=== PATIENT | female | born 1940 | race Caucasian/White ===

== ENCOUNTER 2016-02-26 15:35 | Observation (INO) ==
--- NOTE | 2016-02-26 17:09 | Emergency Department Note ---
Disposition Clinical Impression: Brain lesion, Confusion, Hypertension, Diabetes mellitus, Obesity Disposition: Admitted As Inpatient Referrals: Fabio Mckenzie MD [Primary Care Provider] - Forms: ED Satisfaction Letter General Adult HPI - General Chief complaint: ED Neuro Symptoms/Deficit Stated complaint: Numbness to mouth and bilat hands Source: patient Limitations: no limitations - History of Present Illness HPI Narrative: 76-year-old female comes in from home with family members, there is concern for a headache and some numbness and tingling around the mouth and bilateral hands which started about 9 AM. The patient was doing fine yesterday. She developed some symptomatology today, there is no history of trauma neck stiffness rash or fever no convulsion or eufemia confusion but the patient does like she cannot think as clearly as usual. There is no history of chest pain shortness of breath or abdominal pain no vomiting or diarrhea no back pain and no trouble moving the arms or legs independently. No coldness of blueness numbness or weakness of the arms or legs. No rashes or fevers. The patient denies any significant anxiety. She reports the numbness has resolved. There is no history of bleeding of any sort. She does have a history of atrial fibrillation but his never had a stroke. There is no history of leg swelling or pain or coughing up blood or syncope. Her has been no unilateral arm or leg weakness, no eufemia dysarthria or her finding difficulty. Onset (ago): hour(s) Pain Scale: 6 - Related Data Home Medications Medication Instructions Recorded Confirmed Aspirin Enteric Coated [Aspirin EC] 81 mg PO DAILY 01/15/15 01/15/15 Ergocalciferol (VITAMIN D2) 50,000 unit PO QWEEK 01/15/15 01/15/15 [Vitamin D2 (50,000 UNIT)] Insulin NPH/REG 70/30 [HumuLIN 30 unit SQ TIDAC 01/15/15 01/15/15 70/30 VIAL] Previous Rx's Medication Instructions Recorded Atorvastatin [Lipitor] 80 mg PO HS #30 tablet 01/19/15 Diltiazem CD (24hr) [Cardizem CD] 180 mg PO DAILY #30 cap.er.24h 01/19/15 Metoprolol [Lopressor] 25 mg PO BID #60 tablet 01/19/15 Warfarin [Coumadin] 5 mg PO DAILY@1800 #7 tablet 01/19/15 Allergies Allergy/AdvReac Type Severity Reaction Status Date / Time Sulfa (Sulfonamide Allergy Swelling Verified 01/15/15 16:22 Antibiotics) of Lip/Tongue/Throat All systems ED: reviewed and negative except as stated. Past Medical History - Past Medical History Medical history: Reports: atrial fibrillation, diabetes, fibromyalgia, hypertension, kidney stones, renal disease Surgical history: Reports: orthopedic, other, other Psychiatric history: Reports: no psych history - Social History Smoking Status: Never smoker Smokeless Tobacco Status: No Alcohol use: Reports: none Drug use: Reports: none Physical Exam - General Limitations: no limitations General appearance: alert, in no apparent distress - Head Head exam: atraumatic, normocephalic, normal inspection - Eye Eye exam: Present: normal appearance, PERRL, EOMI. Absent: miosis, mydriasis - ENT ENT exam: normal exam, normal oropharynx, mucous membranes moist - Neck Neck exam: Present: normal inspection, full ROM, trachea midline. Absent: meningismus - Chest Chest inspection: Present: symmetric chest wall rise. Absent: tenderness - Respiratory Respiratory exam: Present: normal lung sounds bilaterally. Absent: respiratory distress - Cardiovascular Cardiovascular exam: Present: regular rate, normal rhythm, normal heart sounds - Abdominal Exam Abdominal exam: Present: soft, Non-Tender. Absent: tenderness, distention, guarding, rebound, rigidity, pulsatile mass - Extremities Exam Extremities exam: Present: normal inspection, full ROM, normal capillary refill. Absent: tenderness, pedal edema, joint swelling, calf tenderness - Expanded Lower Extremity Exam Lower leg exam: Absent: Homans' sign Neurovascular/Tendon exam: Absent: motor deficit, sensory deficit, tendon deficit - Back Exam Back exam: Present: normal inspection, full ROM. Absent: tenderness, CVA tenderness (R), CVA tenderness (L), vertebral tenderness - Neurological Exam Neurological exam: Present: alert, oriented X3, CN II-XII intact. Absent: motor sensory deficit - Psychiatric Psychiatric exam: Present: normal affect, normal mood - Skin Skin exam: Present: warm, dry, intact, normal color Course Vital Signs Temperature 97.9 F 02/26/16 16:22 Pulse Rate 79 02/26/16 16:22 Respiratory Rate 18 02/26/16 16:22 Blood Pressure 197/96 02/26/16 16:22 O2 Sat by Pulse Oximetry 95 02/26/16 16:22 Temperature 97.9 F 02/26/16 16:22 Pulse Rate 76 02/26/16 17:56 Respiratory Rate 16 02/26/16 17:56 Blood Pressure 189/92 02/26/16 17:56 O2 Sat by Pulse Oximetry 93 L 02/26/16 17:56 Oxygen Delivery Oxygen Delivery Room Air Medical Decision Making - MDM Narrative Medical decision making narrative: The patient's brain imaging shows an apparent cyst. I discussed the case with Dr. Tavreas neurologist can consult on the patient does not necessarily think the patient needs transfer based on the anatomic abnormality. In the ED. The patient's testing was essentially unremarkable however her blood pressure did remain persistently elevated. She did perseverate some in the ED and we did order some labetalol. The patient's neck is supple she has not febrile her white count is normal her CRP is negative and she displays no focal defects. The patient described lip tingling and or numbness of both extremities. I do not think the patient has meningitis. She is not describing chest pain her chest x-ray is normal. I do not think she has an aortic dissection or carotid dissection based on clinical history and negative chest x-ray findings. She does have palpable pulses. The patient does have significant hypertension which may be contributory to her apparent perseveration and/or confusion, hypertensive urgency or hypertensive emergency or certainly in the differential. The patient displays no focal neurologic defects. An MRI of the brain, and or a CTA chest may be considered. I consulted the hospitalist on- call. - Lab Data Lab results reviewed: Yes I reviewed the patient's lab results. Result diagrams: 02/26/16 18:10 02/26/16 18:10 Lab Results 02/26/16 02/26/16 02/26/16 Range/Units 16:27 18:08 18:10 WBC 9.4 (4.3-11.1) K/mcL RBC 4.80 (3.82-4.97) M/mcL Hgb 13.8 (11.5-15.4) g/dL Hct 42.2 (35.3-44.9) % MCV 87.9 (83.0-100.0) fL MCH 28.8 (28.0-33.3) pg MCHC 32.7 (31.6-35.5) g/dL RDW 12.9 (11.5-14.5) % Plt Count 225 (140-400) K/mcL MPV 12.3 (9.4-12.4) fL Immature Gran % 0.3 (0-4) % Seg Neutrophils % 71.3 % Lymphocytes % 16.9 % Monocytes % 7.9 % Eosinophils % 3.0 % Basophils % 0.6 % Neutrophils # 6.7 (1.6-8.9) K/mcL Lymphocytes # 1.6 (0.6-4.6) K/mcL Monocytes # 0.7 (0.0-1.3) K/mcL Eosinophils # 0.3 (0.0-0.6) K/mcL Basophils # 0.1 (0.0-0.2) K/mcL PT (9.4-12.1) Seconds INR APTT (26.0-36.0) Seconds Sodium (136-145) mEq/L Potassium (3.5-4.5) mEq/L Chloride (98-109) mEq/L Carbon Dioxide (19-29) mEq/L BUN (7-20) mg/dL Creatinine (0.57-1.11) mg/dL Est GFR ( Amer) (> 60) Est GFR (Non-Af Amer) (> 60) BUN/Creatinine Ratio (6-26) Glucose (70-99) mg/dL POC Glucose 258 H (58-89) Calculated Osmolality (280-300) Lactic Acid (0.5-2.2) mmol/L Calcium (8.6-10.8) mg/dL Total Bilirubin (0.2-1.2) mg/dL Direct Bilirubin (0.0-0.5) mg/dL Indirect Bilirubin (0.0-1.2) mg/dL AST (5-34) Units/L ALT (0-55) Units/L Alkaline Phosphatase (38-126) Units/L Ammonia (18-72) mcmol/L Troponin I (0-0.03) ng/mL C-Reactive Protein (Less than 5) mg/L Serum Total Protein (6.0-8.3) g/dL Albumin (3.5-5.0) g/dL Globulin (2.4-3.5) g/dL Albumin/Globulin Ratio (1.1-2.2) Urine Color (Yellow) Urine Clarity (Clear) Urine pH (5.0-8.0) pH Units Ur Specific Guthrie (1.010-1.025) Urine Protein (Neg-Trace) mg/dL Urine Glucose (UA) (Normal) mg/dL Urine Ketones (Negative) mg/dL Urine Blood (Negative) Urine Nitrite (Negative) Urine Bilirubin (Negative) Urine Urobilinogen (Normal) mg/dL Ur Leukocyte Esterase (Negative) Urine Microscopic RBC (0-3) per hpf Urine Microscopic WBC (0-3) per hpf Ur Squamous Epith Cells (None-Few) per lpf Urine Bacteria (None-Few) per hpf Hyaline Casts (None-Few) per lpf Ur Culture Indicated? (NO) Salicylates (15-30) mg/dL Urine Opiates Screen (Kwaczo=252) ng/mL Acetaminophen (10-30) mcg/mL Ur Barbiturates Screen (Gecxqf=917) ng/mL Ur Phencyclidine Scrn (Cutoff=25) ng/mL Ur Amphetamines Screen (Qrtmif=3951) ng/mL U Benzodiazepines Scrn (Egklse=976) ng/mL Urine Cocaine Screen (Cutoff= 300) ng/mL U Marijuana (THC) Screen (Cutoff = 50) ng/mL Specimen Rejected Clotted 02/26/16 02/26/16 02/26/16 Range/Units 18:10 18:10 18:10 WBC (4.3-11.1) K/mcL RBC (3.82-4.97) M/mcL Hgb (11.5-15.4) g/dL Hct (35.3-44.9) % MCV (83.0-100.0) fL MCH (28.0-33.3) pg MCHC (31.6-35.5) g/dL RDW (11.5-14.5) % Plt Count (140-400) K/mcL MPV (9.4-12.4) fL Immature Gran % (0-4) % Seg Neutrophils % % Lymphocytes % % Monocytes % % Eosinophils % % Basophils % % Neutrophils # (1.6-8.9) K/mcL Lymphocytes # (0.6-4.6) K/mcL Monocytes # (0.0-1.3) K/mcL Eosinophils # (0.0-0.6) K/mcL Basophils # (0.0-0.2) K/mcL PT (9.4-12.1) Seconds INR APTT (26.0-36.0) Seconds Sodium 139 (136-145) mEq/L Potassium 4.3 (3.5-4.5) mEq/L Chloride 103 (98-109) mEq/L Carbon Dioxide 28 (19-29) mEq/L BUN 20 (7-20) mg/dL Creatinine 0.99 (0.57-1.11) mg/dL Est GFR ( Amer) > 60 (> 60) Est GFR (Non-Af Amer) 55 L (> 60) BUN/Creatinine Ratio 20 (6-26) Glucose 265 H (70-99) mg/dL POC Glucose (58-89) Calculated Osmolality 300 (280-300) Lactic Acid (0.5-2.2) mmol/L Calcium 9.5 (8.6-10.8) mg/dL Total Bilirubin 0.7 (0.2-1.2) mg/dL Direct Bilirubin 0.3 (0.0-0.5) mg/dL Indirect Bilirubin 0.4 (0.0-1.2) mg/dL AST 33 (5-34) Units/L ALT 40 (0-55) Units/L Alkaline Phosphatase 167 H (38-126) Units/L Ammonia (18-72) mcmol/L Troponin I 0.01 (0-0.03) ng/mL C-Reactive Protein 2 (Less than 5) mg/L Serum Total Protein 6.7 (6.0-8.3) g/dL Albumin 3.1 L (3.5-5.0) g/dL Globulin 3.6 H (2.4-3.5) g/dL Albumin/Globulin Ratio 0.9 L (1.1-2.2) Urine Color (Yellow) Urine Clarity (Clear) Urine pH (5.0-8.0) pH Units Ur Specific Guthrie (1.010-1.025) Urine Protein (Neg-Trace) mg/dL Urine Glucose (UA) (Normal) mg/dL Urine Ketones (Negative) mg/dL Urine Blood (Negative) Urine Nitrite (Negative) Urine Bilirubin (Negative) Urine Urobilinogen (Normal) mg/dL Ur Leukocyte Esterase (Negative) Urine Microscopic RBC (0-3) per hpf Urine Microscopic WBC (0-3) per hpf Ur Squamous Epith Cells (None-Few) per lpf Urine Bacteria (None-Few) per hpf Hyaline Casts (None-Few) per lpf Ur Culture Indicated? (NO) Salicylates (15-30) mg/dL Urine Opiates Screen (Cuosqb=564) ng/mL Acetaminophen (10-30) mcg/mL Ur Barbiturates Screen (Bkslnd=047) ng/mL Ur Phencyclidine Scrn (Cutoff=25) ng/mL Ur Amphetamines Screen (Dhsbga=9597) ng/mL U Benzodiazepines Scrn (Oigluk=062) ng/mL Urine Cocaine Screen (Cutoff= 300) ng/mL U Marijuana (THC) Screen (Cutoff = 50) ng/mL Specimen Rejected 02/26/16 02/26/16 02/26/16 Range/Units 18:10 18:10 18:10 WBC (4.3-11.1) K/mcL RBC (3.82-4.97) M/mcL Hgb (11.5-15.4) g/dL Hct (35.3-44.9) % MCV (83.0-100.0) fL MCH (28.0-33.3) pg MCHC (31.6-35.5) g/dL RDW (11.5-14.5) % Plt Count (140-400) K/mcL MPV (9.4-12.4) fL Immature Gran % (0-4) % Seg Neutrophils % % Lymphocytes % % Monocytes % % Eosinophils % % Basophils % % Neutrophils # (1.6-8.9) K/mcL Lymphocytes # (0.6-4.6) K/mcL Monocytes # (0.0-1.3) K/mcL Eosinophils # (0.0-0.6) K/mcL Basophils # (0.0-0.2) K/mcL PT 10.9 (9.4-12.1) Seconds INR 1.0 APTT 29.3 (26.0-36.0) Seconds Sodium (136-145) mEq/L Potassium (3.5-4.5) mEq/L Chloride (98-109) mEq/L Carbon Dioxide (19-29) mEq/L BUN (7-20) mg/dL Creatinine (0.57-1.11) mg/dL Est GFR ( Amer) (> 60) Est GFR (Non-Af Amer) (> 60) BUN/Creatinine Ratio (6-26) Glucose (70-99) mg/dL POC Glucose (58-89) Calculated Osmolality (280-300) Lactic Acid (0.5-2.2) mmol/L Calcium (8.6-10.8) mg/dL Total Bilirubin (0.2-1.2) mg/dL Direct Bilirubin (0.0-0.5) mg/dL Indirect Bilirubin (0.0-1.2) mg/dL AST (5-34) Units/L ALT (0-55) Units/L Alkaline Phosphatase (38-126) Units/L Ammonia 34 (18-72) mcmol/L Troponin I (0-0.03) ng/mL C-Reactive Protein (Less than 5) mg/L Serum Total Protein (6.0-8.3) g/dL Albumin (3.5-5.0) g/dL Globulin (2.4-3.5) g/dL Albumin/Globulin Ratio (1.1-2.2) Urine Color (Yellow) Urine Clarity (Clear) Urine pH (5.0-8.0) pH Units Ur Specific Guthrie (1.010-1.025) Urine Protein (Neg-Trace) mg/dL Urine Glucose (UA) (Normal) mg/dL Urine Ketones (Negative) mg/dL Urine Blood (Negative) Urine Nitrite (Negative) Urine Bilirubin (Negative) Urine Urobilinogen (Normal) mg/dL Ur Leukocyte Esterase (Negative) Urine Microscopic RBC (0-3) per hpf Urine Microscopic WBC (0-3) per hpf Ur Squamous Epith Cells (None-Few) per lpf Urine Bacteria (None-Few) per hpf Hyaline Casts (None-Few) per lpf Ur Culture Indicated? (NO) Salicylates < 5.0 L (15-30) mg/dL Urine Opiates Screen (Mgzhlf=389) ng/mL Acetaminophen < 1.0 L (10-30) mcg/mL Ur Barbiturates Screen (Xqjvir=446) ng/mL Ur Phencyclidine Scrn (Cutoff=25) ng/mL Ur Amphetamines Screen (Tfzwed=7984) ng/mL U Benzodiazepines Scrn (Mysdzj=849) ng/mL Urine Cocaine Screen (Cutoff= 300) ng/mL U Marijuana (THC) Screen (Cutoff = 50) ng/mL Specimen Rejected 02/26/16 02/26/16 02/26/16 Range/Units 18:47 19:30 19:30 WBC (4.3-11.1) K/mcL RBC (3.82-4.97) M/mcL Hgb (11.5-15.4) g/dL Hct (35.3-44.9) % MCV (83.0-100.0) fL MCH (28.0-33.3) pg MCHC (31.6-35.5) g/dL RDW (11.5-14.5) % Plt Count (140-400) K/mcL MPV (9.4-12.4) fL Immature Gran % (0-4) % Seg Neutrophils % % Lymphocytes % % Monocytes % % Eosinophils % % Basophils % % Neutrophils # (1.6-8.9) K/mcL Lymphocytes # (0.6-4.6) K/mcL Monocytes # (0.0-1.3) K/mcL Eosinophils # (0.0-0.6) K/mcL Basophils # (0.0-0.2) K/mcL PT (9.4-12.1) Seconds INR APTT (26.0-36.0) Seconds Sodium (136-145) mEq/L Potassium (3.5-4.5) mEq/L Chloride (98-109) mEq/L Carbon Dioxide (19-29) mEq/L BUN (7-20) mg/dL Creatinine (0.57-1.11) mg/dL Est GFR ( Amer) (> 60) Est GFR (Non-Af Amer) (> 60) BUN/Creatinine Ratio (6-26) Glucose (70-99) mg/dL POC Glucose (58-89) Calculated Osmolality (280-300) Lactic Acid 0.9 (0.5-2.2) mmol/L Calcium (8.6-10.8) mg/dL Total Bilirubin (0.2-1.2) mg/dL Direct Bilirubin (0.0-0.5) mg/dL Indirect Bilirubin (0.0-1.2) mg/dL AST (5-34) Units/L ALT (0-55) Units/L Alkaline Phosphatase (38-126) Units/L Ammonia (18-72) mcmol/L Troponin I (0-0.03) ng/mL C-Reactive Protein (Less than 5) mg/L Serum Total Protein (6.0-8.3) g/dL Albumin (3.5-5.0) g/dL Globulin (2.4-3.5) g/dL Albumin/Globulin Ratio (1.1-2.2) Urine Color Yellow (Yellow) Urine Clarity Clear (Clear) Urine pH 7.5 (5.0-8.0) pH Units Ur Specific Guthrie 1.016 (1.010-1.025) Urine Protein >=300 H (Neg-Trace) mg/dL Urine Glucose (UA) 500 H (Normal) mg/dL Urine Ketones Negative (Negative) mg/dL Urine Blood Moderate H (Negative) Urine Nitrite Negative (Negative) Urine Bilirubin Negative (Negative) Urine Urobilinogen Normal (Normal) mg/dL Ur Leukocyte Esterase Negative (Negative) Urine Microscopic RBC 5-15 H (0-3) per hpf Urine Microscopic WBC 0-3 (0-3) per hpf Ur Squamous Epith Cells Many H (None-Few) per lpf Urine Bacteria None Seen (None-Few) per hpf Hyaline Casts None Seen (None-Few) per lpf Ur Culture Indicated? NO (NO) Salicylates (15-30) mg/dL Urine Opiates Screen Negative (Ddxeqz=221) ng/mL Acetaminophen (10-30) mcg/mL Ur Barbiturates Screen Negative (Nspxgx=264) ng/mL Ur Phencyclidine Scrn Negative (Cutoff=25) ng/mL Ur Amphetamines Screen Negative (Hxaojh=2309) ng/mL U Benzodiazepines Scrn Negative (Pfpnwr=384) ng/mL Urine Cocaine Screen Negative (Cutoff= 300) ng/mL U Marijuana (THC) Screen Negative (Cutoff = 50) ng/mL Specimen Rejected - Radiology Data Radiology results reviewed: Yes I reviewed the patient's radiology results.
[2016-02-26 18:29] LABS: Basophils # 0.1 K/mcL (0.0-0.2); Basophils % 0.6 %; Eosinophils # 0.3 K/mcL (0.0-0.6); Hematocrit 42.2 % (35.3-44.9); Hemoglobin 13.8 g/dL (11.5-15.4); Immature Granulocytes % 0.3 % (0-4); Lymphocytes # 1.6 K/mcL (0.6-4.6); Lymphocytes % 16.9 %; Mean Corpuscular HGB Conc 32.7 g/dL (31.6-35.5); Mean Corpuscular Hemoglobin 28.8 pg (28.0-33.3); Mean Corpuscular Volume 87.9 fL (83.0-100.0); Mean Platelet Volume 12.3 fL (9.4-12.4); Monocytes # 0.7 K/mcL (0.0-1.3); Monocytes % 7.9 %; Neutrophils # 6.7 K/mcL (1.6-8.9); Platelet Count 225 K/mcL (140-400); Red Cell Distribution Width 12.9 % (11.5-14.5); Segmented Neutrophils % 71.3 %
[2016-02-26 18:36] LABS: Prothrombin Time 10.9 Seconds (9.4-12.1)
[2016-02-26 18:39] LABS: Activated Partial Thrombo Time 29.3 Seconds (26.0-36.0); BUN/Creatinine Ratio 20 (6-26); Blood Urea Nitrogen 20 mg/dL (7-20); Calcium 9.5 mg/dL (8.6-10.8); Carbon Dioxide 28 mEq/L (19-29); Chloride 103 mEq/L (98-109); Glucose 265 mg/dL (70-99); Osmolality,Calculated 300 (280-300); Potassium 4.3 mEq/L (3.5-4.5); Sodium 139 mEq/L (136-145); eGFR For African Americans > 60 (> 60); eGFR For Non-African Americans 55 (> 60)
[2016-02-26 18:41] LABS: Acetaminophen < 1.0 mcg/mL (10-30); Albumin 3.1 g/dL (3.5-5.0); Albumin/Globulin Ratio 0.9 (1.1-2.2); Bilirubin,Direct 0.3 mg/dL (0.0-0.5); Bilirubin,Indirect 0.4 mg/dL (0.0-1.2); Bilirubin,Total 0.7 mg/dL (0.2-1.2); Globulin 3.6 g/dL (2.4-3.5); Salicylate < 5.0 mg/dL (15-30); Total Protein 6.7 g/dL (6.0-8.3)
[2016-02-26 20:04] LABS: Bilirubin,Urine Negative (Negative); Blood,Urine Moderate (Negative); Clarity,Urine Clear (Clear); Color,Urine Yellow (Yellow); Glucose,Urine (UA) 500 mg/dL (Normal); Ketones,Urine Negative (Negative); Leukocyte Esterase,Urine Negative (Negative); Nitrite,Urine Negative (Negative); PH,Urine 7.5 pH Units (5.0-8.0); Protein,Urine >=300 mg/dL (Neg-Trace); Specific Gravity,Urine 1.016 (1.010-1.025); Urobilinogen,Urine Normal (Normal)
[2016-02-26 20:07] LABS: Bacteria,Urine None Seen per hpf (None-Few); Hyaline Casts,Urine None Seen per lpf (None-Few); Squamous Epithelial Cell,Urine Many per lpf (None-Few); WBC,Urine 0-3 per hpf (0-3)
[2016-02-26 20:10] LABS: Amphetamine Screen,Urine Negative ng/mL (Cutoff=1000); Barbiturate Screen,Urine Negative ng/mL (Cutoff=200); Benzodiazepines Screen,Urine Negative ng/mL (Cutoff=200); Cannabinoid Screen,Urine Negative ng/mL (Cutoff = 50); Cocaine Screen,Urine Negative ng/mL (Cutoff= 300); Opiate Screen,Urine Negative ng/mL (Cutoff=300); Phencyclidine Screen,Urine Negative ng/mL (Cutoff=25)
[2016-02-26] MEDS ORDERED: *HR* Labetalol 20 MG/4 ML SYRINGE IVP ONE ×2 (20:34→22:57)
[2016-02-26] MEDS ORDERED: Ondansetron 4 MG/2 ML VIAL IVP PRN (21:22)
[2016-02-26] MEDS ORDERED: Acetaminophen 325 MG TABLET PO PRN (21:22)
[2016-02-26] MEDS ORDERED: *HR* HYDROcodone/Acet 5/325 mg TABLET PO PRN (21:22)
[2016-02-26] MEDS ORDERED: *HR* Morphine 2 MG/ML SYRINGE IVP PRN (21:22)
[2016-02-26] MEDS ORDERED: Naloxone 0.4 MG/ML INJ IVP PRN (21:22)
[2016-02-26] MEDS ORDERED: D5% in Water 1,000 ML IV PRN (21:26)
[2016-02-26] MEDS ORDERED: *HR* Dextrose 50 % in Water (Syg) 50 ML SYRINGE IVP PRN (21:26)
[2016-02-26] MEDS ORDERED: Dextrose Gel 15 GM PO PRN ×2 (21:26)
--- NOTE | 2016-02-26 23:26 | Internal Med History&Physical ---
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 Laterality: unspecified laterality Qualified Code(s): E11.319 - Type 2 diabetes mellitus with unspecified diabetic retinopathy without macular edema; Z79.4 - care home ( current) use of insulin (4) Chronic kidney disease (CKD) Current visit: Yes Status: Chronic Qualifiers: Chronic kidney disease stage: stage 2 (mild) Qualified Code(s): N18.2 - Chronic kidney disease, stage 2 (mild) (5) Hypertension Current visit: Yes Status: Chronic Qualifiers: Hypertension type: essential hypertension Qualified Code(s): I10 - Essential (primary) hypertension (6) Brain lesion Current visit: Yes Status: Acute (7) Obesity Current visit: Yes Status: Chronic Qualifiers: Obesity type: unspecified obesity type Obesity severity: morbid Qualified Code(s): E66.01 - Morbid (severe) obesity due to excess calories Internal Medicine - H&P: HPI Chief complaint: Altered mental status Admitted From: Home Plans for Post Hospital Care: Home History of present illness: 74 Y/O F with PMH of DM, HTN, CKD, Afib, CAD, Fibromyalgia Patient is currently confused, history obtained from her Last time of wellness was 1300 02/26/16. Per her he had gone home for lunch at noon, and she was in her usual state of health. However, his granddaughter called him at 3.00p.m and stated that patient had become suddenly confused and could not remember anything from the day. She is unable to remember her daily events, her address; she remembers and recognizes her family but does not remember anything else. There is no speech deficits, no focal motor weakness, and no ataxia. No recent falls, her blood glucose has been controlled. There is a history of Afib per chart but is unable to verify this, home meds does not show that patient is on Coumadin. Work up in ER significant for persistently elevated blood pressures, confusion. Labs essentially unremarkable except UA which showed proteinuria, hematuria. CXR showed mild pulmonary congestion. 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 No previous head CT to compare with At my time of review, I had concerns for acute ischemic CVA, Hypertensive Urgency vs Emergency and asked for a STAT Brain MRI, Neuroradiologist recommended it be done with and without contrast. I did not give any blood pressure medications as Brain CT already ruled out a hemorrhage. Physical Examination was significant for blood pressure 190/89, heart rate WNL, no obvious respiratory or painful distress. Neuro exam is remarkable for altered mental status with patient oriented to person only. She however has no speech deficits, moves all limbs equally and has no facial droop. She is maintaining her airway. Chest is clear; abdomen is obese, not tender. heart sounds S1, S2 only, and no m/g/r. Extremities no edema. Assessment/Plan: 1. Altered mental status, possibly secondary to hypertensive encephalopathy. Possible PRES. Brain MRI ruled out acute infarct, Neurochecks q4h. Fall precautions. Will restart home blood pressure medications. BP at time of review improved to 178/76 after a dose of labetalol. Will consult neurology for further evaluation possible EEG to rule out non-convulsive seizures. 2. HTN Urgency vs Emergency: Improving, resume home meds 3. Brain Cyst: Neuro eval a.m 4. DM: Diabetic diet, check A1C a.m., basal, prandial and supplemental insulin, check FS ACHS 5. Afib: Rate controlled, , not on anticoagulation, reason unknown. Continue Aspirin for now. Continue Coreg 6. CKD: Cr at baseline. 7. CAD: Stable, chronic, no chest pain, resume home meds Past Med Surg Social Fam HX - Past Medical History Medical history: atrial fibrillation, diabetes, fibromyalgia, hypertension, kidney stones, renal disease Psychiatric history: no psych history - Past Surgical History Surgical History: orthopedic, other, other - Social History Smoking Status: Never smoker Smokeless Tobacco Status: No Alcohol use: none Drug use: none - Family History Mother Living Status: Hx Family Cancer: Yes (Reproductive CA) Father Living Status: Hx Family Cardiac Disorders: Yes Hx Family Endocrine Disorder: Yes (Diabetes) Internal Medicine - H&P: Meds Aspirin Enteric Coated [Aspirin EC] 81 mg PO DAILY 01/15/15 [History] Ergocalciferol (VITAMIN D2) [Vitamin D2 (50,000 UNIT)] 50,000 unit PO QWEEK 08/23 [History] Atorvastatin [Lipitor] 80 mg PO HS #30 tablet 01/19/15 [Rx] Carvedilol [Coreg] 6.25 mg PO BIDWM 02/26/16 [History] Insulin Degludec [Tresiba Flextouch U-100] 20 unit SQ DAILY 02/26/16 [History] Losartan [Cozaar] 25 mg PO DAILY 02/26/16 [History] Allergies Sulfa (Sulfonamide Antibiotics) Allergy (Verified 01/15/15 16:22) Swelling of Lip/Tongue/Throat ROS unobtainable: due to mental status All Systems PM: A 10-system review of systems was performed and is negative for pertinent findings except as documented above in the HPI. - Constitutional Vitals: Temp Pulse Resp BP Pulse Ox 97.9 F 87 16 178/76 95 02/26/16 16:22 02/26/16 22:00 02/26/16 23:22 02/26/16 23:22 02/26/16 22:00 General appearance: Present: A&O X 1, pleasant, no acute distress, obese - Head Head exam: Present: atraumatic - Eye Eye exam: Present: PERRL, conjuntiva pink, sclera anicteric - Neck Neck exam general surgery: Present: normal inspection - Respiratory Respiratory exam: Present: CTAB - Cardiovascular Cardiovascular exam: Present: irregular rhythm, +S1, +S2 - GI/Abdominal GI/Abdominal exam: Present: normal bowel sounds, soft, no peritoneal signs. Absent: tenderness - Extremities Exam Extremities exam: Absent: pedal edema - Neurological Exam Neurological exam: Present: alert, CN II-XII intact, strengths equal and symetr throughout. Absent: pronater drift, facial droop, speech deficit - Skin Skin exam: Present: dry Internal Med - H&P Results - Labs CBC & Chem 7: 02/26/16 18:10 02/26/16 18:10
[2016-02-27 04:59] LABS: Basophils # 0.1 K/mcL (0.0-0.2); Basophils % 0.4 %; Eosinophils % 0.2 %; Hematocrit 39.5 % (35.3-44.9); Hemoglobin 13.1 g/dL (11.5-15.4); Immature Granulocytes % 0.4 % (0-4); Lymphocytes # 1.5 K/mcL (0.6-4.6); Lymphocytes % 10.8 %; Mean Corpuscular HGB Conc 33.2 g/dL (31.6-35.5); Mean Corpuscular Hemoglobin 29.3 pg (28.0-33.3); Mean Corpuscular Volume 88.4 fL (83.0-100.0); Mean Platelet Volume 12.3 fL (9.4-12.4); Monocytes % 7.4 %; Neutrophils # 11.2 K/mcL (1.6-8.9); Platelet Count 214 K/mcL (140-400); Red Blood Count 4.47 M/mcL (3.82-4.97); Red Cell Distribution Width 12.9 % (11.5-14.5); Segmented Neutrophils % 80.8 %
[2016-02-27 05:03] LABS: INR 1.1; Prothrombin Time 12.4 Seconds (9.4-12.1)
[2016-02-27 05:06] LABS: Activated Partial Thrombo Time 27.1 Seconds (26.0-36.0)
[2016-02-27 05:10] LABS: Hemoglobin A1C 11.6 %
[2016-02-27 05:16] LABS: BUN/Creatinine Ratio 20 (6-26); Blood Urea Nitrogen 20 mg/dL (7-20); Carbon Dioxide 27 mEq/L (19-29); Chloride 102 mEq/L (98-109); Glucose 265 mg/dL (70-99); Osmolality,Calculated 296 (280-300); Potassium 4.7 mEq/L (3.5-4.5); Sodium 137 mEq/L (136-145); eGFR For African Americans > 60 (> 60); eGFR For Non-African Americans 53 (> 60)
[2016-02-27] MEDS: Insulin LISPRO 300 UNITS/3 ML VIAL SQ SCH ×6 (08:18→17:18)
[2016-02-27] MEDS: Aspirin Enteric Coated 81 MG Tablet PO SCH (08:18)
[2016-02-27] MEDS ORDERED: Diltiazem CD (24hr) 180 MG CAPSULE PO SCH (09:00)
--- NOTE | 2016-02-27 11:52 | Neurology - Consult Note ---
Date of Encounter: 02/27/16 Time of Encounter: 11:52 Assessment and Plan (1) Acute encephalopathy Current Visit: Yes Status: Acute NO evidence of stroke. Symptoms are mainly characterized by memory difficulty confusion without focal neurological deficits, likely complicated by medical conditions. 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 Please continue medical and supportive care. Will sign off and please call if any questions History of Present Illness Chief complaint: Memory difficulty HPI: Ms. Baugh is a 76 year old female with PMH significant for atrial fibrillation , HTN, DM, Obesity CKD who developed acute onset of memory difficulty starting yesterday. Interviewed in the presence of her . Tells me that yesterday the patient suddenly developed speech difficulty, actually she could still talk but was confused and unable to remember things and did not know where she was. Symptoms lasted few hours and slowly improved. She still does not feel that she is back to normal and still struggles to remember things but no focal weakness. CT of head showed third ventricle choloid cyst therefore neurology was consulted. MRI of brain showed anterior third ventricle choloid cyst, 1.8 mm in size no mass effects and no evidence of hydrocephalus Past Med Surg Social Fam HX - Past Medical History Medical history: atrial fibrillation, diabetes, fibromyalgia, hypertension, kidney stones, renal disease Psychiatric history: no psych history - Past Surgical History Surgical History: orthopedic, other, other - Social History Smoking Status: Never smoker Smokeless Tobacco Status: No Alcohol use: none Drug use: none - Family History Mother Living Status: Hx Family Cancer: Yes (Reproductive CA) Father Living Status: Hx Family Cardiac Disorders: Yes Hx Family Endocrine Disorder: Yes (Diabetes) Medications and Allergies Aspirin Enteric Coated [Aspirin EC] 81 mg PO DAILY 01/15/15 [History] Ergocalciferol (VITAMIN D2) [Vitamin D2 (50,000 UNIT)] 50,000 unit PO QWEEK 08/23 [History] Atorvastatin [Lipitor] 80 mg PO HS #30 tablet 01/19/15 [Rx] Carvedilol [Coreg] 6.25 mg PO BIDWM 02/26/16 [History] Insulin Degludec [Tresiba Flextouch U-100] 20 unit SQ DAILY 02/26/16 [History] Losartan [Cozaar] 25 mg PO DAILY 02/26/16 [History] Allergies Sulfa (Sulfonamide Antibiotics) Allergy (Verified 01/15/15 16:22) Swelling of Lip/Tongue/Throat All Systems: A 10-system review of systems was performed and is negative for pertinent findings except as documented above in the HPI. Physical Examination - Vital Signs Vital Signs: Initial Vital Signs Temp Pulse Resp BP Pulse Ox 97.9 F 79 18 197/96 95 02/26/16 16:22 02/26/16 16:22 02/26/16 16:22 02/26/16 16:22 02/26/16 16:22 - Constitutional General appearance: chronically ill - Neurologic Sensorimotor examination: intact Detailed motor examination: grossly full strength in all extremities Detailed sensory examination: intact Posture: other (None) Reflexes: Biceps: 0, Triceps: 0, Brachioradialis: 0, Patella: 0, Achilles: 0 Mental Status Examination: awake, alert, oriented to person, oriented to place, oriented to time, follows commands appropriately, answers questions appropriately, no agnosia, no aphasia, no aproxia Cranial nerve examination: PERRL, EOMI, visual solorio intact, corneal reflexes brisk symmetrically, sensory to face intact, mastication intact, no facial asymmetry is present, no dysarthria, hearing is intact symmetrically, soft palate elevates bilaterally upon phonation, gag reflex intact, flexes SCM and trapezius muscles symmetrically with full power, tongue protrudes midline, no atrophy or facial fasiculations present Results - Laboratory Findings CBC and BMP: 02/27/16 04:27 02/27/16 04:27 Abnormal lab findings: Abnormal lab results WBC 13.9 K/mcL (4.3-11.1) H 02/27/16 04:27 Neutrophils # 11.2 K/mcL (1.6-8.9) H 02/27/16 04:27 PT 12.4 Seconds (9.4-12.1) H 02/27/16 04:27 Potassium 4.7 mEq/L (3.5-4.5) H 02/27/16 04:27 Est GFR (Non-Af Amer) 53 (> 60) L 02/27/16 04:27 Glucose 265 mg/dL (70-99) H 02/27/16 04:27 POC Glucose 222 (58-89) H 02/27/16 07:32 Hemoglobin A1c 11.6 % (-5.6) H 02/27/16 04:27 Alkaline Phosphatase 167 Units/L (38-126) H 02/26/16 18:10 Albumin 3.1 g/dL (3.5-5.0) L 02/26/16 18:10 Globulin 3.6 g/dL (2.4-3.5) H 02/26/16 18:10 Albumin/Globulin Ratio 0.9 (1.1-2.2) L 02/26/16 18:10 Urine Protein >=300 mg/dL (Neg-Trace) H 02/26/16 19:30 Urine Glucose (UA) 500 mg/dL (Normal) H 02/26/16 19:30 Urine Blood Moderate (Negative) H 02/26/16 19:30 Urine Microscopic RBC 5-15 per hpf (0-3) H 02/26/16 19:30 Ur Squamous Epith Cells Many per lpf (None-Few) H 02/26/16 19:30 Salicylates < 5.0 mg/dL (15-30) L 02/26/16 18:10 Acetaminophen < 1.0 mcg/mL (10-30) L 02/26/16 18:10 Consult Discharge Plan - Plan Referrals: Fabio Mckenzie MD [Primary Care Provider] -
--- NOTE | 2016-02-27 12:06 | Internal Med Progress Note ---
Date of Encounter: 02/27/16 Time of Encounter: 11:45 - Assessment and plan (1) Acute encephalopathy Current Visit: Yes Status: Acute Assessment and plan: Neurology consult appreciated. No signs of stroke. No further evaluation recommended the neurologist this time. Most likely Due to hypertensive urgency. 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 Evaluated by neurology. Recommend no further investigation at this time. Most likely benign. (3) Diabetes mellitus Current Visit: Yes Status: Chronic Assessment and plan: Uncontrolled. On sliding scale insulin. Diabetic diet. Will adjust insulin regimen to control blood sugars better. 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 Continue carvedilol, losartan Qualifiers: Hypertension type: essential hypertension Qualified Code(s): I10 - Essential (primary) hypertension (5) Hypertensive urgency Current Visit: Yes Status: Resolved Assessment and plan: This has improved. (6) Chronic kidney disease (CKD) Current Visit: Yes Status: Chronic Assessment and plan: Renal function remained stable Qualifiers: Chronic kidney disease stage: stage 2 (mild) Qualified Code(s): N18.2 - Chronic kidney disease, stage 2 (mild) (7) Obesity Current Visit: Yes Status: Chronic Qualifiers: Obesity type: unspecified obesity type Obesity severity: morbid Qualified Code(s): E66.01 - Morbid (severe) obesity due to excess calories - Subjective Interval history: Patient is currently somnolent. easily awakes. No new complaints reported at this time. No headache. - Constitutional Vitals: Temp Pulse Resp BP Pulse Ox 98.0 F 76 18 149/78 91 L 02/27/16 07:33 02/27/16 07:33 02/27/16 07:33 02/27/16 07:33 02/27/16 08:10 General appearance: Present: A&O X 1, pleasant, no acute distress, obese - Respiratory Respiratory exam: Present: CTAB. Absent: accessory muscle use, rales, rhonchi, wheezes - Cardiovascular Cardiovascular exam: Present: RRR, +S1, +S2. Absent: diastolic murmur, gallop, rubs, systolic murmur - Extremities Exam Extremities exam: Present: warm, radial pulses palpable and symetrical. Absent : calf tenderness, cyanotic, pedal edema - Psychiatric Psychiatric exam: Present: normal affect - Skin Skin exam: Present: dry, intact Internal Medicine: Result - Labs CBC & Chem 7: 02/27/16 04:27 02/27/16 04:27 Labs: Short CBC 02/27/16 Range/Units 04:27 WBC 13.9 H (4.3-11.1) K/mcL Hgb 13.1 (11.5-15.4) g/dL Hct 39.5 (35.3-44.9) % Plt Count 214 (140-400) K/mcL Neutrophils # 11.2 H (1.6-8.9) K/mcL BMP 02/27/16 04:27 Sodium 137 Potassium 4.7 H Chloride 102 Carbon Dioxide 27 BUN 20 Creatinine 1.01 Glucose 265 H Calcium 9.0 - ABG Interpretation ABG results: PT/INR, D-dimer PT 12.4 Seconds (9.4-12.1) H 02/27/16 04:27 Consult Discharge Plan - Plan Referrals: Fabio Mckenzie MD [Primary Care Provider] - - Attending Attestation This document has been at least partially created by [employer] recognition technology by Dr. Harrington. Errors in grammar, wording or other phrases may exist. If errors are found after the documentation is signed, they will be addressed individually in the addendum section of this document when appropriate. Medical Decision Making - MDM Narrative Medical decision making narrative: Low risk for complications - Lab Data Lab results reviewed: Yes I reviewed the patient's lab results. Result diagrams: 02/27/16 04:27 02/27/16 04:27 Lab Results 02/27/16 02/27/16 02/27/16 Range/Units 04:27 04:27 04:27 WBC 13.9 H (4.3-11.1) K/mcL RBC 4.47 (3.82-4.97) M/mcL Hgb 13.1 (11.5-15.4) g/dL Hct 39.5 (35.3-44.9) % MCV 88.4 (83.0-100.0) fL MCH 29.3 (28.0-33.3) pg MCHC 33.2 (31.6-35.5) g/dL RDW 12.9 (11.5-14.5) % Plt Count 214 (140-400) K/mcL MPV 12.3 (9.4-12.4) fL Immature Gran % 0.4 (0-4) % Seg Neutrophils % 80.8 % Lymphocytes % 10.8 % Monocytes % 7.4 % Eosinophils % 0.2 % Basophils % 0.4 % Neutrophils # 11.2 H (1.6-8.9) K/mcL Lymphocytes # 1.5 (0.6-4.6) K/mcL Monocytes # 1.0 (0.0-1.3) K/mcL Eosinophils # 0.0 (0.0-0.6) K/mcL Basophils # 0.1 (0.0-0.2) K/mcL PT 12.4 H (9.4-12.1) Seconds INR 1.1 APTT 27.1 (26.0-36.0) Seconds Sodium 137 (136-145) mEq/L Potassium 4.7 H (3.5-4.5) mEq/L Chloride 102 (98-109) mEq/L Carbon Dioxide 27 (19-29) mEq/L BUN 20 (7-20) mg/dL Creatinine 1.01 (0.57-1.11) mg/dL Est GFR ( Amer) > 60 (> 60) Est GFR (Non-Af Amer) 53 L (> 60) BUN/Creatinine Ratio 20 (6-26) Glucose 265 H (70-99) mg/dL POC Glucose (58-89) Est Mean Plasma Glucose mg/dl Hemoglobin A1c ( - 5.6) % Calculated Osmolality 296 (280-300) Calcium 9.0 (8.6-10.8) mg/dL 02/27/16 02/27/16 02/27/16 Range/Units 04:27 07:32 12:01 WBC (4.3-11.1) K/mcL RBC (3.82-4.97) M/mcL Hgb (11.5-15.4) g/dL Hct (35.3-44.9) % MCV (83.0-100.0) fL MCH (28.0-33.3) pg MCHC (31.6-35.5) g/dL RDW (11.5-14.5) % Plt Count (140-400) K/mcL MPV (9.4-12.4) fL Immature Gran % (0-4) % Seg Neutrophils % % Lymphocytes % % Monocytes % % Eosinophils % % Basophils % % Neutrophils # (1.6-8.9) K/mcL Lymphocytes # (0.6-4.6) K/mcL Monocytes # (0.0-1.3) K/mcL Eosinophils # (0.0-0.6) K/mcL Basophils # (0.0-0.2) K/mcL PT (9.4-12.1) Seconds INR APTT (26.0-36.0) Seconds Sodium (136-145) mEq/L Potassium (3.5-4.5) mEq/L Chloride (98-109) mEq/L Carbon Dioxide (19-29) mEq/L BUN (7-20) mg/dL Creatinine (0.57-1.11) mg/dL Est GFR ( Amer) (> 60) Est GFR (Non-Af Amer) (> 60) BUN/Creatinine Ratio (6-26) Glucose (70-99) mg/dL POC Glucose 222 H 331 H (58-89) Est Mean Plasma Glucose 286 mg/dl Hemoglobin A1c 11.6 H ( - 5.6) % Calculated Osmolality (280-300) Calcium (8.6-10.8) mg/dL
--- NOTE | 2016-02-27 13:23 | Electrocardiograph Report ---
[facility] Test Date: 2016-02-26 Pat Name: Courtney Baugh Department: 105 Room: 3B11 Gender: F Manager [employer]: KHUSHI : 1940 Requested By: Trevon Sanders Order Number: [id number] Reading MD: Quinton Story MD Measurements Intervals Amo Rate: 76 P: 12 [place]: 161 QRS: -5 QRSD: 96 T: 122 QT: 374 QTc: 405 Interpretive Statements SINUS RHYTHM LEFT VENTRICULAR HYPERTROPHY AND ST-T CHANGE Electronically Signed On 02-27-16 13:22:05 EST by Quinton Story MD
[2016-02-27] MEDS ORDERED: *HR* Warfarin 5 MG TABLET PO SCH (18:00)
[2016-02-27] MEDS ORDERED: Insulin DETEMIR 100 UNIT/ML X5UNITS SQ SCH (21:00)
[2016-02-27] MEDS ORDERED: Insulin LISPRO 300 UNITS/3 ML VIAL SQ SCH (21:00)
[2016-02-28] MEDS: Insulin LISPRO 300 UNITS/3 ML VIAL SQ SCH ×4 (07:31→11:34)
[2016-02-28] MEDS: Aspirin Enteric Coated 81 MG Tablet PO SCH (08:26)
--- NOTE | 2016-02-28 10:23 | Discharge Summary ---
Date of Encounter: 02/28/16 Time of Encounter: 10:30 - Discharge Diagnosis (1) Acute encephalopathy Priority: Primary Status: Acute (2) Brain lesion Priority: Secondary Status: Acute (3) Diabetes mellitus Priority: Secondary Status: Chronic Qualifiers: Diabetes mellitus type: type 2 Diabetes mellitus complication status: with kidney complications Diabetes mellitus complication detail: with chronic kidney disease Diabetes mellitus emt intermediate insulin use: with emt intermediate use Chronic kidney disease stage: stage 2 (mild) Qualified Code(s): E11.22 - Type 2 diabetes mellitus with diabetic chronic kidney disease; N18.2 - Chronic kidney disease, stage 2 (mild); Z79.4 - terminal worker (current) use of insulin (4) Hypertension Priority: Secondary Status: Chronic Qualifiers: Hypertension type: essential hypertension Qualified Code(s): I10 - Essential (primary) hypertension (5) Hypertensive urgency Priority: Secondary Status: Resolved (6) Chronic kidney disease (CKD) Priority: Secondary Status: Chronic Qualifiers: Chronic kidney disease stage: stage 2 (mild) Qualified Code(s): N18.2 - Chronic kidney disease, stage 2 (mild) (7) Obesity Priority: Secondary Status: Chronic Qualifiers: Obesity type: unspecified obesity type Obesity severity: morbid Qualified Code(s): E66.01 - Morbid (severe) obesity due to excess calories - Discharge Medications Prescriptions: HydrALAZINE 25 mg PO Q8HR #90 tablet Home Medications: Aspirin Enteric Coated [Aspirin EC] 81 mg PO DAILY 01/15/15 [History] Ergocalciferol (VITAMIN D2) [Vitamin D2 (50,000 UNIT)] 50,000 unit PO QWEEK 08/23 [History] Atorvastatin [Lipitor] 80 mg PO HS #30 tablet 01/19/15 [Rx] Carvedilol [Coreg] 6.25 mg PO BIDWM 02/26/16 [History] Insulin Degludec [Tresiba Flextouch U-100] 20 unit SQ DAILY 02/26/16 [History] Losartan [Cozaar] 25 mg PO DAILY 02/26/16 [History] HydrALAZINE 25 mg PO Q8HR #90 tablet 02/28/16 [Rx] Allergies/Adverse Reactions: Allergies Sulfa (Sulfonamide Antibiotics) Allergy (Verified 01/15/15 16:22) Swelling of Lip/Tongue/Throat Date of admission: 02/26/16 21:22 Primary care physician: Fabio Mckenzie, Consults: 02/26/16 23:20 Consult to Neurology [CONS] Routine Consulting Provider: [facility] Reason for Consult: encephalopathy, confusion Call Completed: No 02/27/16 12:02 Consult to Occupational Therapy [CONS] Routine Comment: Evaluate, develop and implement POC Consult to Physical Therapy [CONS] Routine Comment: Evaluate, develop and implement POC Consult to Launch Leader [CONS] Routine Reason for SW Consult: Discharge planning 02/27/16 16:35 Consult to Speech Therapy [CONS] Routine Comment: Evaluate, develop and implement POC Reason for Consult: Speech difficulty/ encephalopathy on presentation Call Completed: No Discharging clinician: Yadiel Harrington Anticipated date of discharge: 02/28/16 - Patient Status Disposition: Home Health Service Condition: Good Functional capacity at discharge: independent ambulation Overall status at discharge: patient is back to baseline - Discharge Instructions Instructions: Diabetes Mellitus Type 2 in Adults (DC), Chronic Hypertension (DC ) Follow Up With: Fabio Mckenzie MD [Primary Care Provider] - (In 1-2 weeks) Additional Instructions: Follow up with nephrology in 1-2 weeks Follow-up appointments: If there is not an appointment listed below, please call your physician and schedule a follow-up appointment. If you have congestive heart failure and your symptoms return, make an appointment with your physician. Symptoms: If your condition changes or you experience any of the following symptoms, notify your physician immediately: Unusual or worsening pain, fever, persistent nausea and vomiting, bleeding, increase in swelling (especially in your legs), sudden weight gain, extreme dizziness, chest pain, increased drainage or redness from a wound or incision. Go to the emergency department if you experience a problem with breathing. Weights: If you have a history of swelling or shortness of breath, weigh yourself daily and notify your physician if you have a weight gain of two or more pounds in one day or 5 or more pounds in a week. If you experience any of the warning signs for stroke: Sudden numbness or weakness of the face, arm or leg; especially on one side of the body, sudden confusion, trouble speaking or understanding, sudden trouble seeing in one or both eyes, sudden trouble walking, dizziness, loss of balance or coordination, sudden sever headache with no cause; Call 911 or go to the emergency room. Stroke is a medical emergency. Some risk factors for stroke: Age, cigarette smoking, diabetes, excessive alcohol consumption, family history , high blood pressure, overweight, physical inactivity, prior stroke, heart attack, diagnosis of carotid artery stenosis or other artery disease. If you smoke, STOP: Smoking or tobacco use significantly increases your risk of heart and lung disease. Your chance of disease greatly increases if you continue to smoke. For more information, call the [place] tobacco quit line for smoking cessation QUIT-NOW ( ) - Diet and Activity Activity: increase activity as tolerated Diet: diabetic diet, low fat, low cholesterol, low salt diet Hospital course: Ms. Baugh is a 76 year old female with a history of chronic kidney disease, hypertension, diabetes mellitus was observed in the ER after presenting with complaints of altered mental status and difficulty with speech. On presentation she had severely elevated blood pressure. MRI of the brain was done which did not show any acute infarct. Patient was then observed in the hospital and her blood pressure was managed with oral and intravenous medications. Her blood pressure has since improved. She is no longer confused. Her speech has also improved. Neurology was consulted. He did not recommend any further management and did not believe the patient had any signs of stroke. At this time, patient is stable to be discharged home. She will be started on hydralazine for high blood pressure. She also takes carvedilol and losartan. Her heart rate has been in the 60s. Her potassium is 4.7. As such a third medication to control her blood pressure is warranted and should have increasing her current antihypertensives. Her encephalopathy appears to be related to her hypertensive urgency and it has since subsided. - Time Spent with Patient Total time spent providing and/or coordinating discharge services: Greater than 30 minutes (40 min) - Constitutional Vitals: Temp Pulse Resp BP Pulse Ox 97.5 F L 60 16 152/76 91 L 02/28/16 07:06 02/28/16 07:06 02/28/16 07:06 02/28/16 07:06 02/28/16 07:06 General appearance: Present: cooperative, A&O X 3, pleasant, no acute distress, obese, answers questions appropriately - Respiratory Respiratory exam: Present: CTAB. Absent: accessory muscle use, rales, rhonchi, wheezes - Cardiovascular Cardiovascular exam: Present: RRR, +S1, +S2. Absent: diastolic murmur, gallop, rubs, systolic murmur - GI/Abdominal GI/Abdominal exam: Present: normal bowel sounds, soft, no peritoneal signs. Absent: distended, tenderness - Extremities Exam Extremities exam: Present: pedal edema (Trace), warm, radial pulses palpable and symetrical. Absent: calf tenderness, cyanotic - Neurological Exam Neurological exam: Present: CN II-XII intact, oriented X3, no focal deficits. Absent: facial droop, speech deficit - Attending Attestation This document has been at least partially created by [employer] recognition technology by Dr. Harrington. Errors in grammar, wording or other phrases may exist. If errors are found after the documentation is signed, they will be addressed individually in the addendum section of this document when appropriate.
[2016-02-28 11:15] VITALS: BP 175/78
[2016-02-28 11:39] LABS: Basophils # 0.1 K/mcL (0.0-0.2); Basophils % 0.7 %; Eosinophils # 0.3 K/mcL (0.0-0.6); Eosinophils % 3.1 %; Hematocrit 41.8 % (35.3-44.9); Hemoglobin 13.4 g/dL (11.5-15.4); Immature Granulocytes % 0.4 % (0-4); Immature Platelets 10.1 % (1.1-6.1); Lymphocytes # 1.5 K/mcL (0.6-4.6); Lymphocytes % 16.6 %; Mean Corpuscular HGB Conc 32.1 g/dL (31.6-35.5); Mean Corpuscular Hemoglobin 28.8 pg (28.0-33.3); Mean Corpuscular Volume 89.7 fL (83.0-100.0); Mean Platelet Volume 12.6 fL (9.4-12.4); Monocytes # 0.8 K/mcL (0.0-1.3); Neutrophils # 6.5 K/mcL (1.6-8.9); Platelet Count 206 K/mcL (140-400); Red Blood Count 4.66 M/mcL (3.82-4.97); Red Cell Distribution Width 13.2 % (11.5-14.5); Segmented Neutrophils % 70.2 %
[2016-02-28 11:51] LABS: Calcium 9.4 mg/dL (8.6-10.8); Potassium 4.7 mEq/L (3.5-4.5)
[2016-02-28] MEDS ORDERED: hydrALAZINE 25 MG TABLET PO SCH (12:06)
--- NOTE | 2016-02-28 12:09 | Physician Discharge Referral ---
Home Health/Hosp Referral Info Transfer to: Home Health Provider in Charge Post Discharge: PCP - Diagnosis (1) Acute encephalopathy Priority: Primary Status: Acute (2) Brain lesion Priority: Secondary Status: Acute (3) Diabetes mellitus Priority: Secondary Status: Chronic (4) Hypertension Priority: Secondary Status: Chronic (5) Hypertensive urgency Priority: Secondary Status: Resolved (6) Chronic kidney disease (CKD) Priority: Secondary Status: Chronic (7) Obesity Priority: Secondary Status: Chronic - Respiratory Orders Smoking Cessation: Smoking cessation has been advised. For more information, call the [place] Tobacco Quit Line at 5-537-XMZR-NOW. - Diet/Nutrition Diet/Nutrition Orders: No Added Salt (LINNEA), Cardiac - Activity Activity Orders: Ambulate - Services Needed Following services are medically necessary services: Nursing, Physical Therapy, Occupational Therapy - Transfer Medications Prescriptions: HydrALAZINE 25 mg PO Q8HR #90 tablet Home Medications: Aspirin Enteric Coated [Aspirin EC] 81 mg PO DAILY 01/15/15 [History] Ergocalciferol (VITAMIN D2) [Vitamin D2 (50,000 UNIT)] 50,000 unit PO QWEEK 08/23 [History] Atorvastatin [Lipitor] 80 mg PO HS #30 tablet 01/19/15 [Rx] Carvedilol [Coreg] 6.25 mg PO BIDWM 02/26/16 [History] Insulin Degludec [Tresiba Flextouch U-100] 20 unit SQ DAILY 02/26/16 [History] Losartan [Cozaar] 25 mg PO DAILY 02/26/16 [History] HydrALAZINE 25 mg PO Q8HR #90 tablet 02/28/16 [Rx] Allergies/Adverse Reactions: Allergies Sulfa (Sulfonamide Antibiotics) Allergy (Verified 01/15/15 16:22) Swelling of Lip/Tongue/Throat Certification: Further, I certify that my clinical findings support that this patient is homebound (i.e. absences from home require considerable and taxing effort and are for medical reasons or taoism services or infrequently or short duration when for other reasons) because: Homebound Reason: Patient requires assistance of a person or device to safely leave home Attestation: My signature below is to certify that this patient is under my care and that I, or nurse practitioner, or a physician's assistant operations manager working with me, has a face-to -face encounter with this patient.
== END 2016-02-28 13:24 | disposition home health service (06) ==
LOC: 3BNU 15:35 → EMEROO 15:35 → SUATTDRO 21:22 → 3BNU 23:10
PROVIDERS: ADMIT Internal Medicine; ATTEND Internal Medicine

== ENCOUNTER 2017-11-01 02:38 | Inpatient (IN) ==
[2017-11-01] MEDS ORDERED: 0.9 % Sodium Chloride 500 ML IVC ONE (02:50)
--- NOTE | 2017-11-01 03:01 | Emergency Department Note ---
Disposition Clinical Impression: Altered mental status Qualifiers: Altered mental status type: disorientation Qualified Code(s): R41.0 - Disorientation, unspecified Disposition: Still a Patient General Adult HPI - General Chief complaint: ED Fall Time Seen by Provider: 11/01/17 02:49 Source: patient, EMS Limitations: no limitations - History of Present Illness HPI Narrative: ED ATTESTATION NOTE: I examined this patient and my medical decision-making was reviewed with the Resident Physician/HEEL VARNISHER/PA/Student. I have personally performed a face to face evaluation on this patient & I agree with the documented findings, disposition and treatment plan as described except to the extent set forth below. Patient was seen with emergency medicine resident Mark Lara please see copy of his note for details of this encounter Briefly: 77-year-old female via EMS from private home patient is on the toilet for many hours fell off for several hours family member at [facility] to check on his mother and called EMS. was at the house however the patient refused EMS to be called at that time. She is altered and slightly sluggish in her verbal responses when she is usually awake and alert and ambulatory. Patient will get an ED workup for sepsis/UTI. Patient get IV fluids urinalysis blood work lactic acid EKG. Admission anticipated, disposition pending Pain Scale: 0 - Related Data Home Medications Medication Instructions Recorded Confirmed Aspirin Enteric Coated [Aspirin EC] 81 mg PO DAILY 01/15/15 02/26/16 Ergocalciferol (VITAMIN D2) 50,000 unit PO QWEEK 01/15/15 02/26/16 [Vitamin D2 (50,000 UNIT)] Carvedilol [Coreg] 6.25 mg PO BIDWM 02/26/16 02/26/16 Insulin Degludec [Tresiba 20 unit SQ DAILY 02/26/16 02/26/16 Flextouch U-100] Losartan [Cozaar] 25 mg PO DAILY 02/26/16 02/26/16 Previous Rx's Medication Instructions Recorded Atorvastatin [Lipitor] 80 mg PO HS #30 tablet 01/19/15 hydrALAZINE [HydrALAZINE] 25 mg PO Q8HR #90 tablet 02/28/16 Allergies Allergy/AdvReac Type Severity Reaction Status Date / Time Sulfa (Sulfonamide Allergy Swelling Verified 01/15/15 16:22 Antibiotics) of Lip/Tongue/Throat Past Medical History - Past Medical History Medical history: Reports: atrial fibrillation, diabetes, fibromyalgia, hypertension, kidney stones, renal disease Surgical history: Reports: orthopedic, other, other Psychiatric history: Reports: no psych history - Social History Smoking Status: Never smoker Smokeless Tobacco Status: No Alcohol use: Reports: none Drug use: Reports: none Physical Exam - General Limitations: no limitations General appearance: alert Course Vital Signs Temperature 98.0 F 11/01/17 02:47 Pulse Rate 99 11/01/17 02:47 Respiratory Rate 20 11/01/17 02:47 Blood Pressure 155/86 11/01/17 02:47 O2 Sat by Pulse Oximetry 92 11/01/17 02:47 Temperature 98.0 F 11/01/17 02:47 Pulse Rate 99 11/01/17 02:47 Respiratory Rate 20 11/01/17 02:47 Blood Pressure 155/86 11/01/17 02:47 O2 Sat by Pulse Oximetry 92 11/01/17 02:47 Oxygen Delivery Oxygen Delivery Room Air
--- NOTE | 2017-11-01 03:32 | Emergency Department Note ---
Disposition Clinical Impression: Altered mental status Qualifiers: Altered mental status type: disorientation Qualified Code(s): R41.0 - Disorientation, unspecified Disposition: Admitted As Inpatient Time of Disposition: 06:38 Altered Mental Status HPI - General Chief Complaint: ED Altered Mental Status Stated Complaint: Altered mental status Time Seen by Provider: 11/01/17 02:49 Source: patient, EMS Mode of arrival: EMS Limitations: no limitations Nursing Notes Reviewed: Yes Vital Signs Reviewed: Yes - History of Present Illness HPI Narrative: 77-year-old female presents to the emergency department complaining of altered mental status. Family states that approximately noon today she went to the bathroom and said that she was sitting on the toilet but did not want EMS to be called she sat there until this evening where they said that she fell they had a difficult time getting her up and she became very confused. This was witnessed fall she did not hit her head did not lose consciousness. They said she has not been acting right. She says she does have history of urinary tract infections that seems like this is what could be. She does have chronic venous stasis and does have chronic ulcers in her legs but does not want wound care to coming to the house to treat them. Patient otherwise has no chest pain no shortness of breath no abdominal pain. She does not hurt anywhere. Patient has not had any fevers. They said this is been going on since earlier today otherwise she was normal yesterday. - Related Data Home Medications Medication Instructions Recorded Confirmed Aspirin Enteric Coated [Aspirin EC] 81 mg PO DAILY 01/15/15 02/26/16 Ergocalciferol (VITAMIN D2) 50,000 unit PO QWEEK 01/15/15 02/26/16 [Vitamin D2 (50,000 UNIT)] Carvedilol [Coreg] 6.25 mg PO BIDWM 02/26/16 02/26/16 Insulin Degludec [Tresiba 20 unit SQ DAILY 02/26/16 02/26/16 Flextouch U-100] Losartan [Cozaar] 25 mg PO DAILY 02/26/16 02/26/16 Previous Rx's Medication Instructions Recorded Atorvastatin [Lipitor] 80 mg PO HS #30 tablet 01/19/15 hydrALAZINE [HydrALAZINE] 25 mg PO Q8HR #90 tablet 02/28/16 Allergies Allergy/AdvReac Type Severity Reaction Status Date / Time Sulfa (Sulfonamide Allergy Swelling Verified 01/15/15 16:22 Antibiotics) of Lip/Tongue/Throat All systems ED: reviewed and negative except as stated. Review of Systems: As Per HPI Constitutional: Reports: weakness. Denies: fever, chills, weight change Eyes: Denies: eye pain, eye discharge, vision change ENT ED: Denies: ear pain, throat pain, dental pain, hearing loss, epistaxis, congestion, dysphagia Cardiovascular: Denies: chest pain, palpitations, dyspnea on exertion, edema, syncope Respiratory: Denies: cough, dyspnea, wheezes, hemoptysis, stridor Gastrointestinal: Denies: abdominal pain, nausea, vomiting, diarrhea, constipation, hematemesis, melena, hematochezia Genitourinary: Denies: dysuria, frequency, hematuria, discharge Musculoskeletal: Denies: back pain, neck pain, arthralgia, myalgia Integumentary: Denies: rash, abrasion, lesions Neurological: Denies: headache, weakness, numbness, paresthesias, confusion, abnormal gait, vertigo Psychiatric: Denies: anxiety, depression, suicidal thoughts, homicidal thoughts , auditory hallucinations, visual hallucinations Endocrine: Denies: fatigue Hematological/Lymphatic: Denies: easy bleeding, easy bruising Allergic/Immunologic: Denies: facial swelling, urticaria Past Medical History - Past Medical History Attestation: Yes The following information was validated with the patient. Source: patient Medical history: Reports: atrial fibrillation, diabetes, fibromyalgia, hypertension, kidney stones, renal disease Surgical history: Reports: orthopedic, other, other Psychiatric history: Reports: no psych history - Social History Smoking Status: Never smoker Smokeless Tobacco Status: No Alcohol use: Reports: none Drug use: Reports: none Physical Exam - General Limitations: no limitations General appearance: alert, in no apparent distress - Head Head exam: atraumatic, normocephalic, normal inspection - Eye Eye exam: Present: normal appearance, PERRL, EOMI - ENT ENT exam: normal exam, normal oropharynx, mucous membranes moist - Neck Neck exam: Present: normal inspection, full ROM, trachea midline - Chest Chest inspection: Present: normal inspection, symmetric chest wall rise - Respiratory Respiratory exam: Present: normal lung sounds bilaterally. Absent: respiratory distress, wheezes, accessory muscle use - Cardiovascular Cardiovascular exam: Present: regular rate, irregular rhythm, normal heart sounds - Abdominal Exam Abdominal exam: Present: soft, Non-Tender, normal bowel sounds. Absent: tenderness, distention, guarding, rebound, rigidity - Extremities Exam Extremities exam: Present: normal inspection, full ROM, pedal edema (2+ bilateral pitting edema also vascular venous stasis with 2-3 ulcers on the legs bilaterally that are chronic. Not actively bleeding at this time). Absent: tenderness - Expanded Lower Extremity Exam Neurovascular/Tendon exam: Absent: motor deficit, sensory deficit, tendon deficit - Back Exam Back exam: Present: normal inspection, full ROM. Absent: tenderness - Neurological Exam Neurological exam: Present: alert, oriented X3 - Skin Skin exam: Present: warm, dry, intact, normal color Course Course Narrative: We will do a broad workup including CBC, BMP, troponin EKG chest x-ray as well as urinalysis with straight catheter we will get blood cultures [address] head. We will give patient IV fluids. Patient most likely will need admitted. Vital Signs Temperature 98.0 F 11/01/17 02:47 Pulse Rate 99 11/01/17 02:47 Respiratory Rate 20 11/01/17 02:47 Blood Pressure 155/86 11/01/17 02:47 O2 Sat by Pulse Oximetry 92 11/01/17 02:47 Temperature 98.0 F 11/01/17 02:47 Pulse Rate 99 11/01/17 05:24 Respiratory Rate 20 11/01/17 05:24 Blood Pressure 170/101 11/01/17 05:24 O2 Sat by Pulse Oximetry 95 11/01/17 05:24 Oxygen Delivery Oxygen Delivery Room Air Altered Mental Status - [facility] Narrative Medical decision making narrative: 77-year-old female presented to the emergency department with altered mental status. Did do broad workup patient did have a mild leukocytosis with a left shift. Did give patient 500 mL of fluid due to history CHF we do not want to fluid overload her. She did not have a fever she was mildly tachycardic. EKG had no acute findings. Patient's urine was not a clean catch and most likely was dirty vase her symptoms we felt treatment with Rocephin was necessary. CT of the head did show a subacute basal ganglia infarct is unknown when last known well was. Due to patient's subacute infarct as well as notes still altered mental status and possible UTI we felt admission was necessary. I spoke with the hospitalist Dr. Cooper who agreed to admit the patient to their service. Patient is admitted in stable condition. Chest X-Ray 11/01/17 02:49 IMPRESSION: Small bilateral pleural effusions with mild pulmonary edema. D/ / Sravan Beach / Sravan Beach Interpreting Provider: Sravan Beach Head CT 11/01/17 02:50 IMPRESSION: Subacute infarct in the left basal ganglia. Critical results were called by Dr. Sravan Beach to Dr. Strange on 11/01/2017 at 04:47. D/ / Sravan Beach / Sravan Beach Interpreting Provider: Sravan Beach - Medical Records Medical records reviewed: Yes I reviewed the patient's medical records. - Lab Data Lab results reviewed: Yes I reviewed the patient's lab results. Result diagrams: 11/01/17 03:35 11/01/17 03:35 Lab Results 11/01/17 11/01/17 11/01/17 Range/Units 03:35 03:35 03:35 WBC 15.2 H (4.3-11.1) K/mcL RBC 4.75 (3.82-4.97) M/mcL Hgb 13.5 (11.5-15.4) g/dL Hct 41.7 (35.3-44.9) % MCV 87.8 (83.0-100.0) fL MCH 28.4 (28.0-33.3) pg MCHC 32.4 (31.6-35.5) g/dL RDW 14.6 H (11.5-14.5) % Plt Count 266 (140-400) K/mcL MPV 12.0 (9.4-12.4) fL Immature Gran % 0.4 (0-4) % Seg Neutrophils % 87.6 % Lymphocytes % 5.5 % Monocytes % 5.8 % Eosinophils % 0.3 % Basophils % 0.4 % Neutrophils # 13.3 H (1.6-8.9) K/mcL Lymphocytes # 0.8 (0.6-4.6) K/mcL Monocytes # 0.9 (0.0-1.3) K/mcL Eosinophils # 0.1 (0.0-0.6) K/mcL Basophils # 0.1 (0.0-0.2) K/mcL PT 13.9 H (9.4-12.1) Seconds INR 1.2 APTT 28.3 (26.0-36.0) Seconds Sodium 143 (136-145) mEq/L Potassium 3.2 L (3.5-5.1) mEq/L Chloride 100 (98-107) mEq/L Carbon Dioxide 28 (23-29) mEq/L BUN 29 H (8-23) mg/dL Creatinine 1.47 H (0.60-1.20) mg/dL Est GFR ( Amer) 42 L (> 60) Est GFR (Non-Af Amer) 35 L (> 60) BUN/Creatinine Ratio 20 (6-26) Glucose 179 H (70-105) mg/dL Calculated Osmolality 306 H (280-300) Calcium 9.8 (8.6-10.3) mg/dL Total Bilirubin 1.7 H (0.3-1.0) mg/dL Direct Bilirubin 0.4 H (0.0-0.2) mg/dL Indirect Bilirubin 1.3 H (0.0-1.2) mg/dL AST 24 (13-39) Units/L ALT 19 (7-52) Units/L Alkaline Phosphatase 141 H (34-104) Units/L Ammonia (16-53) mcmol/L Creatine Kinase 297 H (30-223) Units/L Troponin I 0.06 H* (< 0.04) ng/mL Serum Total Protein 7.1 (6.4-8.9) g/dL Albumin 3.7 (3.5-5.7) g/dL Globulin 3.4 (2.4-3.5) g/dL Albumin/Globulin Ratio 1.1 (1.1-2.2) Urine Color (Yellow) Urine Clarity (Clear) Urine pH (5.0-8.0) pH Units Ur Specific [place] (1.010-1.025) Urine Protein (Neg-Trace) mg/dL Urine Glucose (UA) (Normal) mg/dL Urine Ketones (Negative) mg/dL Urine Blood (Negative) Urine Nitrite (Negative) Urine Bilirubin (Negative) Urine Urobilinogen (Normal) mg/dL Ur Leukocyte Esterase (Negative) Urine Microscopic RBC (0-3) per hpf Urine Microscopic WBC (0-3) per hpf Ur Squamous Epith Cells (None-Few) per lpf Ur Transition Epith Cell (None-Few) per hpf Urine Bacteria (None-Few) per hpf Hyaline Casts (None-Few) per lpf Ur Culture Indicated? (NO) 11/01/17 11/01/17 Range/Units 03:35 05:26 WBC (4.3-11.1) K/mcL RBC (3.82-4.97) M/mcL Hgb (11.5-15.4) g/dL Hct (35.3-44.9) % MCV (83.0-100.0) fL MCH (28.0-33.3) pg MCHC (31.6-35.5) g/dL RDW (11.5-14.5) % Plt Count (140-400) K/mcL MPV (9.4-12.4) fL Immature Gran % (0-4) % Seg Neutrophils % % Lymphocytes % % Monocytes % % Eosinophils % % Basophils % % Neutrophils # (1.6-8.9) K/mcL Lymphocytes # (0.6-4.6) K/mcL Monocytes # (0.0-1.3) K/mcL Eosinophils # (0.0-0.6) K/mcL Basophils # (0.0-0.2) K/mcL PT (9.4-12.1) Seconds INR APTT (26.0-36.0) Seconds Sodium (136-145) mEq/L Potassium (3.5-5.1) mEq/L Chloride (98-107) mEq/L Carbon Dioxide (23-29) mEq/L BUN (8-23) mg/dL Creatinine (0.60-1.20) mg/dL Est GFR ( Amer) (> 60) Est GFR (Non-Af Amer) (> 60) BUN/Creatinine Ratio (6-26) Glucose (70-105) mg/dL Calculated Osmolality (280-300) Calcium (8.6-10.3) mg/dL Total Bilirubin (0.3-1.0) mg/dL Direct Bilirubin (0.0-0.2) mg/dL Indirect Bilirubin (0.0-1.2) mg/dL AST (13-39) Units/L ALT (7-52) Units/L Alkaline Phosphatase (34-104) Units/L Ammonia 34 (16-53) mcmol/L Creatine Kinase (30-223) Units/L Troponin I (< 0.04) ng/mL Serum Total Protein (6.4-8.9) g/dL Albumin (3.5-5.7) g/dL Globulin (2.4-3.5) g/dL Albumin/Globulin Ratio (1.1-2.2) Urine Color Yellow (Yellow) Urine Clarity Cloudy A (Clear) Urine pH 5.5 (5.0-8.0) pH Units Ur Specific [place] 1.016 (1.010-1.025) Urine Protein >=300 H (Neg-Trace) mg/dL Urine Glucose (UA) Normal (Normal) mg/dL Urine Ketones Trace H (Negative) mg/dL Urine Blood Moderate H (Negative) Urine Nitrite Negative (Negative) Urine Bilirubin Small H (Negative) Urine Urobilinogen Normal (Normal) mg/dL Ur Leukocyte Esterase Negative (Negative) Urine Microscopic RBC 0-3 (0-3) per hpf Urine Microscopic WBC 5-15 H (0-3) per hpf Ur Squamous Epith Cells Many H (None-Few) per lpf Ur Transition Epith Cell Few (None-Few) per hpf Urine Bacteria None Seen (None-Few) per hpf Hyaline Casts Few (None-Few) per lpf Ur Culture Indicated? NO (NO) - Radiology Data Radiology results reviewed: Yes I reviewed the patient's radiology results. - EKG Data EKG attestation: Yes I reviewed and interpreted this EKG. EKG results narrative: EKG done at 0249 review myself and attending shows atrial fibrillation a rate of 100, QRS 94, QTc 423 with a rightward axis. There is no acute ST changes no acute T-wave changes. No heart block, heart strain, hypertrophy. No WPW/ Brugada/HOCM. EKG is unchanged when compared with old done 02/26/16 TPA Checklist - LKW: 3-4.5 hrs Add. Warnings/Precautions Patient/family understanding: The patient/family members have been counseled and understood the risk, benefit , and alternatives of treatment.
[2017-11-01 03:57] LABS: Basophils # 0.1 K/mcL (0.0-0.2); Basophils % 0.4 %; Eosinophils # 0.1 K/mcL (0.0-0.6); Eosinophils % 0.3 %; Hematocrit 41.7 % (35.3-44.9); Hemoglobin 13.5 g/dL (11.5-15.4); Immature Granulocytes % 0.4 % (0-4); Lymphocytes # 0.8 K/mcL (0.6-4.6); Lymphocytes % 5.5 %; Mean Corpuscular HGB Conc 32.4 g/dL (31.6-35.5); Mean Corpuscular Hemoglobin 28.4 pg (28.0-33.3); Mean Corpuscular Volume 87.8 fL (83.0-100.0); Monocytes # 0.9 K/mcL (0.0-1.3); Monocytes % 5.8 %; Neutrophils # 13.3 K/mcL (1.6-8.9); Platelet Count 266 K/mcL (140-400); Red Blood Count 4.75 M/mcL (3.82-4.97); Red Cell Distribution Width 14.6 % (11.5-14.5); Segmented Neutrophils % 87.6 %
[2017-11-01 04:02] LABS: INR 1.2; Prothrombin Time 13.9 Seconds (9.4-12.1)
[2017-11-01 04:04] LABS: Activated Partial Thrombo Time 28.3 Seconds (26.0-36.0)
[2017-11-01 04:21] LABS: Albumin 3.7 g/dL (3.5-5.7); Albumin/Globulin Ratio 1.1 (1.1-2.2); Bilirubin,Direct 0.4 mg/dL (0.0-0.2); Bilirubin,Indirect 1.3 mg/dL (0.0-1.2); Bilirubin,Total 1.7 mg/dL (0.3-1.0); Calcium 9.8 mg/dL (8.6-10.3); Globulin 3.4 g/dL (2.4-3.5); Potassium 3.2 mEq/L (3.5-5.1); Total Protein 7.1 g/dL (6.4-8.9)
[2017-11-01 04:27] LABS: Troponin I 0.06 ng/mL (< 0.04)
[2017-11-01] MEDS ORDERED: cefTRIAXone 1,000 MG in Water for inj. (sterile) 20 ML 10 ML IVP ONE (05:17)
[2017-11-01 05:34] LABS: Bilirubin,Urine Small (Negative); Blood,Urine Moderate (Negative); Clarity,Urine Cloudy (Clear); Color,Urine Yellow (Yellow); Glucose,Urine (UA) Normal (Normal); Ketones,Urine Trace mg/dL (Negative); Leukocyte Esterase,Urine Negative (Negative); Nitrite,Urine Negative (Negative); PH,Urine 5.5 pH Units (5.0-8.0); Protein,Urine >=300 mg/dL (Neg-Trace); Specific Gravity,Urine 1.016 (1.010-1.025); Urobilinogen,Urine Normal (Normal)
[2017-11-01 05:36] LABS: Bacteria,Urine None Seen per hpf (None-Few); RBC,Urine 0-3 per hpf (0-3); Squamous Epithelial Cell,Urine Many per lpf (None-Few)
[2017-11-01 05:44] LABS: Hyaline Casts,Urine Few per lpf (None-Few); Transitional Epi Cells,Urine Few per hpf (None-Few)
[2017-11-01] MEDS ORDERED: Naloxone 0.4 MG/ML INJ IVP PRN (09:39)
[2017-11-01] MEDS ORDERED: *HR* Dextrose 50 % in Water (Syg) 50 ML SYRINGE IVP PRN (09:42)
[2017-11-01] MEDS ORDERED: Dextrose Gel 15 GM/37.5 ML TUBE PO PRN ×2 (09:42)
[2017-11-01] MEDS ORDERED: D5% in Water 1,000 ML IVC PRN (09:42)
[2017-11-01] MEDS ORDERED: Ringers Solution, Lactated 1,000 ML IVC SCH (09:45)
[2017-11-01] MEDS: Insulin LISPRO 300 UNITS/3 ML VIAL SQ SCH ×3 (13:22→22:34)
--- NOTE | 2017-11-01 14:04 | Internal Med History&Physical ---
Date of Encounter: 11/01/17 Time of Encounter: 08:50 Internal Medicine - H&P: HPI Chief complaint: Altered mental status. Admitted From: Emergency Dept Plans for Post Hospital Care: Home History of present illness: Ms. Baugh is a 77 year old female patient with history of diabetes, hypertension, atrial fibrillation, fibromyalgia and chronic kidney disease who presented to the ER with complaints of altered mental status. She is not able to provide much history now besides saying that she was feeling tired and so came to the ER. Reviewing the ED records, patient had been increasingly confused throughout yesterday and it got progressively worse. As such they brought her to the ER. Patient has had prior. Urinary tract infections and has chronic venous stasis and chronic ulcers in her legs. At this time, patient does not recollect where she is but she notes that she is in the hospital. In the ER, she was diagnosed with UTI and was started on ceftriaxone. Past Med Surg Social Fam HX - Past Medical History Source: old records reviewed Medical history: atrial fibrillation, diabetes, fibromyalgia, hypertension, kidney stones, renal disease Psychiatric history: no psych history - Past Surgical History Surgical History: orthopedic, other, other Additional surgical history: Carpal tunnel - bilat. hands, laser eye surgery, knee surgery (right) - Social History Smoking Status: Never smoker Smokeless Tobacco Status: No Alcohol use: none Drug use: none - Family History Mother Living Status: Hx Family Cancer: Yes (Reproductive CA) Father Living Status: Hx Family Cardiac Disorders: Yes Hx Family Endocrine Disorder: Yes (Diabetes) Internal Medicine - H&P: Meds Aspirin Enteric Coated [Aspirin EC] 81 mg PO DAILY 01/15/15 [History] Losartan [Cozaar] 50 mg PO DAILY 02/26/16 [History] Atorvastatin [Lipitor] 80 mg PO HS 11/01/17 [History] Carvedilol [Coreg] 6.25 mg PO BID 11/01/17 [History] Diltiazem HCl [Diltiazem 24Hr Cd] 120 mg PO DAILY 11/01/17 [History] Ergocalciferol (VITAMIN D2) [Vitamin D2] 50,000 unit PO QWEEK 11/01/17 [History] Furosemide [Lasix] 40 mg PO DAILY 11/01/17 [History] Insulin NPH Hum/Reg Insulin Hm [Novolin 70-30 100 Unit/ml Vial] 0 units SQ TIDWM 11/01/17 [History] 3 Allergy/AdvReac Type Severity Reaction Status Date / Time Sulfa (Sulfonamide Allergy Swelling Verified 01/15/15 16:22 Antibiotics) of Lip/Tongue/Throat All Systems PM: A 10-system review of systems was performed and is negative for pertinent findings except as documented above in the HPI. - Constitutional Constitutional: malaise, weakness, no chills, no fever(s), no night sweats - EENT Eyes: no change in vision, no discharge, no pain, no photophobia Ears: no ear discharge, no ear pain, no tinnitus Nose, mouth and throat: no dysphagia, no nasal discharge, no neck pain, no sore throat - Cardiovascular Cardiovascular ROS IM: no chest pain, no diaphoresis, no dyspnea, no lightheadedness, no palpitations, no syncope - Respiratory Respiratory: no cough, no dyspnea, no wheezing, no excessive phlegm production - Gastrointestinal Gastrointestinal: no abdominal pain, no diarrhea, no hematemesis, no hematochezia, no melena, no nausea, no vomiting - Genitourinary Genitourinary: no change in urinary stream, no dysuria, no flank pain, no hematuria - Musculoskeletal Musculoskeletal ROS IM: no numbness, no tingling - Integumentary Integumentary IM: no rash, no unusual bruising - Neurological Neurological ROS: confusion - Hematologic/Lymphatic Hematologic/Lymphatic: no easy bruising - Constitutional Vitals: Temp Pulse Resp BP Pulse Ox 98.9 F 85 19 124/74 91 11/01/17 11:43 11/01/17 11:43 11/01/17 11:43 11/01/17 11:43 11/01/17 11:43 General appearance: Present: cooperative, A&O X 1, answers questions appropriately Exam: General: Patient is alert, no acute distress, oriented x 1 Head: atraumatic, normocephalic, Eye: normal appearance, PERRL, no scleral icterus, no conjunctival injection Neck: normal inspection, trachea midline, full ROM, no carotid bruits Chest: normal inspection, symmetric chest rise Respiratory: Decreased breath sounds at both bases. Normal breath sounds. No wheezing or crackles. Cardiovascular: Regular rate and rhythm. s1 and s2 normal No clicks, rubs, gallops, or murmurs. Abdomen: Abdomen is soft, nontender. Bowel sounds are present Musculoskeletal: Bilateral lower extremity edema with signs of stasis dermatitis. Open wounds noted on both feet which appeared to be chronic. Skin: warm, dry, intact. Neuro: Alert oriented x 1 normal cranial nerves, no focal deficits Psych: Patient's affect is normal - Respiratory Respiratory exam: Present: CTAB. Absent: accessory muscle use, rales, rhonchi, wheezes - Cardiovascular Cardiovascular exam: Present: RRR, +S1, +S2. Absent: diastolic murmur, gallop, rubs, systolic murmur - GI/Abdominal GI/Abdominal exam: Present: normal bowel sounds, soft, no peritoneal signs. Absent: distended, tenderness - Extremities Exam Extremities exam: Present: warm, radial pulses palpable and symmetrical. Absent : calf tenderness, cyanotic, pedal edema - Neurological Exam Neurological exam: Present: CN II-XII intact, oriented X3, no focal deficits. Absent: facial droop, speech deficit Internal Med - H&P Results - Labs CBC & Chem 7: 11/01/17 03:35 11/01/17 03:35 - Impressions Impressions Chest X-Ray 11/01/17 02:49 IMPRESSION: Small bilateral pleural effusions with mild pulmonary edema. D/ / Sravan Beach / Sravan Beach Interpreting Provider: Sravan Beach Head CT 11/01/17 02:50 IMPRESSION: Subacute infarct in the left basal ganglia. Critical results were called by Dr. Sravan Beach to Dr. Strange on 11/01/2017 at 04:47. D/ / Sravan Beach / Sravan Beach Interpreting Provider: Sravan Beach - Assessment and plan (1) Stroke Current Visit: Yes Status: Suspected Assessment and plan: Patient with subacute stroke per CT involving the left basal ganglia. We will get MRI of the brain. Given her underlying history of atrial fibrillation, start IV heparin. Neuro checks per NIH scale. Consult neurology. MRI of the brain, carotid Dopplers. 2-D echocardiogram. TPA not given as timing of stroke not clearly known. Qualifiers: CVA mechanism: embolism Precerebral and cerebral artery: unspecified cerebral artery Qualified Code(s): I63.40 - Cerebral infarction due to embolism of unspecified cerebral artery (2) Atrial fibrillation Current Visit: Yes Status: Chronic Assessment and plan: Rate controlled. Not on anticoagulation at this time. Start IV heparin given that she has had a stroke. She has a CHADS2 Vasc score of 7 and HAS BLED score of 3. Will get 2-D echocardiogram. Qualifiers: Atrial fibrillation type: chronic Qualified Code(s): I48.2 - Chronic atrial fibrillation (3) Chronic kidney disease (CKD) Current Visit: Yes Status: Chronic Assessment and plan: Patient has acute kidney injury on chronic kidney disease stage II. Creatinine 1.47. We will treat with IV hydration. Monitor renal function closely. Qualifiers: Chronic kidney disease stage: stage 2 (mild) Qualified Code(s): N18.2 - Chronic kidney disease, stage 2 (mild) (4) Diabetes mellitus Current Visit: Yes Status: Chronic Assessment and plan: Will place patient on sliding scale insulin. Monitor blood sugars. Check A1c. Qualifiers: Diabetes mellitus type: type 2 Diabetes mellitus [facility] insulin use: with [facility] use Diabetes mellitus complication status: with ophthalmic complications Diabetes mellitus complication detail: with diabetic retinopathy Diabetic retinopathy severity: with unspecified retinopathy severity Diabetes mellitus macular edema: macular edema presence unspecified Laterality: unspecified laterality Qualified Code(s): E11.319 - Type 2 diabetes mellitus with unspecified diabetic retinopathy without macular edema; Z79.4 - long term care pharmacist (current) use of insulin (5) Hypertension Current Visit: Yes Status: Chronic Assessment and plan: Patient blood pressure was elevated earlier today. Will monitor blood pressure. Given subacute stroke, we will allow for permissive hypertension. Qualifiers: Hypertension type: essential hypertension Qualified Code(s): I10 - Essential (primary) hypertension (6) Elevated troponin Current Visit: Yes Status: Acute Assessment and plan: Troponin elevated at 0.06. Will trend. No chest pain. We will get it echocardiogram. - Time Spent With Patient Total time spent is greater than 50% in coordination of care (as documented) at patient's floor/unit and/or counseling patient:
[2017-11-01] MEDS ORDERED: *HR* Heparin 5,000 UNIT/ML VIAL IVP PRN ×2 (14:24)
[2017-11-01] MEDS ORDERED: *HR* Heparin 5,000 UNIT/ML VIAL IVP ONE (14:24)
[2017-11-01 15:24] LABS: Heparin anti-factor XA UFH 0.02 IU/mL (0.30-0.70); INR 1.1; Prothrombin Time 12.8 Seconds (9.4-12.1)
[2017-11-01] MEDS: Heparin 25,000 UNIT/500 ML D5W 25,000 UNIT/500 ML BAG IVC SCH (15:43)
[2017-11-02 03:56] LABS: Basophils # 0.1 K/mcL (0.0-0.2); Basophils % 0.7 %; Eosinophils # 0.3 K/mcL (0.0-0.6); Eosinophils % 2.2 %; Hematocrit 36.7 % (35.3-44.9); Immature Granulocytes % 0.4 % (0-4); Lymphocytes # 1.7 K/mcL (0.6-4.6); Lymphocytes % 15.6 %; Mean Corpuscular HGB Conc 32.4 g/dL (31.6-35.5); Mean Corpuscular Hemoglobin 28.4 pg (28.0-33.3); Mean Corpuscular Volume 87.6 fL (83.0-100.0); Mean Platelet Volume 12.5 fL (9.4-12.4); Monocytes % 8.9 %; Neutrophils # 8.1 K/mcL (1.6-8.9); Platelet Count 225 K/mcL (140-400); Red Blood Count 4.19 M/mcL (3.82-4.97); Red Cell Distribution Width 14.8 % (11.5-14.5); Segmented Neutrophils % 72.2 %
[2017-11-02 03:58] LABS: Hemoglobin 11.9 g/dL (11.5-15.4)
[2017-11-02 04:14] LABS: Calcium 8.9 mg/dL (8.6-10.3)
[2017-11-02 04:15] LABS: Chol/HDL Ratio 2.6 (0-4.9)
[2017-11-02] MEDS: Diltiazem CD (24hr) 120 MG CAPSULE PO SCH (08:23)
[2017-11-02] MEDS: cefTRIAXone 1,000 MG in Water for inj. (sterile) 20 ML 10 ML IVPB SCH (08:23)
[2017-11-02] MEDS: Aspirin Enteric Coated 81 MG Tablet PO SCH (08:23)
[2017-11-02] MEDS: Insulin LISPRO 300 UNITS/3 ML VIAL SQ SCH ×4 (08:24→23:30)
[2017-11-02 10:53] LABS: Estimated Average Glucose 223 mg/dl; Hemoglobin A1C 9.4 %
[2017-11-02] MEDS ORDERED: Perflutren Lipid Microsphere 1.3 ML in 0.9 % Sodium Chloride 8.7 ML IVP ONE (12:04)
[2017-11-02] MEDS: Heparin 25,000 UNIT/500 ML D5W 25,000 UNIT/500 ML BAG IVC SCH (13:32)
--- NOTE | 2017-11-02 13:33 | Neurology - Consult Note ---
Date of Encounter: 11/02/17 Time of Encounter: 13:33 Assessment and Plan (1) Stroke Current Visit: Yes Status: Suspected 77 year old female with history of afib not on anticoagulation presents with confusion and altered mental status and bilateral lower extremity weakness. CT head in ED was significant for a possible subacute infarct of the left basal ganglia. Patient was started on IV heparin. - MRI, MRA head/neck, carotid dopplers pending - Echo showed LVEF of 60%, bi-atrial enlargement, severe pulmonary hypertension , no PFO - Chadsvasc score = 7 - Hasbled score = 3 - PT/OT pending - CT image reviewed with Dr. Taveras, patient can be switched from IV heparin to xarelto Qualifiers: CVA mechanism: embolism Precerebral and cerebral artery: unspecified cerebral artery Qualified Code(s): I63.40 - Cerebral infarction due to embolism of unspecified cerebral artery (2) Atrial fibrillation Current Visit: Yes Status: Chronic History of afib, Chadsvasc of 7 and HASBLED of 3. Not on anticoagulation at home. Currently on IV heparin as patient has evidence of a subacute infarct in the left basal ganglia and AMS. Qualifiers: Atrial fibrillation type: chronic Qualified Code(s): I48.2 - Chronic atrial fibrillation (3) Diabetes mellitus Current Visit: Yes Status: Chronic continue sliding scale insulin. Poorly controlled, A1c 9.4 with evidence of chronic renal disease Qualifiers: Diabetes mellitus type: type 2 Diabetes mellitus detention insulin use: with terminal clerk use Diabetes mellitus complication status: with ophthalmic complications Diabetes mellitus complication detail: with diabetic retinopathy Diabetic retinopathy severity: with unspecified retinopathy severity Diabetes mellitus macular edema: macular edema presence unspecified Laterality: unspecified laterality Qualified Code(s): E11.319 - Type 2 diabetes mellitus with unspecified diabetic retinopathy without macular edema; Z79.4 - long-term (current) use of insulin (4) HLD (hyperlipidemia) Current Visit: Yes Status: Acute continue statin Qualifiers: Qualified Code(s): E78.00 - Pure hypercholesterolemia, unspecified; E78.0 - Pure hypercholesterolemia History of Present Illness Chief complaint: Altered Mental Status HPI: Ms. Baugh is a 77 year old female with a past medical history of IDDM, HTN, HLD , and afib not on anticoagulation who was admitted with altered mental status. Patient states that she had one day history of confusion and weakness. She states that on 10/31 she went to the bathroom and felt too weak to be able to stand up from the toilet. Her assisted her but she experienced a fall and was brought to the ED later that night. In the ED a CT head was performed which revealed a subacute infarct of the left basal ganglia. She was also found to have urinalysis compatible with a UTI and started on antibiotics and admitted to the hospital. On admission she also had an EKG that revealed afib and IV heparin was initiated. Her Chadsvasc score is 7 and HASBLED is 3. Patient was seen at bedside this morning and she continues to remain confused, she is oriented to self and knows that she is at a hospital in [place] but does not recall the name of the hospital. She also experiences trouble naming objects and has some trouble producing speech and recalling words at times. Past Med Surg Social Fam HX - Past Medical History Medical history: atrial fibrillation, diabetes, fibromyalgia, hypertension, kidney stones, renal disease Psychiatric history: no psych history - Past Surgical History Surgical History: orthopedic, other, other Additional surgical history: Carpal tunnel - bilat. hands, laser eye surgery, knee surgery (right) - Social History Smoking Status: Never smoker Smokeless Tobacco Status: No Alcohol use: none Drug use: none - Family History Mother Living Status: Hx Family Cancer: Yes (Reproductive CA) Father Living Status: Hx Family Cardiac Disorders: Yes Hx Family Endocrine Disorder: Yes (Diabetes) Medications and Allergies Aspirin Enteric Coated [Aspirin EC] 81 mg PO DAILY 01/15/15 [History] Losartan [Cozaar] 50 mg PO DAILY 02/26/16 [History] Atorvastatin [Lipitor] 80 mg PO HS 11/01/17 [History] Carvedilol [Coreg] 6.25 mg PO BID 11/01/17 [History] Diltiazem HCl [Diltiazem 24Hr Cd] 120 mg PO DAILY 11/01/17 [History] Ergocalciferol (VITAMIN D2) [Vitamin D2] 50,000 unit PO QWEEK 11/01/17 [History] Furosemide [Lasix] 40 mg PO DAILY 11/01/17 [History] Insulin NPH Hum/Reg Insulin Hm [Novolin 70-30 100 Unit/ml Vial] 0 units SQ TIDWM 11/01/17 [History] 3 Allergy/AdvReac Type Severity Reaction Status Date / Time Sulfa (Sulfonamide Allergy Swelling Verified 01/15/15 16:22 Antibiotics) of Lip/Tongue/Throat All Systems: The remainder of the systems were reviewed and are negative - Constitutional Constitutional ROS IM: weakness - Nose, Mouth, Throat Nose, mouth and throat: no abnormal hearing, no headache(s) - Cardiovascular Cardiovascular ROS IM: no chest pain, no dyspnea - Respiratory Respiratory IM: no dyspnea - Gastrointestinal Gastrointestinal: no abdominal pain - Musculoskeletal Musculoskeletal ROS IM: no muscle weakness - Integumentary Integumentary IM: wounds (lower extremities) - Neurological Neurological ROS: confusion - Endocrine Endocrine IM: no palpitations - Hematologic/Lymphatic Hematologic/Lymphatic pediatric: no easy bruising - Allergic/Immunologic Allergic/Immunologic ROS PM: no wheezing Physical Examination - Vital Signs Vital Signs: Initial Vital Signs Temp Pulse Resp BP Pulse Ox 98.0 F 99 20 155/86 92 11/01/17 02:47 11/01/17 02:47 11/01/17 02:47 11/01/17 02:47 11/01/17 02:47 - Exam Exam: General: awake, alert and oriented x2. confused and loses train of thought often. has trouble remembering certain words HEENT: EOMI, PERRLA, mild right facial droop, tongue midline, palate rises. Neck: No carotid bruits appreciated Heart: irregular rhythm, no murmurs Lungs: clear to auscultation bilaterally Abdomen: soft, nontender, positive bowel sounds : cueto in place draining dark urine with sediment present in cueto bag Musculoskeletal: bilateral lower extremity edema with bandaged wounds Psych: normal affect and mood Neuro: Mild right facial droop present, otherwise CN II-XII are intact. sensation intact to light touch in upper extremities. Agricultural Equipment Mechanic strength and upper extremity strength is 5/5 on the left, mild RUE extremity weakness with strength of 4/5. No evidence of dysdiadochokinesia as rapid alternating hand movements are intact. pronator drift present on right side. Biceps and tricep reflexes are 2+ bilaterally. Sensation intact to light touch in lower extremities bilaterally. Plantar flexion and dorsiflexion is symmetrical bilaterally. Unable to raise legs off bed bilaterally secondary to weakness. patellar reflex symmetrical and 2+ bilaterally. Unable to assess for heel to auguste movements as patient could not lift legs. Results - Laboratory Findings CBC and BMP: 11/02/17 03:28 11/02/17 03:28 Abnormal lab findings: Abnormal lab results WBC 11.2 K/mcL (4.3-11.1) H 11/02/17 03:28 RDW 14.8 % (11.5-14.5) H 11/02/17 03:28 MPV 12.5 fL (9.4-12.4) H 11/02/17 03:28 PT 12.8 Seconds (9.4-12.1) H 11/01/17 14:44 Potassium 3.0 mEq/L (3.5-5.1) L 11/02/17 03:28 Carbon Dioxide 30 mEq/L (23-29) H 11/02/17 03:28 BUN 31 mg/dL (8-23) H 11/02/17 03:28 Est GFR ( Amer) 53 (> 60) L 11/02/17 03:28 Est GFR (Non-Af Amer) 44 (> 60) L 11/02/17 03:28 Glucose 173 mg/dL (70-105) H 11/02/17 03:28 POC Glucose 171 mg/dL (70-99) H 11/01/17 16:05 Hemoglobin A1c 9.4 % (-5.6) H 11/02/17 03:28 Calculated Osmolality 305 (280-300) H 11/02/17 03:28 Total Bilirubin 1.7 mg/dL (0.3-1.0) H 11/01/17 03:35 Direct Bilirubin 0.4 mg/dL (0.0-0.2) H 11/01/17 03:35 Indirect Bilirubin 1.3 mg/dL (0.0-1.2) H 11/01/17 03:35 Alkaline Phosphatase 141 Units/L (34-104) H 11/01/17 03:35 Creatine Kinase 297 Units/L (30-223) H 11/01/17 03:35 Troponin I 0.04 ng/mL (< 0.04) H* 11/01/17 21:18 HDL Cholesterol 34 mg/dL (40-59) L 11/02/17 03:28 Urine Clarity Cloudy (Clear) A 11/01/17 05:26 Urine Protein >=300 mg/dL (Neg-Trace) H 11/01/17 05:26 Urine Ketones Trace mg/dL (Negative) H 11/01/17 05:26 Urine Blood Moderate (Negative) H 11/01/17 05:26 Urine Bilirubin Small (Negative) H 11/01/17 05:26 Urine Microscopic WBC 5-15 per hpf (0-3) H 11/01/17 05:26 Ur Squamous Epith Cells Many per lpf (None-Few) H 11/01/17 05:26 Consult Discharge Plan - Plan Referrals: Fabio Mckenzie MD [Primary Care Provider] -
--- NOTE | 2017-11-02 14:40 | Internal Med Progress Note ---
Hospitalist Progress Note - Encounter Date of Encounter: 11/02/17 Time of Encounter: 11:15 - Subjective Interval History: Patient is awake and alert. She remains disoriented but does answer some questions. She does have some word finding difficulty. No fever or chills reported overnight. She denies any chest pain or abdominal pain. She complains of left lower extremity weakness. - Exam Vitals: Temp Pulse Resp BP Pulse Ox 98.8 F 85 17 135/76 92 11/02/17 11:23 11/02/17 11:23 11/02/17 11:23 11/02/17 11:11/02/17 11:23 Exam: General: Patient is alert, no acute distress, oriented x 1 Respiratory: Good respiratory effort. Normal breath sounds. No wheezing or crackles. Cardiovascular: Regular rate and rhythm. s1 and s2 normal systolic murmur. Abdomen: Abdomen is soft, nontender. Bowel sounds are present Musculoskeletal: Bilateral lower extremity edema with stasis dermatitis and open wounds. Skin: warm, dry, intact. Neuro: Alert oriented x 1 normal cranial nerves, does have decreased strength in both lower extremities but left greater than right. - Assessment and Plan (1) Stroke Current Visit: Yes Status: Suspected Assessment and Plan: Awaiting MRI and MRA. Neurology consult in progress. Patient is on IV heparin due to underlying atrial fibrillation. She is also on aspirin and statin. Would recommend chronic long-term anticoagulation due to her CHADSVASc score of 7. High risk for complications. (2) Atrial fibrillation Current Visit: Yes Status: Chronic Assessment and Plan: Rate controlled at this time. (3) Chronic kidney disease (CKD) Current Visit: Yes Status: Chronic Assessment and Plan: Creatinine 1.2 today. Much improved. Continue to hold Lasix. We will resume losartan. (4) Diabetes mellitus Current Visit: Yes Status: Chronic Assessment and Plan: Patient has A1c of 9.4%. Poorly-controlled outpatient. Blood sugars ranging between 150 and 170 (5) Hypertension Current Visit: Yes Status: Chronic Assessment and Plan: Blood pressure elevated this morning. Resume losartan. (6) Elevated troponin Current Visit: Yes Status: Acute Assessment and Plan: Adynamic. No further workup indicated at this time. (7) Obesity Current Visit: Yes Status: Chronic - Time Spent with Patient Total time spent is greater than 50% in coordination of care (as documented) at patient's floor/unit and/or counseling patient: Internal Medicine: Result - Labs CBC & Chem 7: 11/02/17 03:28 11/02/17 03:28 Labs: Short CBC 11/02/17 Range/Units 03:28 WBC 11.2 H (4.3-11.1) K/mcL Hgb 11.9 D (11.5-15.4) g/dL Hct 36.7 (35.3-44.9) % Plt Count 225 (140-400) K/mcL Neutrophils # 8.1 (1.6-8.9) K/mcL BMP 11/02/17 03:28 Sodium 142 Potassium 3.0 L Chloride 103 Carbon Dioxide 30 H BUN 31 H Creatinine 1.20 Glucose 173 H Calcium 8.9 Cardiac Enzymes 11/01/17 Range/Units 21:18 Troponin I 0.04 H* (< 0.04) ng/mL - ABG Interpretation ABG results: PT/INR, D-dimer PT 12.8 Seconds (9.4-12.1) H 11/01/17 14:44 Consult Discharge Plan - Plan Referrals: Fabio Mckenzie MD [Primary Care Provider] - (1) Stroke Qualifiers: CVA mechanism: embolism Precerebral and cerebral artery: unspecified cerebral artery Qualified Code(s): I63.40 - Cerebral infarction due to embolism of unspecified cerebral artery (2) Atrial fibrillation Qualifiers: Atrial fibrillation type: chronic Qualified Code(s): I48.2 - Chronic atrial fibrillation (3) Chronic kidney disease (CKD) Qualifiers: Chronic kidney disease stage: stage 2 (mild) Qualified Code(s): N18.2 - Chronic kidney disease, stage 2 (mild) (4) Diabetes mellitus Qualifiers: Diabetes mellitus type: type 2 Diabetes mellitus remote computer terminal operator insulin use: with remote computer terminal operator use Diabetes mellitus complication status: with ophthalmic complications Diabetes mellitus complication detail: with diabetic retinopathy Diabetic retinopathy severity: with unspecified retinopathy severity Diabetes mellitus macular edema: macular edema presence unspecified Laterality : unspecified laterality Qualified Code(s): E11.319 - Type 2 diabetes mellitus with unspecified diabetic retinopathy without macular edema; Z79.4 - halfway ( current) use of insulin (5) Hypertension Qualifiers: Hypertension type: essential hypertension Qualified Code(s): I10 - Essential (primary) hypertension (7) Obesity Qualifiers: Obesity type: unspecified obesity type
--- NOTE | 2017-11-02 17:26 | Electrocardiograph Report ---
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
[2017-11-02] MEDS: Acetaminophen 325 MG TABLET PO PRN (21:34)
[2017-11-03] MEDS: Ipratropium/Albuterol Neb 3 ML IH PRN ×2 (02:17→13:11)
--- NOTE | 2017-11-03 07:26 | Internal Med Progress Note ---
<Joao Lozano - Last Filed: 11/03/17 14:27> Hospitalist Progress Note - Encounter Date of Encounter: 11/03/17 Time of Encounter: 13:10 - Subjective Interval History: Ms. Baugh is a 77F with PMH of afib, DM2, HTN, CKD, and fibromyalgia. She originally presented to the ED on 11/01 for confusion, altered mental status, and fatigue. Chest x-ray in the ED revealed small bilateral pleural effusions with mild pulmonary edema. Head CT in ER revealed subacute infarct in the left basal ganglia. Neurology was consulted and determined there was no contraindication for anticoagulation. 11/03: Patient seen and examined at bedside. Patient appears uncomfortable. She is still experiencing some speech difficulty. She is able to verbalize that she is mildly short of breath. Denies any headache, chest pain, abdominal pain, nausea, vomiting, numbness, or tingling. - Exam Vitals: Temp Pulse Resp BP Pulse Ox 97.4 F L 84 18 157/81 98 11/03/17 07:11 11/03/17 07:11 11/03/17 07:11 11/03/17 07:11 11/03/17 07:11 Exam: Constitutional: Well-nourished, well-developed female. No acute distress. Appears mildly uncomfortable. Head: Normocephalic, atraumatic Eyes: PERRL, EOMI, conjunctiva pink, sclera anicteric Neck: Supple, trachea midline, no lymphadenopathy Lungs: Clear to auscultation bilaterally. Nonlabored breathing. No wheezes, rales, or rhonchi noted. Cardiac: Irregularly irregular rhythm No murmurs, clicks, or rubs appreciated. GI: Abdomen soft, nontender, mildly distended. Normoactive bowel sounds Extremities: Warm, radial pulses palpable and symmetrical. Chronic venous stasis wounds with some serosanguineous seepage in bilateral lower extremities. Neuro: Alert and oriented 2 (person and place). Marginally slurred speech, but pt appears to have difficulty speaking. Skin: Warm, dry, and intact. - Assessment and Plan (1) Stroke Current Visit: Yes Status: Suspected Assessment and Plan: CT on admission showed left anterior basal ganglia infarct Planned for MRI of this morning, however there are difficulties due to both the patient being on a heparin drip and patient anxiety. We will resume home Xarelto and stop Heparin drip. Continue aspirin and Lipitor Speech eval for continued dysphagia Obtain MRI tomorrow (2) Atrial fibrillation Current Visit: Yes Status: Chronic Assessment and Plan: Rate controlled at this time CHADS-VASC score of 7 HAS-BLED score of 3 Resume home Xarelto this evening (3) Diabetes mellitus Current Visit: Yes Status: Chronic Assessment and Plan: HbA1c 9.4 - Poorly-controlled outpatient high dose SSI (4) Chronic kidney disease (CKD) Current Visit: Yes Status: Chronic Assessment and Plan: Cr 1.11 today which appears to be around pt baseline from previous visits eGFR (non-) - 48 which is pt baseline Stage 3 CKD (5) Hypertension Current Visit: Yes Status: Chronic Assessment and Plan: Stable at 157/81 with recent CVA Continue home Losartan and carvedilol (6) Obesity Current Visit: Yes Status: Chronic Assessment and Plan: Chronic issue (7) Pleural effusion Current Visit: Yes Status: Acute Assessment and Plan: CXR on admission revealed bilateral pleural effusions with pulmonary edema Pt states she is short of breath non-labored and non-tachypnic breathing on 2lpm O2 with SpO2 95% on Lasix 40mg qd at home, was being held for MORIAH on CKD MORIAH has resolved IV Lasix 40mg BID and continue to follow DVT Prophylaxis: On heparin drip to transition to Xarelto this evening - Time Spent with Patient Total time spent is greater than 50% in coordination of care (as documented) at patient's floor/unit and/or counseling patient: Internal Medicine: Result - Labs CBC & Chem 7: 11/03/17 07:47 11/03/17 07:47 - ABG Interpretation ABG results: PT/INR, D-dimer PT 12.8 Seconds (9.4-12.1) H 11/01/17 14:44 - Impressions Impressions Pelvis X-Ray 11/02/17 09:42 IMPRESSION: No acute abnormality detected. D/ / Reginaldo Parisi MD / Reginaldo Parisi MD Interpreting Provider: Reginaldo Parisi MD Consult Discharge Plan - Plan Referrals: Fabio Mckenzie MD [Primary Care Provider] - <Peewee Gottlieb - Last Filed: 11/03/17 16:27> Hospitalist Progress Note - Encounter Date of Encounter: 11/03/17 - Exam Vitals: Temp Pulse Resp BP Pulse Ox 98.3 F 66 17 134/80 95 11/03/17 15:33 11/03/17 15:33 11/03/17 15:33 11/03/17 15:33 11/03/17 15:33 - Assessment and Plan (1) Diabetes mellitus Current Visit: Yes Status: Chronic (2) Chronic kidney disease (CKD) Current Visit: Yes Status: Chronic (3) Hypertension Current Visit: Yes Status: Chronic (4) Obesity Current Visit: Yes Status: Chronic (5) Stroke Current Visit: Yes Status: Suspected (6) Atrial fibrillation Current Visit: Yes Status: Chronic (7) Pleural effusion Current Visit: Yes Status: Acute - Time Spent with Patient Total time spent is greater than 50% in coordination of care (as documented) at patient's floor/unit and/or counseling patient: Internal Medicine: Result - Labs CBC & Chem 7: 11/03/17 07:47 11/03/17 07:47 Labs: Short CBC 11/03/17 Range/Units 07:47 WBC 9.7 (4.3-11.1) K/mcL Hgb 11.4 L (11.5-15.4) g/dL Hct 36.2 (35.3-44.9) % Plt Count 216 (140-400) K/mcL Neutrophils # 6.8 (1.6-8.9) K/mcL BMP 11/03/17 07:47 Sodium 142 Potassium 3.2 L Chloride 103 Carbon Dioxide 30 H BUN 26 H Creatinine 1.11 Glucose 191 H Calcium 9.0 - ABG Interpretation ABG results: PT/INR, D-dimer PT 12.8 Seconds (9.4-12.1) H 11/01/17 14:44 - Impressions Impressions Pelvis X-Ray 11/02/17 09:42 IMPRESSION: No acute abnormality detected. D/ / Reginaldo Parisi MD / Reginaldo Parisi MD Interpreting Provider: Reginaldo Parisi MD - Attending Attestation I performed an independent interview and exam of this pt. I agree with the findings, assessment, and plan of Dr. Lozano, internal medicine bakery pastry internship. Neurology input is appreciated. Patient continues on secondary stroke prevention measures. She continues on aspirin and statin. On exam, patient appears to have acute on chronic diastolic CHF. She also has a history of severe pulmonary hypertension, and I suspect she has underlying sleep apnea with mild CO2 retention chronically (chrinic hypercarbic resp failure). Cotinue with iV Lasix. echo reviewed, EF nml but did show sevre pulm HTN. Exam: Exp aphasia NAD Lung - dimin bases Ht IRR abd NT Ext pitting edema <Joao Lozano - Last Filed: 11/03/17 14:27> (1) Stroke Qualifiers: CVA mechanism: embolism Precerebral and cerebral artery: unspecified cerebral artery Qualified Code(s): I63.40 - Cerebral infarction due to embolism of unspecified cerebral artery (2) Atrial fibrillation Qualifiers: Atrial fibrillation type: chronic Qualified Code(s): I48.2 - Chronic atrial fibrillation (3) Diabetes mellitus Qualifiers: Diabetes mellitus type: type 2 Diabetes mellitus group home insulin use: with group home use Diabetes mellitus complication status: with ophthalmic complications Diabetes mellitus complication detail: with diabetic retinopathy Diabetic retinopathy severity: with unspecified retinopathy severity Diabetes mellitus macular edema: macular edema presence unspecified Laterality : unspecified laterality Qualified Code(s): E11.319 - Type 2 diabetes mellitus with unspecified diabetic retinopathy without macular edema; Z79.4 - truck terminal manager ( current) use of insulin (4) Chronic kidney disease (CKD) Qualifiers: Chronic kidney disease stage: stage 2 (mild) Qualified Code(s): N18.2 - Chronic kidney disease, stage 2 (mild) (5) Hypertension Qualifiers: Hypertension type: essential hypertension Qualified Code(s): I10 - Essential (primary) hypertension (6) Obesity Qualifiers: Obesity type: unspecified obesity type <GottliebPeewee - Last Filed: 11/03/17 16:27> (1) Diabetes mellitus Qualifiers: Diabetes mellitus type: type 2 Diabetes mellitus truck terminal manager insulin use: with truck terminal manager use Diabetes mellitus complication status: with ophthalmic complications Diabetes mellitus complication detail: with diabetic retinopathy Diabetic retinopathy severity: with unspecified retinopathy severity Diabetes mellitus macular edema: macular edema presence unspecified Laterality : unspecified laterality Qualified Code(s): E11.319 - Type 2 diabetes mellitus with unspecified diabetic retinopathy without macular edema; Z79.4 - truck terminal manager ( current) use of insulin (2) Chronic kidney disease (CKD) Qualifiers: Chronic kidney disease stage: stage 2 (mild) Qualified Code(s): N18.2 - Chronic kidney disease, stage 2 (mild) (3) Hypertension Qualifiers: Hypertension type: essential hypertension Qualified Code(s): I10 - Essential (primary) hypertension (4) Obesity Qualifiers: Obesity type: unspecified obesity type (5) Stroke Qualifiers: CVA mechanism: embolism Precerebral and cerebral artery: unspecified cerebral artery Qualified Code(s): I63.40 - Cerebral infarction due to embolism of unspecified cerebral artery (6) Atrial fibrillation Qualifiers: Atrial fibrillation type: chronic Qualified Code(s): I48.2 - Chronic atrial fibrillation
[2017-11-03] MEDS: Insulin LISPRO 300 UNITS/3 ML VIAL SQ SCH ×4 (08:09→21:07)
[2017-11-03] MEDS: Diltiazem CD (24hr) 120 MG CAPSULE PO SCH (08:10)
[2017-11-03] MEDS: Aspirin Enteric Coated 81 MG Tablet PO SCH (08:10)
[2017-11-03] MEDS: cefTRIAXone 1,000 MG in Water for inj. (sterile) 20 ML 10 ML IVPB SCH (08:10)
[2017-11-03 08:35] LABS: Basophils # 0.1 K/mcL (0.0-0.2); Basophils % 0.7 %; Eosinophils # 0.5 K/mcL (0.0-0.6); Hematocrit 36.2 % (35.3-44.9); Hemoglobin 11.4 g/dL (11.5-15.4); Immature Granulocytes % 0.4 % (0-4); Lymphocytes # 1.4 K/mcL (0.6-4.6); Lymphocytes % 14.4 %; Mean Corpuscular HGB Conc 31.5 g/dL (31.6-35.5); Mean Corpuscular Hemoglobin 27.7 pg (28.0-33.3); Mean Corpuscular Volume 88.1 fL (83.0-100.0); Mean Platelet Volume 12.2 fL (9.4-12.4); Monocytes # 0.9 K/mcL (0.0-1.3); Monocytes % 9.1 %; Neutrophils # 6.8 K/mcL (1.6-8.9); Platelet Count 216 K/mcL (140-400); Red Blood Count 4.11 M/mcL (3.82-4.97); Red Cell Distribution Width 14.9 % (11.5-14.5); Segmented Neutrophils % 70.4 %
[2017-11-03 08:53] LABS: Potassium 3.2 mEq/L (3.5-5.1)
[2017-11-03] MEDS ORDERED: Furosemide 40 MG/4 ML VIAL IVP SCH (11:45)
[2017-11-03] MEDS: Furosemide 40 MG/4 ML VIAL IVP SCH ×2 (12:59→16:44)
[2017-11-03] MEDS: Heparin 25,000 UNIT/500 ML D5W 25,000 UNIT/500 ML BAG IVC SCH (14:48)
--- NOTE | 2017-11-03 15:56 | Neurology Progress Note ---
Date of Encounter: 11/03/17 Time of Encounter: 15:54 Assessment and Plan (1) Stroke Current Visit: Yes Status: Suspected 77 year old woman with multiple risk factors for CVA, especially chronic atrial fibrillation who developed left basal ganglia infarct at the anterior portion of putamen which may cause her dysphasia and confusion, very mild right facial and arm weakness. This is expected to improve in the next few days. She is already on Xarelto and aspirin and currently reports no headaches. Await MRI of brain and MRA of neck and head. Echocardiography completed and showed normal LVEF, no PFO but bilateral atrial enlargement. Agree with xarelto and aspirin. Watch clinically closely for symptoms of cerebral bleed If mental status change or if headaches occur repeat CT of head is to be ordered promptly. Please continue medical and supportive care Qualifiers: CVA mechanism: embolism Precerebral and cerebral artery: unspecified cerebral artery Qualified Code(s): I63.40 - Cerebral infarction due to embolism of unspecified cerebral artery Subjective Principal diagnosis: CVA Interval history: Patient seen and examined. She is stable in terms of her neurological status, still has intermittent confused and disorientation. Denies headaches. Is already on Xarelto and Aspirin. Still has dysphasia, is comprehensive and follows simple commands Echocardiography completed. Please refer to report for details. MRI of brain, MRA of brain and neck not completed yet Objective - Constitutional Vitals: Temp Pulse Resp BP Pulse Ox 98.3 F 66 17 134/80 95 11/03/17 15:33 11/03/17 15:33 11/03/17 15:33 11/03/17 15:33 11/03/17 15:33 - Neurological Exam Sensorimotor examination: Present: intact Motor Examination: Present: grossly full strength in all extremities Motor examination - right side: 5/5: deltoids, biceps, triceps, wrist flexion, wrist extension, head of store operations, hip flexors, tibialis Anterior, quadriceps, toe extension (EHL), plantarflexion Motor examination - left side: 5/5: deltoids, biceps, triceps, wrist flexion, wrist extension, hip flexors, head of store operations, quadriceps, tibialis Anterior, toe extension (EHL), plantarflexion Sensation intact: Present: intact Posture: Present: other (None) Reflex and gait examination: other (Gait not assessed) Reflexes: Biceps: 1+, Triceps: 1+, Brachioradialis: 1+, Patella: 1+, Achilles: 1 + Mental Status Examination: Present: awake, alert, oriented to person, oriented to place, follows commands appropriately, makes eye contact, follows simple commands, expressive aphasia Results - Laboratory Findings CBC and BMP: 11/03/17 07:47 11/03/17 07:47 Abnormal lab findings: Abnormal lab results Hgb 11.4 g/dL (11.5-15.4) L 11/03/17 07:47 MCH 27.7 pg (28.0-33.3) L 11/03/17 07:47 MCHC 31.5 g/dL (31.6-35.5) L 11/03/17 07:47 RDW 14.9 % (11.5-14.5) H 11/03/17 07:47 PT 12.8 Seconds (9.4-12.1) H 11/01/17 14:44 Potassium 3.2 mEq/L (3.5-5.1) L 11/03/17 07:47 Carbon Dioxide 30 mEq/L (23-29) H 11/03/17 07:47 BUN 26 mg/dL (8-23) H 11/03/17 07:47 Est GFR ( Amer) 58 (> 60) L 11/03/17 07:47 Est GFR (Non-Af Amer) 48 (> 60) L 11/03/17 07:47 Glucose 191 mg/dL (70-105) H 11/03/17 07:47 POC Glucose 181 mg/dL (70-99) H 11/03/17 11:09 Hemoglobin A1c 9.4 % (-5.6) H 11/02/17 03:28 Calculated Osmolality 304 (280-300) H 11/03/17 07:47 Total Bilirubin 1.7 mg/dL (0.3-1.0) H 11/01/17 03:35 Direct Bilirubin 0.4 mg/dL (0.0-0.2) H 11/01/17 03:35 Indirect Bilirubin 1.3 mg/dL (0.0-1.2) H 11/01/17 03:35 Alkaline Phosphatase 141 Units/L (34-104) H 11/01/17 03:35 Creatine Kinase 297 Units/L (30-223) H 11/01/17 03:35 Troponin I 0.04 ng/mL (< 0.04) H* 11/01/17 21:18 HDL Cholesterol 34 mg/dL (40-59) L 11/02/17 03:28 Urine Clarity Cloudy (Clear) A 11/01/17 05:26 Urine Protein >=300 mg/dL (Neg-Trace) H 11/01/17 05:26 Urine Ketones Trace mg/dL (Negative) H 11/01/17 05:26 Urine Blood Moderate (Negative) H 11/01/17 05:26 Urine Bilirubin Small (Negative) H 11/01/17 05:26 Urine Microscopic WBC 5-15 per hpf (0-3) H 11/01/17 05:26 Ur Squamous Epith Cells Many per lpf (None-Few) H 11/01/17 05:26 Consult Discharge Plan - Plan Referrals: Fabio Mckenzie MD [Primary Care Provider] -
[2017-11-03] MEDS: *HR* Rivaroxaban 10 MG TABLET PO SCH (16:44)
[2017-11-03] MEDS: Miconazole 2% ointment 114 GM TUBE TP SCH (16:47)
[2017-11-03] MEDS: Acetaminophen 325 MG TABLET PO PRN (21:06)
[2017-11-03] MEDS: Sennosides/Docusate Sodium TABLET PO SCH (21:07)
[2017-11-04 04:37] LABS: Basophils % 0.4 %; Eosinophils # 0.4 K/mcL (0.0-0.6); Hematocrit 36.8 % (35.3-44.9); Hemoglobin 11.4 g/dL (11.5-15.4); Immature Granulocytes % 0.5 % (0-4); Lymphocytes # 1.1 K/mcL (0.6-4.6); Lymphocytes % 11.1 %; Mean Corpuscular Hemoglobin 28.1 pg (28.0-33.3); Mean Corpuscular Volume 90.9 fL (83.0-100.0); Mean Platelet Volume 12.3 fL (9.4-12.4); Monocytes # 0.9 K/mcL (0.0-1.3); Monocytes % 9.4 %; Neutrophils # 7.5 K/mcL (1.6-8.9); Platelet Count 217 K/mcL (140-400); Red Blood Count 4.05 M/mcL (3.82-4.97); Red Cell Distribution Width 14.8 % (11.5-14.5); Segmented Neutrophils % 74.6 %
[2017-11-04 04:58] LABS: Calcium 8.9 mg/dL (8.6-10.3); Potassium 3.9 mEq/L (3.5-5.1)
[2017-11-04] MEDS: Ipratropium/Albuterol Neb 3 ML IH PRN ×2 (07:34→14:23)
[2017-11-04] MEDS: Diltiazem CD (24hr) 120 MG CAPSULE PO SCH (08:22)
[2017-11-04] MEDS: Aspirin Enteric Coated 81 MG Tablet PO SCH (08:22)
[2017-11-04] MEDS: Furosemide 40 MG/4 ML VIAL IVP SCH ×2 (08:22→16:55)
[2017-11-04] MEDS: Sennosides/Docusate Sodium TABLET PO SCH ×2 (08:22→20:39)
[2017-11-04] MEDS: cefTRIAXone 1,000 MG in Water for inj. (sterile) 20 ML 10 ML IVPB SCH (08:23)
[2017-11-04] MEDS: Miconazole 2% ointment 114 GM TUBE TP SCH (08:25)
[2017-11-04] MEDS: Insulin LISPRO 300 UNITS/3 ML VIAL SQ SCH ×4 (08:25→20:41)
[2017-11-04] MEDS: Acetaminophen 325 MG TABLET PO PRN (08:27)
--- NOTE | 2017-11-04 10:49 | Internal Med Progress Note ---
Hospitalist Progress Note - Encounter Date of Encounter: 11/04/17 Time of Encounter: 08:30 - Subjective Interval History: Ms. Baugh is a 77 year old female patient with history of diabetes, hypertension, atrial fibrillation, fibromyalgia and chronic kidney disease who presented to the ER with complaints of altered mental status. She is not able to provide much history now besides saying that she was feeling tired and so came to the ER. Reviewing the ED records, patient had been increasingly confused throughout yesterday and it got progressively worse. As such they brought her to the ER. Patient has had prior. Urinary tract infections and has chronic venous stasis and chronic ulcers in her legs. At this time, patient does not recollect where she is but she notes that she is in the hospital. In the ER, she was diagnosed with UTI and was started on ceftriaxone. 11/04: Patient is speaking much more clearly today. She complained of profound weakness. She denies any headache. No chest pain or shortness of breath. No nausea, vomiting, diarrhea. No fevers or chills. Still awaiting MRI and MRA. is present at bedside. Patient has had good diuresis since starting Lasix. - Exam Vitals: Temp Pulse Resp BP Pulse Ox 98.4 F 83 19 170/96 97 11/04/17 07:24 11/04/17 07:24 11/04/17 07:35 11/04/17 07:24 11/04/17 08:40 Exam: Constitutional: Well-nourished, well-developed female. No acute distress. Appears much more alert today. Head: Normocephalic, atraumatic Eyes: PERRL, EOMI, conjunctiva pink, sclera anicteric Neck: Supple, trachea midline, no lymphadenopathy Lungs: Clear to auscultation bilaterally. Nonlabored breathing. No wheezes, rales, or rhonchi noted. Cardiac: Irregularly irregular rhythm No murmurs, clicks, or rubs appreciated. GI: Abdomen soft, nontender, mildly distended. Normoactive bowel sounds Extremities: Warm, radial pulses palpable and symmetrical. Chronic venous stasis wounds with some serosanguineous seepage in bilateral lower extremities. Neuro: Alert and oriented 2 (person and place). Speech much improved today. No gross focal deficits as he does have generalized weakness, particularly in the lower extremities. Skin: Warm, dry, and intact. - Assessment and Plan (1) Stroke Current Visit: Yes Status: Suspected Assessment and Plan: CT on admission showed left anterior basal ganglia infarct Planned for MRI of this morning, however there are difficulties due to both the patient being on a heparin drip and patient anxiety. We will resume home Xarelto and stop Heparin drip. Continue aspirin and Lipitor Speech eval for continued dysphagia Obtain MRI tomorrow 11/04: Awaiting MRI. Neurology input is appreciated. Continues on Xarelto for stroke prevention given her atrial fibrillation. (2) Diabetes mellitus Current Visit: Yes Status: Chronic Assessment and Plan: HbA1c 9.4 - Poorly-controlled outpatient high dose SSI 11/04: Blood sugars remain elevated. Basal Lantus at night. (3) Chronic kidney disease (CKD) Current Visit: Yes Status: Chronic Assessment and Plan: Cr 1.11 today which appears to be around pt baseline from previous visits eGFR (non-) - 48 which is pt baseline Stage 3 CKD (4) Hypertension Current Visit: Yes Status: Chronic Assessment and Plan: Stable at 157/81 with recent CVA Continue home Losartan and carvedilol 11/04: Remains elevated. Will increase Coreg to 12.5 mg by mouth twice a day, continue FRITZ inhibitor. Monitor. (5) Obesity Current Visit: Yes Status: Chronic Assessment and Plan: Chronic issue (6) Atrial fibrillation Current Visit: Yes Status: Chronic Assessment and Plan: Rate controlled at this time CHADS-VASC score of 7 HAS-BLED score of 3 Resume home Xarelto this evening (7) Pleural effusion Current Visit: Yes Status: Acute Assessment and Plan: CXR on admission revealed bilateral pleural effusions with pulmonary edema Pt states she is short of breath non-labored and non-tachypnic breathing on 2lpm O2 with SpO2 95% on Lasix 40mg qd at home, was being held for MORIAH on CKD MORIAH has resolved IV Lasix 40mg BID and continue to follow Suspect pleural effusion is due to CHF (8) Acute on chronic diastolic (congestive) heart failure Current Visit: Yes Status: Acute Assessment and Plan: Continue Lasix 40 mg IV twice a day and closely monitor renal function. Continue beta akash, improve blood pressure control Echocardiogram reviewed. - Time Spent with Patient Total time spent is greater than 50% in coordination of care (as documented) at patient's floor/unit and/or counseling patient: 25 - 35 minutes Plan of Care Discussed with: family Internal Medicine: Result - Labs CBC & Chem 7: 11/04/17 04:03 11/04/17 04:03 Labs: Short CBC 11/04/17 Range/Units 04:03 WBC 10.0 (4.3-11.1) K/mcL Hgb 11.4 L (11.5-15.4) g/dL Hct 36.8 (35.3-44.9) % Plt Count 217 (140-400) K/mcL Neutrophils # 7.5 (1.6-8.9) K/mcL BMP 11/04/17 04:03 Sodium 144 Potassium 3.9 Chloride 104 Carbon Dioxide 32 H BUN 29 H Creatinine 1.23 H Glucose 222 H Calcium 8.9 - ABG Interpretation ABG results: PT/INR, D-dimer PT 12.8 Seconds (9.4-12.1) H 11/01/17 14:44 Consult Discharge Plan - Plan Referrals: Fabio Mckenzie MD [Primary Care Provider] - (1) Stroke Qualifiers: CVA mechanism: embolism Precerebral and cerebral artery: unspecified cerebral artery Qualified Code(s): I63.40 - Cerebral infarction due to embolism of unspecified cerebral artery (2) Diabetes mellitus Qualifiers: Diabetes mellitus type: type 2 Diabetes mellitus intermediate teacher insulin use: with intermediate teacher use Diabetes mellitus complication status: with ophthalmic complications Diabetes mellitus complication detail: with diabetic retinopathy Diabetic retinopathy severity: with unspecified retinopathy severity Diabetes mellitus macular edema: macular edema presence unspecified Laterality : unspecified laterality Qualified Code(s): E11.319 - Type 2 diabetes mellitus with unspecified diabetic retinopathy without macular edema; Z79.4 - terminal superintendent ( current) use of insulin (3) Chronic kidney disease (CKD) Qualifiers: Chronic kidney disease stage: stage 2 (mild) Qualified Code(s): N18.2 - Chronic kidney disease, stage 2 (mild) (4) Hypertension Qualifiers: Hypertension type: essential hypertension Qualified Code(s): I10 - Essential (primary) hypertension (5) Obesity Qualifiers: Obesity type: unspecified obesity type (6) Atrial fibrillation Qualifiers: Atrial fibrillation type: chronic Qualified Code(s): I48.2 - Chronic atrial fibrillation
--- NOTE | 2017-11-04 13:49 | Neurology Progress Note ---
Date of Encounter: 11/04/17 Time of Encounter: 13:47 Assessment and Plan (1) Stroke Current Visit: Yes Status: Suspected Patient developed right MCA territory infarct likely secondary to left MCA severe stenosis/occlusion. Patient also has right M1 segment severe stenosis on MRA of brain, which post significant risk of recurrent cerebral infarct. I communicated with Dr. Lio Barajas at [facility] who states that he no longer performs angioplasty and stending for intracranial atherosclerotic disease after SAMMPRIS showed superiority of conservative medical management. So will keep her on xaretol and aspirin and continue statin therapy. Patient is ready to be discharged from neurology perspective. May benefit from speech therapy. Will sign off and please call if any questions. Qualifiers: CVA mechanism: embolism Precerebral and cerebral artery: unspecified cerebral artery Qualified Code(s): I63.40 - Cerebral infarction due to embolism of unspecified cerebral artery Subjective Principal diagnosis: CVA Interval history: Patient seen and examined. She is stable and her speech and confused appear improved. She has no significant weakness. MRI of brain without contrast completed and showed acute cerebral infarct within the left MCA territory. MRA of brain and neck showed severe stenosis/occlusion at the left MCA M1 segment, as well as severe stenosis of right M1 segment. Objective - Constitutional Vitals: Temp Pulse Resp BP Pulse Ox 98.6 F 81 18 161/82 97 11/04/17 11:55 11/04/17 11:55 11/04/17 11:55 11/04/17 11:55 11/04/17 11:55 - Neurological Exam Sensorimotor examination: Present: intact Motor Examination: Present: grossly full strength in all extremities Motor examination - left side: 5/5: deltoids, biceps, triceps, wrist flexion, wrist extension, hip flexors, rivet flunky, quadriceps, tibialis Anterior, toe extension (EHL), plantarflexion Sensation intact: Present: intact Posture: Present: other (None) Reflex and gait examination: other (Gait not assessed) Mental Status Examination: Present: awake, alert, oriented to person, oriented to place, follows commands appropriately, makes eye contact, follows simple commands, expressive aphasia Results - Laboratory Findings CBC and BMP: 11/04/17 04:03 11/04/17 04:03 Abnormal lab findings: Abnormal lab results Hgb 11.4 g/dL (11.5-15.4) L 11/04/17 04:03 MCHC 31.0 g/dL (31.6-35.5) L 11/04/17 04:03 RDW 14.8 % (11.5-14.5) H 11/04/17 04:03 PT 12.8 Seconds (9.4-12.1) H 11/01/17 14:44 Heparin Anti-Xa, Unfract > 2.00 IU/mL (0.30-0.70) H* 11/04/17 04:03 Carbon Dioxide 32 mEq/L (23-29) H 11/04/17 04:03 BUN 29 mg/dL (8-23) H 11/04/17 04:03 Creatinine 1.23 mg/dL (0.60-1.20) H 11/04/17 04:03 Est GFR ( Amer) 51 (> 60) L 11/04/17 04:03 Est GFR (Non-Af Amer) 42 (> 60) L 11/04/17 04:03 Glucose 222 mg/dL (70-105) H 11/04/17 04:03 POC Glucose 232 mg/dL (70-99) H 11/03/17 20:20 Hemoglobin A1c 9.4 % (-5.6) H 11/02/17 03:28 Calculated Osmolality 311 (280-300) H 11/04/17 04:03 Total Bilirubin 1.7 mg/dL (0.3-1.0) H 11/01/17 03:35 Direct Bilirubin 0.4 mg/dL (0.0-0.2) H 11/01/17 03:35 Indirect Bilirubin 1.3 mg/dL (0.0-1.2) H 11/01/17 03:35 Alkaline Phosphatase 141 Units/L (34-104) H 11/01/17 03:35 Creatine Kinase 27 Units/L (30-223) L 11/04/17 11:09 Troponin I 0.04 ng/mL (< 0.04) H* 11/01/17 21:18 HDL Cholesterol 34 mg/dL (40-59) L 11/02/17 03:28 Urine Clarity Cloudy (Clear) A 11/01/17 05:26 Urine Protein >=300 mg/dL (Neg-Trace) H 11/01/17 05:26 Urine Ketones Trace mg/dL (Negative) H 11/01/17 05:26 Urine Blood Moderate (Negative) H 11/01/17 05:26 Urine Bilirubin Small (Negative) H 11/01/17 05:26 Urine Microscopic WBC 5-15 per hpf (0-3) H 11/01/17 05:26 Ur Squamous Epith Cells Many per lpf (None-Few) H 11/01/17 05:26 - Diagnostic Findings Additional findings: MRI OF THE BRAIN WITHOUT CONTRAST; MRA OF THE HEAD WITHOUT CONTRAST; MRA OF THE NECK WITH AND WITHOUT CONTRAST 11/04/2017 10:53 am; 11/04/2017 10:51 am; 11/04/2017 10:52 am: TECHNIQUE: Multiplanar multisequence MRI of the brain was performed without the administration of intravenous contrast.; MRA of the head was performed utilizing [id number] imaging with MIP images. No intravenous contrast was administered.; Multiplanar multisequence MRA of the neck was performed with and without the administration of intravenous contrast. Stenosis of the internal carotid arteries measured using NASCET criteria. COMPARISON: 02/26/2016. HISTORY: Acute confusion with right arm/face weakness. Initial evaluation. FINDINGS: MRI BRAIN: INTRACRANIAL STRUCTURES/VENTRICLES: Scattered areas of acute infarct are seen within the left frontal and parietal lobes within the left MCA territory. There is no significant mass effect or midline shift. Areas of T2 FLAIR hyperintensity are seen in the periventricular and subcortical white matter, which are nonspecific, but may represent chronic microvascular ischemic change. There is prominence of the ventricles and sulci due to global parenchymal volume loss. A 5 mm lesion is seen in the region of the roof of the 3rd ventricle, which is similar to the prior exam compatible with a colloid cyst. No evidence of hydrocephalus. The normal signal voids within the major intracranial vessels at the skullbase appear maintained. No acute abnormality in the sellar or suprasellar region. ORBITS: The visualized portion of the orbits demonstrate no acute abnormality. SINUSES: The visualized paranasal sinuses and mastoid air cells are well aerated. BONES/SOFT TISSUES: The bone marrow signal intensity appears normal. The soft tissues demonstrate no acute abnormality. MRA NECK: AORTIC ARCH/GREAT VESSELS: There is a normal 3 vessel arch configuration. There appears to be minimal irregularity of the proximal left subclavian artery, which is likely related to atherosclerosis. Otherwise, no focal stenosis seen of the innominate or subclavian arteries. CAROTID ARTERIES: No focal stenosis seen of the common carotid arteries. There is no convincing focal stenosis of the internal carotid arteries by NASCET criteria. VERTEBRAL ARTERIES: The vertebral arteries both arise from the subclavian arteries. No convincing focal stenosis seen of the vertebral arteries. MRA HEAD: ANTERIOR CIRCULATION: There is no convincing focal stenosis of the internal carotid arteries bilaterally. There is a severe focal stenosis involving the proximal right M1 segment. There is a short segment severe stenosis/occlusion involving the distal left M1 segment in the region of the MCA bifurcation. No focal stenosis seen of the anterior cerebral arteries. POSTERIOR CIRCULATION: There is a focal high-grade stenosis involving the proximal right P1 segment. Minimal diffuse irregularity involving the P1 and P2 segments bilaterally. No convincing focal stenosis seen of the basilar or either vertebral artery. MR/MR head/brain wo con IMPRESSION: 1. Scattered areas of acute infarction involving the left frontal and parietal lobes within the left MCA territory. No significant mass effect or midline shift. 2. Re-identified is a 5 mm lesion in the roof of the 3rd ventricle most compatible with a colloid cyst. No evidence of hydrocephalus. 3. Global parenchymal volume loss with chronic microvascular ischemic change. 4. Short segment severe stenosis/occlusion involving the distal left M1 segment in the region of the MCA bifurcation. 5. Severe focal stenosis involving the proximal right M1 segment. 6. Focal high-grade stenosis involving the proximal right P1 segment. 7. No convincing focal stenosis involving the cervical carotid or vertebral arteries. These results were sent to the [facility] ([facility] on 11/04/2017 at 11:06 am to be communicated to the referring/covering health care provider/office. D/ / Nahun aSntos MD / Nahun Santos MD Interpreting Provider: Nahun Santos MD Consult Discharge Plan - Plan Referrals: Fabio Mckenzie MD [Primary Care Provider] -
[2017-11-04] MEDS: *HR* Rivaroxaban 10 MG TABLET PO SCH (16:55)
[2017-11-04] MEDS: Insulin DETEMIR 100 UNIT/ML X5UNITS SQ SCH (17:05)
[2017-11-05 05:16] LABS: Basophils # 0.1 K/mcL (0.0-0.2); Basophils % 0.5 %; Eosinophils # 0.5 K/mcL (0.0-0.6); Eosinophils % 4.3 %; Hematocrit 38.7 % (35.3-44.9); Immature Granulocytes % 0.3 % (0-4); Lymphocytes # 1.2 K/mcL (0.6-4.6); Lymphocytes % 10.4 %; Mean Corpuscular Volume 90.4 fL (83.0-100.0); Mean Platelet Volume 12.3 fL (9.4-12.4); Monocytes % 8.7 %; Neutrophils # 8.8 K/mcL (1.6-8.9); Platelet Count 250 K/mcL (140-400); Red Blood Count 4.28 M/mcL (3.82-4.97); Segmented Neutrophils % 75.8 %
[2017-11-05 05:33] LABS: BUN/Creatinine Ratio 24 (6-26); Blood Urea Nitrogen 26 mg/dL (8-23); Calcium 9.1 mg/dL (8.6-10.3); Carbon Dioxide 36 mEq/L (23-29); Chloride 100 mEq/L (98-107); Glucose 153 mg/dL (70-105); Osmolality,Calculated 306 (280-300); Potassium 3.8 mEq/L (3.5-5.1); Sodium 144 mEq/L (136-145); eGFR For Non-African Americans 50 (> 60)
[2017-11-05] MEDS: Insulin LISPRO 300 UNITS/3 ML VIAL SQ SCH ×4 (07:43→19:53)
[2017-11-05] MEDS: Miconazole 2% ointment 114 GM TUBE TP SCH (08:19)
[2017-11-05] MEDS: Ipratropium/Albuterol Neb 3 ML IH PRN (08:21)
--- NOTE | 2017-11-05 08:22 | Internal Med Progress Note ---
<Peewee Gottlieb - Last Filed: 11/05/17 13:25> Hospitalist Progress Note - Encounter Date of Encounter: 11/05/17 - Exam Vitals: Temp Pulse Resp BP Pulse Ox 97.7 F 98 18 147/63 96 11/05/17 10:54 11/05/17 10:54 11/05/17 12:03 11/05/17 10:54 11/05/17 12:03 - Assessment and Plan (1) Stroke Current Visit: Yes Status: Suspected (2) Diabetes mellitus Current Visit: Yes Status: Chronic (3) Chronic kidney disease (CKD) Current Visit: Yes Status: Chronic (4) Hypertension Current Visit: Yes Status: Chronic (5) Obesity Current Visit: Yes Status: Chronic (6) Atrial fibrillation Current Visit: Yes Status: Chronic (7) Pleural effusion Current Visit: Yes Status: Acute (8) Acute on chronic diastolic (congestive) heart failure Current Visit: Yes Status: Acute - Time Spent with Patient Total time spent is greater than 50% in coordination of care (as documented) at patient's floor/unit and/or counseling patient: Internal Medicine: Result - Labs CBC & Chem 7: 11/05/17 04:17 11/05/17 04:17 Labs: Short CBC 11/05/17 Range/Units 04:17 WBC 11.6 H (4.3-11.1) K/mcL Hgb 12.0 (11.5-15.4) g/dL Hct 38.7 (35.3-44.9) % Plt Count 250 (140-400) K/mcL Neutrophils # 8.8 (1.6-8.9) K/mcL BMP 11/05/17 04:17 Sodium 144 Potassium 3.8 Chloride 100 Carbon Dioxide 36 H BUN 26 H Creatinine 1.07 Glucose 153 H Calcium 9.1 - ABG Interpretation ABG results: PT/INR, D-dimer PT 12.8 Seconds (9.4-12.1) H 11/01/17 14:44 Consult Discharge Plan - Plan Referrals: aFbio Mckenzie MD [Primary Care Provider] - - Attending Attestation I performed an independent interviewed and examined this patient. I agree with the findings, assessment, and plan of Dr. Lozano, internal medicine corporate legal intern. We discussed the case in detail. Patient has marked improvement in her dysphagia. She remains on anticoagulation for atrial fibrillation. Heart rate is controlled. She has diuresed well with regards to her acute on chronic diastolic CHF. She is on a beta akash. We will also continue ARB for beneficial effects after stroke. Patient is going to be changed to oral diuretic regimen and anticipate discharge tomorrow. She will need a senior living facility/rehabilitation. Exam: Gen: no acute distress, aaox3 skin wrm and dry neck supple lung - dimin bs bases ht irr abd soft ext - 2 + edema neuro; aphasia nearly resolved. nonfocal otherwise but does have generalized weakness <Joao Lzoano - Last Filed: 11/05/17 17:51> Hospitalist Progress Note - Encounter Date of Encounter: 11/05/17 Time of Encounter: 08:20 - Subjective Interval History: Ms. Baugh is a 77F with PMH of afib, DM2, HTN, CKD, and fibromyalgia. She originally presented to the ED on 11/01 for confusion, altered mental status, and fatigue. Chest x-ray in the ED revealed small bilateral pleural effusions with mild pulmonary edema. Head CT in ER revealed subacute infarct in the left basal ganglia. Neurology was consulted and determined there was no contraindication for anticoagulation. 11/05: Patient seen and examined at bedside. Patient resting comfortably in bed eating breakfast. She is still experiencing some speech difficulty and memory problems. Patient's who is in the phone states that her memory has improved with vascular bruits. She complains of short of breath and wheezing. Also states she has a mild left-sided headache. States she does not feel ready to go home yet because she is unable to walk. She does not recall any PT/OT visits, or using the walker in her room. Denies any chest pain, abdominal pain, nausea, vomiting, numbness, or tingling. - Exam Vitals: Temp Pulse Resp BP Pulse Ox 98.1 F 91 16 141/89 97 11/05/17 06:53 11/05/17 06:53 11/05/17 06:53 11/05/17 06:53 11/05/17 06:53 Exam: Constitutional: Well-nourished, well-developed female. No acute distress. Head: Normocephalic, atraumatic Eyes: PERRL, EOMI, conjunctiva pink, sclera anicteric Neck: Supple, trachea midline, no lymphadenopathy Lungs: Diffuse wheezes bilaterally. Nonlabored breathing. No rales, or rhonchi noted. Cardiac: Irregularly irregular rhythm No murmurs, clicks, or rubs appreciated. GI: Abdomen soft, nontender, mildly distended. Normoactive bowel sounds Extremities: Warm, radial pulses palpable and symmetrical. Chronic venous stasis wounds with some serosanguineous seepage in bilateral lower extremities. Neuro: Alert and oriented 2 (person and place). Speech much improved today. No gross focal deficits as she does have generalized weakness, particularly in the lower extremities. Skin: Warm, dry, and intact. - Assessment and Plan (1) Diabetes mellitus Current Visit: Yes Status: Chronic Assessment and Plan: HbA1c 9.4 - Poorly-controlled outpatient Blood glucose improved today at 153 Continue 10u Levemir at night Continue high SSI (2) Stroke Current Visit: Yes Status: Suspected Assessment and Plan: - CT on admission showed left anterior basal ganglia infarct - MRI and MRA of head and neck revealed multiple scattered areas of acute infarct in the left frontal and parietal lobes. There was also noted severe stenosis or occulsion in multiple regions of the MCA bifurcation. Details can be found in radiology report - Appreciate neurology input. Recommended conservative medical management - Continue ASA - Continue Lipitor 80mg - Continue Xarelto - Continue Carvedilol 12.5 BID Continue PT/OT for LE weakness. Spoke with social science manager today regarding SNF placement upon discharge. (3) Chronic kidney disease (CKD) Current Visit: Yes Status: Chronic Assessment and Plan: Cr 1.07 today which appears to be around pt baseline from previous visits eGFR (non-) at 50 today which is around pt baseline Stage 3 CKD (4) Hypertension Current Visit: Yes Status: Chronic Assessment and Plan: Stable at 138/60 with recent CVA Continue home Losartan 50mg Continue Carvedilol 12.5 BID (5) Obesity Current Visit: Yes Status: Chronic Assessment and Plan: Chronic issue (6) Atrial fibrillation Current Visit: Yes Status: Chronic Assessment and Plan: Rate controlled at this time CHADS-VASC score of 7 HAS-BLED score of 3 Continue Xarelto Continue po Cardizem (7) Pleural effusion Current Visit: Yes Status: Acute Assessment and Plan: CXR on admission revealed bilateral pleural effusions with pulmonary edema Pt states she is short of breath Exam revealed diffuse wheezes, but no rales Has Heide Suspect pleural effusion is due to CHF IV Lasix 40mg BID May consider repeat CXR tomorrow if respiratory status has not improved (8) Acute on chronic diastolic (congestive) heart failure Current Visit: Yes Status: Acute Assessment and Plan: Continue Lasix 40 mg IV BID as tolerated by kidney function Continue Carvedilol Echocardiogram showed LVEF 60% Urine yesterday 4250mL Cumulative I&O at -3.5L since admission DVT Prophylaxis: On Xarelto - Time Spent with Patient Total time spent is greater than 50% in coordination of care (as documented) at patient's floor/unit and/or counseling patient: Plan of Care Discussed with: patient Internal Medicine: Result - Labs CBC & Chem 7: 11/05/17 04:17 11/05/17 04:17 Labs: Short CBC 11/05/17 Range/Units 04:17 WBC 11.6 H (4.3-11.1) K/mcL Hgb 12.0 (11.5-15.4) g/dL Hct 38.7 (35.3-44.9) % Plt Count 250 (140-400) K/mcL Neutrophils # 8.8 (1.6-8.9) K/mcL BMP 11/05/17 04:17 Sodium 144 Potassium 3.8 Chloride 100 Carbon Dioxide 36 H BUN 26 H Creatinine 1.07 Glucose 153 H Calcium 9.1 - ABG Interpretation ABG results: PT/INR, D-dimer PT 12.8 Seconds (9.4-12.1) H 11/01/17 14:44 - Impressions Impressions Brain MRI 11/04/17 17:05 IMPRESSION: 1. Scattered areas of acute infarction involving the left frontal and parietal lobes within the left MCA territory. No significant mass effect or midline shift. 2. Re-identified is a 5 mm lesion in the roof of the 3rd ventricle most compatible with a colloid cyst. No evidence of hydrocephalus. 3. Global parenchymal volume loss with chronic microvascular ischemic change. 4. Short segment severe stenosis/occlusion involving the distal left M1 segment in the region of the MCA bifurcation. 5. Severe focal stenosis involving the proximal right M1 segment. 6. Focal high-grade stenosis involving the proximal right P1 segment. 7. No convincing focal stenosis involving the cervical carotid or vertebral arteries. These results were sent to the [facility] ([facility]) on 11/04/2017 at 11:06 am to be communicated to the referring/covering health care provider/office. D/ / Nahun Santos MD / Nahun Santos MD Interpreting Provider: Nahun Santos MD Head MRA 11/04/17 17:06 IMPRESSION: 1. Scattered areas of acute infarction involving the left frontal and parietal lobes within the left MCA territory. No significant mass effect or midline shift. 2. Re-identified is a 5 mm lesion in the roof of the 3rd ventricle most compatible with a colloid cyst. No evidence of hydrocephalus. 3. Global parenchymal volume loss with chronic microvascular ischemic change. 4. Short segment severe stenosis/occlusion involving the distal left M1 segment in the region of the MCA bifurcation. 5. Severe focal stenosis involving the proximal right M1 segment. 6. Focal high-grade stenosis involving the proximal right P1 segment. 7. No convincing focal stenosis involving the cervical carotid or vertebral arteries. These results were sent to the [facility] ([facility]) on 11/04/2017 at 11:06 am to be communicated to the referring/covering health care provider/office. D/ / Nahun Santos MD / Nahun Santos MD Interpreting Provider: Nahun Santos MD Neck MRA 11/04/17 17:06 IMPRESSION: 1. Scattered areas of acute infarction involving the left frontal and parietal lobes within the left MCA territory. No significant mass effect or midline shift. 2. Re-identified is a 5 mm lesion in the roof of the 3rd ventricle most compatible with a colloid cyst. No evidence of hydrocephalus. 3. Global parenchymal volume loss with chronic microvascular ischemic change. 4. Short segment severe stenosis/occlusion involving the distal left M1 segment in the region of the MCA bifurcation. 5. Severe focal stenosis involving the proximal right M1 segment. 6. Focal high-grade stenosis involving the proximal right P1 segment. 7. No convincing focal stenosis involving the cervical carotid or vertebral arteries. These results were sent to the [facility] ([facility]) on 11/04/2017 at 11:06 am to be communicated to the referring/covering health care provider/office. D/ / Nahun Santos MD / Nahun Santos MD Interpreting Provider: Nahun Santos MD <Peewee Gottlieb R - Last Filed: 11/05/17 13:25> (1) Stroke Qualifiers: CVA mechanism: embolism Precerebral and cerebral artery: unspecified cerebral artery Qualified Code(s): I63.40 - Cerebral infarction due to embolism of unspecified cerebral artery (2) Diabetes mellitus Qualifiers: Diabetes mellitus type: type 2 Diabetes mellitus direct of real estate insulin use: with detention use Diabetes mellitus complication status: with ophthalmic complications Diabetes mellitus complication detail: with diabetic retinopathy Diabetic retinopathy severity: with unspecified retinopathy severity Diabetes mellitus macular edema: macular edema presence unspecified Laterality : unspecified laterality Qualified Code(s): E11.319 - Type 2 diabetes mellitus with unspecified diabetic retinopathy without macular edema; Z79.4 - intermediate ( current) use of insulin (3) Chronic kidney disease (CKD) Qualifiers: Chronic kidney disease stage: stage 2 (mild) Qualified Code(s): N18.2 - Chronic kidney disease, stage 2 (mild) (4) Hypertension Qualifiers: Hypertension type: essential hypertension Qualified Code(s): I10 - Essential (primary) hypertension (5) Obesity Qualifiers: Obesity type: unspecified obesity type (6) Atrial fibrillation Qualifiers: Atrial fibrillation type: chronic Qualified Code(s): I48.2 - Chronic atrial fibrillation <Joao Lozano A - Last Filed: 11/05/17 17:51> (1) Diabetes mellitus Qualifiers: Diabetes mellitus type: type 2 Diabetes mellitus detention insulin use: with detention use Diabetes mellitus complication status: with ophthalmic complications Diabetes mellitus complication detail: with diabetic retinopathy Diabetic retinopathy severity: with unspecified retinopathy severity Diabetes mellitus macular edema: macular edema presence unspecified Laterality : unspecified laterality Qualified Code(s): E11.319 - Type 2 diabetes mellitus with unspecified diabetic retinopathy without macular edema; Z79.4 - intermediate ( current) use of insulin (2) Stroke Qualifiers: CVA mechanism: embolism Precerebral and cerebral artery: unspecified cerebral artery Qualified Code(s): I63.40 - Cerebral infarction due to embolism of unspecified cerebral artery (3) Chronic kidney disease (CKD) Qualifiers: Chronic kidney disease stage: stage 2 (mild) Qualified Code(s): N18.2 - Chronic kidney disease, stage 2 (mild) (4) Hypertension Qualifiers: Hypertension type: essential hypertension Qualified Code(s): I10 - Essential (primary) hypertension (5) Obesity Qualifiers: Obesity type: unspecified obesity type (6) Atrial fibrillation Qualifiers: Atrial fibrillation type: chronic Qualified Code(s): I48.2 - Chronic atrial fibrillation
[2017-11-05] MEDS: Diltiazem CD (24hr) 120 MG CAPSULE PO SCH (08:25)
[2017-11-05] MEDS: Sennosides/Docusate Sodium TABLET PO SCH ×2 (08:25→19:53)
[2017-11-05] MEDS: Aspirin Enteric Coated 81 MG Tablet PO SCH (08:26)
[2017-11-05] MEDS: Furosemide 40 MG/4 ML VIAL IVP SCH ×2 (08:26→17:19)
[2017-11-05] MEDS: Ipratropium/Albuterol Neb 3 ML IH SCH ×4 (12:01→23:38)
[2017-11-05] MEDS: Insulin DETEMIR 100 UNIT/ML X5UNITS SQ SCH (17:18)
[2017-11-05] MEDS: *HR* Rivaroxaban 10 MG TABLET PO SCH (17:18)
[2017-11-06] MEDS: Ipratropium/Albuterol Neb 3 ML IH SCH ×5 (04:10→20:22)
[2017-11-06] MEDS: Miconazole 2% ointment 114 GM TUBE TP SCH (08:46)
[2017-11-06] MEDS: Diltiazem CD (24hr) 120 MG CAPSULE PO SCH (08:49)
[2017-11-06] MEDS: Sennosides/Docusate Sodium TABLET PO SCH (08:49)
[2017-11-06] MEDS: Insulin LISPRO 300 UNITS/3 ML VIAL SQ SCH ×3 (08:50→18:27)
[2017-11-06] MEDS: Aspirin Enteric Coated 81 MG Tablet PO SCH (08:50)
[2017-11-06] MEDS: Furosemide 40 MG/4 ML VIAL IVP SCH (08:50)
[2017-11-06 09:57] LABS: Basophils # 0.1 K/mcL (0.0-0.2); Basophils % 0.7 %; Eosinophils # 0.5 K/mcL (0.0-0.6); Eosinophils % 4.3 %; Hemoglobin 12.6 g/dL (11.5-15.4); Immature Granulocytes % 0.5 % (0-4); Lymphocytes # 0.9 K/mcL (0.6-4.6); Lymphocytes % 8.1 %; Mean Corpuscular HGB Conc 30.7 g/dL (31.6-35.5); Mean Corpuscular Hemoglobin 27.9 pg (28.0-33.3); Mean Corpuscular Volume 90.7 fL (83.0-100.0); Mean Platelet Volume 11.7 fL (9.4-12.4); Monocytes # 0.8 K/mcL (0.0-1.3); Monocytes % 7.2 %; Neutrophils # 8.5 K/mcL (1.6-8.9); Platelet Count 242 K/mcL (140-400); Red Blood Count 4.52 M/mcL (3.82-4.97); Red Cell Distribution Width 14.6 % (11.5-14.5); Segmented Neutrophils % 79.2 %
[2017-11-06 10:17] LABS: Calcium 9.2 mg/dL (8.6-10.3); Potassium 3.9 mEq/L (3.5-5.1)
--- NOTE | 2017-11-06 13:31 | Internal Med Progress Note ---
<Peewee Gottlieb - Last Filed: 11/06/17 13:39> Hospitalist Progress Note - Encounter Date of Encounter: 11/06/17 - Exam Vitals: Temp Pulse Resp BP Pulse Ox 97.9 F 82 16 126/75 96 11/06/17 11:35 11/06/17 11:35 11/06/17 11:48 11/06/17 11:35 11/06/17 11:48 - Assessment and Plan (1) Diabetes mellitus Current Visit: Yes Status: Chronic (2) Chronic kidney disease (CKD) Current Visit: Yes Status: Chronic (3) Hypertension Current Visit: Yes Status: Chronic (4) Obesity Current Visit: Yes Status: Chronic (5) Stroke Current Visit: Yes Status: Suspected (6) Atrial fibrillation Current Visit: Yes Status: Chronic (7) Pleural effusion Current Visit: Yes Status: Acute (8) Acute on chronic diastolic (congestive) heart failure Current Visit: Yes Status: Acute - Time Spent with Patient Total time spent is greater than 50% in coordination of care (as documented) at patient's floor/unit and/or counseling patient: Internal Medicine: Result - Labs CBC & Chem 7: 11/06/17 09:43 11/06/17 09:43 Labs: Short CBC 11/06/17 Range/Units 09:43 WBC 10.7 (4.3-11.1) K/mcL Hgb 12.6 (11.5-15.4) g/dL Hct 41.0 (35.3-44.9) % Plt Count 242 (140-400) K/mcL Neutrophils # 8.5 (1.6-8.9) K/mcL BMP 11/06/17 09:43 Sodium 142 Potassium 3.9 Chloride 97 L Carbon Dioxide 39 H BUN 29 H Creatinine 1.22 H Glucose 204 H Calcium 9.2 - ABG Interpretation ABG results: PT/INR, D-dimer PT 12.8 Seconds (9.4-12.1) H 11/01/17 14:44 Consult Discharge Plan - Plan Referrals: Fabio Mckenzie MD [Primary Care Provider] - - Attending Attestation I performed an independent exam this patient. I agree with the findings, assessment, and plan of medical student Landen Mathur. We evaluated this patient together and discussed the case. Patient still has unexplained persistent hypoxemia. I believe she has been adequately diuresed. She is not showing any signs of pneumonia. Chest x-ray today to reassess. Patient otherwise remained hemodynamically stable. Her neurologic deficits have significantly improved. She is overall much improved clinically. She may need to be discharged on oxygen therapy. Increase her Coreg for better blood pressure control. Gen: NAD< AAOx3 Skin warm and dry Lung - dimin bs bases Ht IRR Abd - soft +BS, Ext 2+ edema Neuro: min aphasia (nearly resolved) Case dw <Landen Mathur - Last Filed: 11/06/17 15:03> Hospitalist Progress Note - Encounter Date of Encounter: 11/06/17 Time of Encounter: 09:30 - Subjective Interval History: Pt was seen and evaluated at bedside. Pt memory has improved significantly from yesterday and she is now A&Ox3. Pt reports improvement in breathing with use of breathing treatments and is currently on O2 via nasal cannula. Dysphagia has improved and pt only intermittently experiences dysphagia when swallowing some of her medications. Yesterday with PT/OT pt was unable to get out of the bed due to pain in her lower right extremity, further stay in short term rehab is recommended. Will plan to take a repeat CXR to monitor pulmonary edema. Possible discharge today as pt has been assigned to a SNF Pt has been hypertensive so plans to increase Beta Carroll dosage to 25 mg Carvedilol Transition Lasix to oral dosing. Pt will likely be discharged on oxygen - Exam Vitals: Temp Pulse Resp BP Pulse Ox 97.9 F 82 16 126/75 96 11/06/17 11:35 11/06/17 11:35 11/06/17 11:48 11/06/17 11:35 11/06/17 11:48 Exam: Skin: many ulcers present on the lower extremity Extremities: Edema most prominent in the lower extremities CV: RRR, no murmurs rubs or gallops Lungs: Wheezes heard bilaterally Neuro: CN II-XII grossly intact. No pronator drift noted. Extraocular muscles intact. - Assessment and Plan (1) Stroke Current Visit: Yes Status: Suspected Assessment and Plan: Head CT non contrast (11/01) dx subacute stroke of the left basal ganglia. tPA not given at admission since onset of stroke is unknown Neurologist cleared pt for anticoagulation therapy given hx of A fib Pt presented with mild right facial droop and arm drift. Pt is also confused and has difficulty with speech. Both of these deficits have resolved since admission. MRI brain/Neck MRA/Head MRA: scattered areas of acute infarct in the left frontal and parietal lobes in the left MCA territory. No mass effect. Scattered areas of vascular stenosis in branches of the MCA and STRUCTURAL STEEL DETAILER. Plan: Monitor pt neuro deficits Continue ASA, Lipitor, Xarelto PO, Carvedilol PT/OT therapy for LE weakness (2) Atrial fibrillation with RVR Current Visit: No Status: Acute Assessment and Plan: CHADS2 Vasc Score: 7 HAS BLED score: 3 2D Echo: LV EF 60%. Bi-atrial enlargement, mild tricuspid regurgitation, severe pulmonary hypertension, IVC dilation Plan: Continue Xarelto, Cardizem (3) Chronic kidney disease (CKD) Current Visit: Yes Status: Chronic Assessment and Plan: MORIAH with CKD Stage II SCr close to pt baseline 1.07 (1.47 on admission 11/01) Plan: Monitor SCr (4) Diabetes mellitus Current Visit: Yes Status: Chronic Assessment and Plan: Pt is on sliding scale insulin Watch blood sugars A1c was 9.4 Pt on high dose sliding scale (5) Hypertension Current Visit: No Status: Chronic Assessment and Plan: Pt presented in a hypertensive state and was originally not given any antihypertensives due to stroke presentation Currently pt bp 151/85 Plan: Losartan 50 mg Increase Carvedilol to 25 mg BID (6) Pleural effusion Current Visit: Yes Status: Acute Assessment and Plan: CXR on admission found B/L pleural effusions with pulmonary edema Pt has SOB Plan: Continue Duonebs IV Lasix 40 mg BID Repeat CXR found only slight pleural effusion on the right. Pt will likely be discharged on O2 Recommend repeat CXR following d/c to resolution (7) Elevated troponin Current Visit: Yes Status: Acute Assessment and Plan: Presented with 0.06 Pt has no complaint of CP EKG: Ventricular premature complex, Probable lateral infarct in the past (8) DVT (deep venous thrombosis) Current Visit: Yes Status: Acute Assessment and Plan: Xarelto - Time Spent with Patient Total time spent is greater than 50% in coordination of care (as documented) at patient's floor/unit and/or counseling patient: Greater than 35 minutes Plan of Care Discussed with: patient Internal Medicine: Result - Labs CBC & Chem 7: 11/06/17 09:43 11/06/17 09:43 Labs: Short CBC 11/06/17 Range/Units 09:43 WBC 10.7 (4.3-11.1) K/mcL Hgb 12.6 (11.5-15.4) g/dL Hct 41.0 (35.3-44.9) % Plt Count 242 (140-400) K/mcL Neutrophils # 8.5 (1.6-8.9) K/mcL BMP 11/06/17 09:43 Sodium 142 Potassium 3.9 Chloride 97 L Carbon Dioxide 39 H BUN 29 H Creatinine 1.22 H Glucose 204 H Calcium 9.2 - ABG Interpretation ABG results: PT/INR, D-dimer PT 12.8 Seconds (9.4-12.1) H 11/01/17 14:44 <Peewee Gottlieb - Last Filed: 11/06/17 13:39> (1) Diabetes mellitus Qualifiers: Diabetes mellitus type: type 2 Diabetes mellitus oil heaterman insulin use: with fdc use Diabetes mellitus complication status: with ophthalmic complications Diabetes mellitus complication detail: with diabetic retinopathy Diabetic retinopathy severity: with unspecified retinopathy severity Diabetes mellitus macular edema: macular edema presence unspecified Laterality : unspecified laterality Qualified Code(s): E11.319 - Type 2 diabetes mellitus with unspecified diabetic retinopathy without macular edema; Z79.4 - intermediate designer ( current) use of insulin (2) Chronic kidney disease (CKD) Qualifiers: Chronic kidney disease stage: stage 2 (mild) Qualified Code(s): N18.2 - Chronic kidney disease, stage 2 (mild) (3) Hypertension Qualifiers: Hypertension type: essential hypertension Qualified Code(s): I10 - Essential (primary) hypertension (4) Obesity Qualifiers: Obesity type: unspecified obesity type (5) Stroke Qualifiers: CVA mechanism: embolism Precerebral and cerebral artery: unspecified cerebral artery Qualified Code(s): I63.40 - Cerebral infarction due to embolism of unspecified cerebral artery (6) Atrial fibrillation Qualifiers: Atrial fibrillation type: chronic Qualified Code(s): I48.2 - Chronic atrial fibrillation <Landen Mathur - Last Filed: 11/06/17 15:03> (1) Stroke Qualifiers: CVA mechanism: embolism Precerebral and cerebral artery: unspecified cerebral artery Qualified Code(s): I63.40 - Cerebral infarction due to embolism of unspecified cerebral artery (3) Chronic kidney disease (CKD) Qualifiers: Chronic kidney disease stage: stage 2 (mild) Qualified Code(s): N18.2 - Chronic kidney disease, stage 2 (mild) (4) Diabetes mellitus Qualifiers: Diabetes mellitus type: type 2 Diabetes mellitus oil heaterman insulin use: with fdc use Diabetes mellitus complication status: with ophthalmic complications Diabetes mellitus complication detail: with diabetic retinopathy Diabetic retinopathy severity: with unspecified retinopathy severity Diabetes mellitus macular edema: macular edema presence unspecified Laterality : unspecified laterality Qualified Code(s): E11.319 - Type 2 diabetes mellitus with unspecified diabetic retinopathy without macular edema; Z79.4 - intermediate designer ( current) use of insulin (5) Hypertension Qualifiers: Hypertension type: essential hypertension Qualified Code(s): I10 - Essential (primary) hypertension
[2017-11-06 16:09] VITALS: BP 129/74
--- NOTE | 2017-11-06 16:55 | Discharge Summary ---
- NOTES TO OUTPATIENT PROVIDER Notes to Outpatient Provider: Follow up with OT/PT. F/U CXR to monitor pleural effusion Date of Encounter: 11/06/17 Time of Encounter: 16:53 - Discharge Diagnosis (1) Stroke Priority: Primary Status: Suspected Qualifiers: CVA mechanism: embolism Precerebral and cerebral artery: unspecified cerebral artery Qualified Code(s): I63.40 - Cerebral infarction due to embolism of unspecified cerebral artery (2) Atrial fibrillation with RVR Priority: Primary Status: Acute (3) Chronic kidney disease (CKD) Priority: Primary Status: Chronic Qualifiers: Chronic kidney disease stage: stage 2 (mild) Qualified Code(s): N18.2 - Chronic kidney disease, stage 2 (mild) (4) Diabetes mellitus Priority: Secondary Status: Chronic Qualifiers: Diabetes mellitus type: type 2 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: with tablet machine operator use Diabetes mellitus complication status: with ophthalmic complications Diabetes mellitus complication detail: with diabetic retinopathy Diabetic retinopathy severity: with unspecified retinopathy severity Diabetes mellitus macular edema: macular edema presence unspecified Laterality: unspecified laterality Qualified Code(s): E11.319 - Type 2 diabetes mellitus with unspecified diabetic retinopathy without macular edema; 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 Baugh is a 77 year old female 77 y/o F presents with AMS (11/01). Began previous day and progressively worsened. She had gone to the bathroom and then was too weak to get off the toilet. Pt had a mild right facial droop and arm drift. Presented also with trouble naming objects and producing speech/recalling words. tPA was not given as onset of the strokelike symptoms was unknown. Pt denied CP or abdominal pain. Pt has hx of UTI and has chronic venous stasis and chronic ulcers in her legs. PMHx also includes dx of DM, Htn, A fib, Fibromyalgia, and CKD. Pt has a family hx of reproductive ca and DM. Pt was initially suspected to have a UTI and was started on Ceftriaxone. Head CT found subacute infarct in the left basal ganglia (11/01). CXR found bilateral pleural effusions with mild pulm edema. Additionally, extensive imaging of the head and neck was done including: MRI brain, Neck MRA, and Head MRA. These studies found scattered areas of acute infarct in the left frontal and parietal lobes in the left MCA territory. Neurology was consulted and followed pt neurological deficits, all of which have resolved through hospital stay. Additionally pt was cleared for anticoagulation therapy given hx of chronic a fib. Pt was diuresed to treat chronic diastolic CHF exacerbation resulting in pleural effusions seen on CXR. Today pt reports improvement in breathing with use of breathing treatments and is currently on O2 via nasal cannula. Dysphagia has improved and pt only intermittently experiences dysphagia when swallowing some of her medications. Repeat CXR today shows improvement with the pleural effusions only slightly on the right side. Assessment and Plan: .1. Stroke Continue ASA, Lipitor, Xarelto PO, Carvedilol PT/OT therapy for LE weakness 2. A fib with RVR Continue Xarelto, Cardizem 3. Htn Losartan 50 mg Carvedilol 25 mg BID 4. Pleural Effusion Continue Duonebs Lasix 40 mg po BID Discharge pt on O2 Recommend repeat CXR following d/c to resolution of symptoms Discharge discussed with: patient - Time Spent with Patient Total time spent providing and/or coordinating discharge services: - Discharge Medications Home Medications: Aspirin Enteric Coated [Aspirin EC] 81 mg PO DAILY 01/15/15 [History] Losartan [Cozaar] 50 mg PO DAILY 02/26/16 [History] Atorvastatin [Lipitor] 80 mg PO HS 11/01/17 [History] Carvedilol [Coreg] 6.25 mg PO BID 11/01/17 [History] Diltiazem HCl [Diltiazem 24Hr Cd] 120 mg PO DAILY 11/01/17 [History] Ergocalciferol (VITAMIN D2) [Vitamin D2] 50,000 unit PO QWEEK 11/01/17 [History] Furosemide [Lasix] 40 mg PO DAILY 11/01/17 [History] Insulin NPH Hum/Reg Insulin Hm [Novolin 70-30 100 Unit/ml Vial] 0 units SQ TIDWM 11/01/17 [History] Allergies/Adverse Reactions: 3 Allergy/AdvReac Type Severity Reaction Status Date / Time Sulfa (Sulfonamide Allergy Swelling Verified 01/15/15 16:22 Antibiotics) of Lip/Tongue/Throat Date of admission: 11/01/17 19:00 Primary care physician: Fabio Mckenzie MD Consults: 11/03/17 11:24 Consult to Speech Therapy [CONS] Routine Comment: Evaluate, develop and implement POC Reason for Consult: stroke with speech difficulty Call Completed: No Consult to Wound Care [CONS] Routine Reason for Consult: excoriation to skin folds, chronic wounds to LEs Call Completed: No - Constitutional Vitals: Temp Pulse Resp BP Pulse Ox 98.3 F 81 16 129/74 96 11/06/17 16:01 11/06/17 16:01 11/06/17 16:15 11/06/17 16:01 11/06/17 16:15 General appearance: Present: cooperative, A&O X 1, answers questions appropriately Exam: Skin: many ulcers present on the lower extremity Extremities: Edema most prominent in the lower extremities CV: RRR, no murmurs rubs or gallops Lungs: Wheezes heard bilaterally Neuro: CN II-XII grossly intact. No pronator drift noted. Extraocular muscles intact. - Patient Status Disposition: Transfer SNF Condition: Fair Functional capacity at discharge: bed bound Overall status at discharge: patient is progressing back to baseline - Discharge Instructions Instructions: Atrial Fibrillation (DC), Pleural Effusion (DC), Ischemic Stroke (DC) Follow Up With: Fabio Mckenzie MD [Primary Care Provider] -
--- NOTE | 2017-11-06 18:21 | Physician Discharge Referral ---
ExtendedCare Referral Info Provider in Charge after Transfer: PCP Institutional Level of Care: Skilled Prognosis: Fair - Transfer Medications Home Medications: Aspirin Enteric Coated [Aspirin EC] 81 mg PO DAILY 01/15/15 [History] Losartan [Cozaar] 50 mg PO DAILY 02/26/16 [History] Atorvastatin [Lipitor] 80 mg PO HS 11/01/17 [History] Carvedilol [Coreg] 6.25 mg PO BID 11/01/17 [History] Diltiazem HCl [Diltiazem 24Hr Cd] 120 mg PO DAILY 11/01/17 [History] Ergocalciferol (VITAMIN D2) [Vitamin D2] 50,000 unit PO QWEEK 11/01/17 [History] Furosemide [Lasix] 40 mg PO DAILY 11/01/17 [History] Insulin NPH Hum/Reg Insulin Hm [Novolin 70-30 100 Unit/ml Vial] 0 units SQ TIDWM 11/01/17 [History] Allergies/Adverse Reactions: 3 Allergy/AdvReac Type Severity Reaction Status Date / Time Sulfa (Sulfonamide Allergy Swelling Verified 01/15/15 16:22 Antibiotics) of Lip/Tongue/Throat - Respiratory Orders Smoking Cessation: Smoking cessation has been advised. For more information, call the [place] Tobacco Quit Line at 3-835-OLRXNOW. CERTIFICATION: I certify that the transfer of the above named patient to an Extended Care Facility is necessary for the continuing treatment of the diagnosis listed. The above information is true and accurate reflection of patient's current condition. Confidential - Redisclosure prohibited without a patient's written consent.
[2017-11-06] MEDS: Insulin DETEMIR 100 UNIT/ML X5UNITS SQ SCH (18:28)
[2017-11-06] MEDS: *HR* Rivaroxaban 10 MG TABLET PO SCH (18:28)
[2017-11-07] MEDS: Ipratropium/Albuterol Neb 3 ML IH SCH (00:18)
== END 2017-11-06 18:20 | DRG 64 ==
LOC: EMEROOARM 02:38 → 2ANU 02:38 → SUATTDRO 05:42 → 2ANU 06:25
PROVIDERS: ADMIT Pediatrics; ATTEND Internal Medicine

== ENCOUNTER 2017-12-05 11:15 | Observation (INO) ==
[2017-12-05] MEDS ORDERED: Acetaminophen 325 MG TABLET PO ONE (11:40)
--- NOTE | 2017-12-05 12:16 | Emergency Department Note ---
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 Denies: confusion, chest pain, cough, diaphoresis, fever/chills, headaches, loss of appetite, malaise, nausea/vomiting, rash, seizure, shortness of breath, syncope Treatments Prior to Arrival: none - Related Data Home Medications Medication Instructions Recorded Confirmed RX: Aspirin Enteric Coated 81 mg PO DAILY 01/15/15 12/05/17 [Aspirin EC] RX: Losartan [Cozaar] 50 mg PO DAILY 02/26/16 12/05/17 Atorvastatin [Lipitor] 80 mg PO HS 11/01/17 12/05/17 Ergocalciferol (VITAMIN D2) 50,000 unit PO QWEEK 11/01/17 12/05/17 [Vitamin D2] Furosemide [Lasix] 40 mg PO DAILY 11/01/17 12/05/17 RX: Carvedilol [Coreg] 6.25 mg PO BID 11/01/17 12/05/17 RX: Insulin NPH Hum/Reg Insulin Hm 0 units SQ TIDWM 11/01/17 12/05/17 [Novolin 70-30 100 Unit/ml Vial] Allergies Allergy/AdvReac Type Severity Reaction Status Date / Time Sulfa (Sulfonamide Allergy Swelling Verified 01/15/15 16:22 Antibiotics) of Lip/Tongue/Throat All systems ED: reviewed and negative except as stated. Review of Systems: As Per HPI Constitutional: Reports: weakness. Denies: fever, chills, weight change Eyes: Denies: vision change ENT ED: Denies: epistaxis, congestion, dysphagia Cardiovascular: Denies: chest pain, palpitations, dyspnea on exertion, orthopnea, syncope Respiratory: Denies: cough, dyspnea, wheezes Gastrointestinal: Denies: abdominal pain, nausea, vomiting Genitourinary: Denies: urgency, dysuria, frequency, hematuria Musculoskeletal: Reports: as per HPI, myalgia Integumentary: Denies: abrasion Neurological: Denies: headache, numbness, paresthesias, confusion, vertigo Hematological/Lymphatic: Reports: easy bleeding, easy bruising Past Medical History - Past Medical History Attestation: Yes The following information was validated with the patient. Source: patient, old records reviewed (the) Medical history: Reports: atrial fibrillation, CVA, diabetes, fibromyalgia, hypertension, kidney stones, renal disease Surgical history: Reports: orthopedic, other, other Psychiatric history: Reports: no psych history - Social History Smoking Status: Never smoker Smokeless Tobacco Status: No Alcohol use: Reports: none Drug use: Reports: none Physical Exam - General Limitations: no limitations General appearance: alert, in no apparent distress - Head Head exam: atraumatic, normocephalic, normal inspection - Eye Eye exam: Present: normal appearance, PERRL, EOMI. Absent: scleral icterus, conjunctival injection, nystagmus, periorbital swelling - ENT ENT exam: mucous membranes moist - Neck Neck exam: Present: normal inspection, full ROM, trachea midline. Absent: tenderness - Expanded Neck Exam Neck exam focused ED: Absent: midline tenderness, paraspinal tenderness, tenderness (other), tracheal deviation, anterior neck swelling, carotid bruit - Chest Chest inspection: Present: normal inspection (He) - Respiratory Respiratory exam: Present: normal lung sounds bilaterally. Absent: respiratory distress - Cardiovascular Cardiovascular exam: Present: regular rate, irregular rhythm - Abdominal Exam Abdominal exam: Present: soft, Non-Tender - Extremities Exam Extremities exam: Present: full ROM, normal capillary refill. Absent: pedal edema, joint swelling, calf tenderness - Expanded Lower Extremity Exam Hip/Pelvis exam: Present: full ROM Knee exam: Present: full ROM, knee extension intact Lower leg exam: Present: tenderness, other (healing wounds - bilateral anterior) Ankle exam: Present: full ROM Foot/toe exam: Present: full ROM Neurovascular/Tendon exam: Present: normal capillary refill. Absent: pulse deficit, motor deficit, sensory deficit, foot drop Gait: not tested/not observed - Neurological Exam Neurological exam: Present: alert, oriented X3, CN II-XII intact. Absent: motor sensory deficit - Psychiatric Psychiatric exam: Present: normal affect, normal mood - Skin Skin exam: Present: warm, dry, intact, normal color Course Course Narrative: Patient was sent home from a senior living facility this morning. She had been there for two weeks for rehabilitation after having a stroke. She got home and was helped into her house. When she was trying to walk to her chair. She states that her legs felt weak and she could no longer walk. She fell forward landing on hands and knees and then was unable to get up due to weakness. She initially complained of pain "everywhere" but had no specific areas that were painful or tender. Tylenol was ordered for her pain and she declined stating that she was not having any pain anywhere. She was started on Xarelto when she was discharged from here. She denies hitting her head, denies headache, d izziness, lightheadedness, vertigo, syncope. She had no prodrome before falling. She denies unilateral weakness, chest pain, shortness of breath, fever, chills, nausea, vomiting, or paresthesias in the extremities. Her is at bedside. He was there when she fell. He is not able to confirm that she did not hit her head. Given that the patient's on Xarelto and had a fall. A CT of her head has been ordered. Labs and EKG have also been ordered to evaluate her weakness. She reports that while at the long term. She was able to walk with minimal assistance and she felt like she was improving and physical therapy. Labs are essentially unremarkable. EKG, however, does show new T-wave inversions in the inferior and lateral leads. These inversions are new compared to October when she was admitted here for the stroke. Her troponin is normal. She has no focal weakness. She will require admission for further evaluation of weakness and new T-wave inversions. Case was discussed with Dr. Cardoza. He has had [id number] time with patient and agrees with the assessment, plan. Patient's head CT was read by radiologist as no acute bleed. Sequelae of previous CVA. She has no complaints of pain at this time. She has no focal neurologic deficit at this time. Vital Signs Temperature 97.8 F 12/05/17 11:21 Pulse Rate 68 12/05/17 11:21 Respiratory Rate 18 12/05/17 11:21 Blood Pressure 135/78 12/05/17 11:21 O2 Sat by Pulse Oximetry 100 12/05/17 11:21 Temperature 97.4 F L 12/05/17 16:01 Pulse Rate 87 12/05/17 16:01 Respiratory Rate 20 12/05/17 16:01 Blood Pressure 141/82 12/05/17 16:01 O2 Sat by Pulse Oximetry 99 12/05/17 16:01 Oxygen Delivery Oxygen Delivery Nasal Cannula Medical Decision Making - Medical Records Medical records reviewed: Yes I reviewed the patient's medical records. - Lab Data Lab results reviewed: Yes I reviewed the patient's lab results. Lab results narrative: Laboratory Last Values WBC 10.0 K/mcL (4.3-11.1) 12/05/17 12:53 RBC 4.69 M/mcL (3.82-4.97) 12/05/17 12:53 Hgb 13.1 g/dL (11.5-15.4) 12/05/17 12:53 Hct 41.8 % (35.3-44.9) 12/05/17 12:53 MCV 89.1 fL (83.0-100.0) 12/05/17 12:53 MCH 27.9 pg (28.0-33.3) L 12/05/17 12:53 MCHC 31.3 g/dL (31.6-35.5) L 12/05/17 12:53 RDW 14.6 % (11.5-14.5) H 12/05/17 12:53 Plt Count 189 K/mcL (140-400) 12/05/17 12:53 MPV 13.4 fL (9.4-12.4) H 12/05/17 12:53 Immature Gran % 0.4 % (0-4) 12/05/17 12:53 Seg Neutrophils % 79.6 % 12/05/17 12:53 Lymphocytes % 8.7 % 12/05/17 12:53 Monocytes % 6.9 % 12/05/17 12:53 Eosinophils % 3.9 % 12/05/17 12:53 Basophils % 0.5 % 12/05/17 12:53 Neutrophils # 8.0 K/mcL (1.6-8.9) 12/05/17 12:53 Lymphocytes # 0.9 K/mcL (0.6-4.6) 12/05/17 12:53 Monocytes # 0.7 K/mcL (0.0-1.3) 12/05/17 12:53 Eosinophils # 0.4 K/mcL (0.0-0.6) 12/05/17 12:53 Basophils # 0.1 K/mcL (0.0-0.2) 12/05/17 12:53 Sodium 141 mEq/L (136-145) 12/05/17 12:53 Potassium 4.8 mEq/L (3.5-5.1) 12/05/17 12:53 Chloride 98 mEq/L (98-107) 12/05/17 12:53 Carbon Dioxide 36 mEq/L (23-29) H 12/05/17 12:53 BUN 37 mg/dL (8-23) H 12/05/17 12:53 Creatinine 1.18 mg/dL (0.60-1.20) 12/05/17 12:53 Est GFR ( Amer) 54 (> 60) L 12/05/17 12:53 Est GFR (Non-Af Amer) 45 (> 60) L 12/05/17 12:53 BUN/Creatinine Ratio 31 (6-26) H 12/05/17 12:53 Glucose 278 mg/dL (70-105) H 12/05/17 12:53 Calculated Osmolality 311 (280-300) H 12/05/17 12:53 Calcium 9.7 mg/dL (8.6-10.3) 12/05/17 12:53 Magnesium 2.2 mg/dL (1.6-2.6) 12/05/17 12:53 Total Bilirubin 0.7 mg/dL (0.3-1.0) 12/05/17 12:53 AST 21 Units/L (13-39) 12/05/17 12:53 ALT 18 Units/L (7-52) 12/05/17 12:53 Alkaline Phosphatase 144 Units/L (34-104) H 12/05/17 12:53 Troponin I 0.03 ng/mL (< 0.04) 12/05/17 12:53 Serum Total Protein 6.5 g/dL (6.4-8.9) 12/05/17 12:53 Albumin 3.4 g/dL (3.5-5.7) L 12/05/17 12:53 Globulin 3.1 g/dL (2.4-3.5) 12/05/17 12:53 Albumin/Globulin Ratio 1.1 (1.1-2.2) 12/05/17 12:53 Urine Color Yellow (Yellow) 12/05/17 11:40 Urine Clarity Cloudy (Clear) A 12/05/17 11:40 Urine pH 6.5 pH Units (5.0-8.0) 12/05/17 11:40 Ur Specific [place] 1.012 (1.010-1.025) 12/05/17 11:40 Urine Protein Trace mg/dL (Neg-Trace) 12/05/17 11:40 Urine Glucose (UA) Normal mg/dL (Normal) 12/05/17 11:40 Urine Ketones Negative mg/dL (Negative) 12/05/17 11:40 Urine Blood Negative (Negative) 12/05/17 11:40 Urine Nitrite Negative (Negative) 12/05/17 11:40 Urine Bilirubin Negative (Negative) 12/05/17 11:40 Urine Urobilinogen Normal mg/dL (Normal) 12/05/17 11:40 Ur Leukocyte Esterase Small (Negative) H 12/05/17 11:40 Urine Microscopic RBC 5-15 per hpf (0-3) H 12/05/17 11:40 Urine Microscopic WBC 5-15 per hpf (0-3) H 12/05/17 11:40 Ur Squamous Epith Cells Many per lpf (None-Few) H 12/05/17 11:40 Urine Bacteria Few per hpf (None-Few) 12/05/17 11:40 Hyaline Casts Few per lpf (None-Few) 12/05/17 11:40 Ur Culture Indicated? NO. (NO) A 12/05/17 11:40 Result diagrams: 12/05/17 12:53 12/05/17 12:53 Lab Results 12/05/17 12/05/17 12/05/17 Range/Units 11:40 12:53 12:53 WBC 10.0 (4.3-11.1) K/mcL RBC 4.69 (3.82-4.97) M/mcL Hgb 13.1 (11.5-15.4) g/dL Hct 41.8 (35.3-44.9) % MCV 89.1 (83.0-100.0) fL MCH 27.9 L (28.0-33.3) pg MCHC 31.3 L (31.6-35.5) g/dL RDW 14.6 H (11.5-14.5) % Plt Count 189 (140-400) K/mcL MPV 13.4 H (9.4-12.4) fL Immature Gran % 0.4 (0-4) % Seg Neutrophils % 79.6 % Lymphocytes % 8.7 % Monocytes % 6.9 % Eosinophils % 3.9 % Basophils % 0.5 % Neutrophils # 8.0 (1.6-8.9) K/mcL Lymphocytes # 0.9 (0.6-4.6) K/mcL Monocytes # 0.7 (0.0-1.3) K/mcL Eosinophils # 0.4 (0.0-0.6) K/mcL Basophils # 0.1 (0.0-0.2) K/mcL Sodium 141 (136-145) mEq/L Potassium 4.8 (3.5-5.1) mEq/L Chloride 98 (98-107) mEq/L Carbon Dioxide 36 H (23-29) mEq/L BUN 37 H (8-23) mg/dL Creatinine 1.18 (0.60-1.20) mg/dL Est GFR ( Amer) 54 L (> 60) Est GFR (Non-Af Amer) 45 L (> 60) BUN/Creatinine Ratio 31 H (6-26) Glucose 278 H (70-105) mg/dL Calculated Osmolality 311 H (280-300) Calcium 9.7 (8.6-10.3) mg/dL Magnesium 2.2 (1.6-2.6) mg/dL Total Bilirubin 0.7 (0.3-1.0) mg/dL AST 21 (13-39) Units/L ALT 18 (7-52) Units/L Alkaline Phosphatase 144 H (34-104) Units/L Troponin I 0.03 (< 0.04) ng/mL Serum Total Protein 6.5 (6.4-8.9) g/dL Albumin 3.4 L (3.5-5.7) g/dL Globulin 3.1 (2.4-3.5) g/dL Albumin/Globulin Ratio 1.1 (1.1-2.2) Urine Color Yellow (Yellow) Urine Clarity Cloudy A (Clear) Urine pH 6.5 (5.0-8.0) pH Units Ur Specific [place] 1.012 (1.010-1.025) Urine Protein Trace (Neg-Trace) mg/dL Urine Glucose (UA) Normal (Normal) mg/dL Urine Ketones Negative (Negative) mg/dL Urine Blood Negative (Negative) Urine Nitrite Negative (Negative) Urine Bilirubin Negative (Negative) Urine Urobilinogen Normal (Normal) mg/dL Ur Leukocyte Esterase Small H (Negative) Urine Microscopic RBC 5-15 H (0-3) per hpf Urine Microscopic WBC 5-15 H (0-3) per hpf Ur Squamous Epith Cells Many H (None-Few) per lpf Urine Bacteria Few (None-Few) per hpf Hyaline Casts Few (None-Few) per lpf Ur Culture Indicated? NO. A (NO) - Radiology Data Radiology results reviewed: Yes I reviewed the patient's radiology results. Chest X-Ray 12/05/17 12:06 IMPRESSION: 1. Stable mild bilateral pleural effusions and basilar atelectasis. 2. Mild bilateral perihilar interstitial edema. D/ / 12/05/2017 13:57:18 Bud Crane MD / coral Interpreting Provider: Bud Crane MD Head CT 12/05/17 13:02 IMPRESSION: No significant interval change in size of a subacute to remote infarct in the left basal ganglia. There is a subtle curvilinear hyperdensity along the left lateral aspect which likely reflects a prominent vessel or gliosis as this appears to follow the cortex and is felt to be less related to acute hemorrhage given its appearance and location. However short-term follow-up can be performed in 7-10 days if clinically indicated. Otherwise no new acute intracranial abnormality. D/ / 12/05/2017 14:53:11 Marisol Adame MD / Melissa Carrasquillo Interpreting Provider: Marisol Adame MD - EKG Data EKG #1 EKG attestation: Yes I reviewed and interpreted this EKG. EKG shows normal: sinus rhythm Rate: normal Rhythm: NSR T wave inversions noted in: III, v5, v6 When compared to previous EKG there are: changes noted Interpretation: nonspecific ST-T wave changes
[2017-12-05 12:23] LABS: Bilirubin,Urine Negative (Negative); Blood,Urine Negative (Negative); Clarity,Urine Cloudy (Clear); Color,Urine Yellow (Yellow); Glucose,Urine (UA) Normal (Normal); Ketones,Urine Negative (Negative); Leukocyte Esterase,Urine Small (Negative); Nitrite,Urine Negative (Negative); PH,Urine 6.5 pH Units (5.0-8.0); Protein,Urine Trace mg/dL (Neg-Trace); Specific Gravity,Urine 1.012 (1.010-1.025); Urobilinogen,Urine Normal (Normal)
[2017-12-05 12:25] LABS: Bacteria,Urine Few per hpf (None-Few); Hyaline Casts,Urine Few per lpf (None-Few); Squamous Epithelial Cell,Urine Many per lpf (None-Few)
[2017-12-05 13:31] LABS: Basophils # 0.1 K/mcL (0.0-0.2); Basophils % 0.5 %; Eosinophils # 0.4 K/mcL (0.0-0.6); Eosinophils % 3.9 %; Hematocrit 41.8 % (35.3-44.9); Hemoglobin 13.1 g/dL (11.5-15.4); Immature Granulocytes % 0.4 % (0-4); Lymphocytes # 0.9 K/mcL (0.6-4.6); Lymphocytes % 8.7 %; Mean Corpuscular HGB Conc 31.3 g/dL (31.6-35.5); Mean Corpuscular Hemoglobin 27.9 pg (28.0-33.3); Mean Corpuscular Volume 89.1 fL (83.0-100.0); Mean Platelet Volume 13.4 fL (9.4-12.4); Monocytes # 0.7 K/mcL (0.0-1.3); Monocytes % 6.9 %; Platelet Count 189 K/mcL (140-400); Red Blood Count 4.69 M/mcL (3.82-4.97); Red Cell Distribution Width 14.6 % (11.5-14.5); Segmented Neutrophils % 79.6 %
[2017-12-05 13:50] LABS: Albumin 3.4 g/dL (3.5-5.7); Albumin/Globulin Ratio 1.1 (1.1-2.2); Bilirubin,Total 0.7 mg/dL (0.3-1.0); Calcium 9.7 mg/dL (8.6-10.3); Globulin 3.1 g/dL (2.4-3.5); Magnesium 2.2 mg/dL (1.6-2.6); Potassium 4.8 mEq/L (3.5-5.1); Total Protein 6.5 g/dL (6.4-8.9); Troponin I 0.03 ng/mL (< 0.04)
--- NOTE | 2017-12-05 14:12 | Emergency Department Note ---
Disposition Clinical Impression: Weakness, T wave inversion in EKG Disposition: Admitted As Inpatient Condition: Fair General Adult HPI - General Chief complaint: ED Fall Stated complaint: fall Time Seen by Provider: 12/05/17 11:28 Source: patient, family, EMS Mode of arrival: EMS Limitations: no limitations - History of Present Illness Location: other ("All over") Pain Scale: 0 Quality: aching Improves with: nothing Worsens with: movement Associated symptoms: Reports: weakness. Denies: confusion, chest pain, cough, diaphoresis, fever/chills, headaches, loss of appetite, malaise, nausea/vomiting, rash, seizure, shortness of breath, syncope Treatments Prior to Arrival: none - Related Data Home Medications Medication Instructions Recorded Confirmed RX: Aspirin Enteric Coated 81 mg PO DAILY 01/15/15 12/05/17 [Aspirin EC] RX: Losartan [Cozaar] 50 mg PO DAILY 02/26/16 12/05/17 Atorvastatin [Lipitor] 80 mg PO HS 11/01/17 12/05/17 Ergocalciferol (VITAMIN D2) 50,000 unit PO QWEEK 11/01/17 12/05/17 [Vitamin D2] Furosemide [Lasix] 40 mg PO DAILY 11/01/17 12/05/17 RX: Carvedilol [Coreg] 6.25 mg PO BID 11/01/17 12/05/17 RX: Insulin NPH Hum/Reg Insulin Hm 0 units SQ TIDWM 11/01/17 12/05/17 [Novolin 70-30 100 Unit/ml Vial] Allergies Allergy/AdvReac Type Severity Reaction Status Date / Time Sulfa (Sulfonamide Allergy Swelling Verified 01/15/15 16:22 Antibiotics) of Lip/Tongue/Throat Constitutional: Reports: weakness. Denies: fever, chills, weight change Eyes: Denies: vision change ENT ED: Denies: epistaxis, congestion, dysphagia Cardiovascular: Denies: chest pain, palpitations, dyspnea on exertion, orthopnea, syncope Respiratory: Denies: cough, dyspnea, wheezes Gastrointestinal: Denies: abdominal pain, nausea, vomiting Genitourinary: Denies: urgency, dysuria, frequency, hematuria Musculoskeletal: Reports: as per HPI, myalgia Integumentary: Denies: abrasion Neurological: Denies: headache, numbness, paresthesias, confusion, vertigo Hematological/Lymphatic: Reports: easy bleeding, easy bruising Past Medical History - Past Medical History Medical history: Reports: atrial fibrillation, CVA, diabetes, fibromyalgia, hypertension, kidney stones, renal disease Surgical history: Reports: orthopedic, other, other Psychiatric history: Reports: no psych history - Social History Smoking Status: Never smoker Smokeless Tobacco Status: No Alcohol use: Reports: none Drug use: Reports: none Physical Exam - General Limitations: no limitations General appearance: alert, in no apparent distress Course Vital Signs Temperature 97.8 F 12/05/17 11:21 Pulse Rate 68 12/05/17 11:21 Respiratory Rate 18 12/05/17 11:21 Blood Pressure 135/78 12/05/17 11:21 O2 Sat by Pulse Oximetry 100 12/05/17 11:21 Temperature 97.4 F L 12/05/17 16:01 Pulse Rate 87 12/05/17 16:01 Respiratory Rate 20 12/05/17 16:01 Blood Pressure 141/82 12/05/17 16:01 O2 Sat by Pulse Oximetry 99 12/05/17 16:01 Oxygen Delivery Oxygen Delivery Nasal Cannula Medical Decision Making - Lab Data Result diagrams: 12/05/17 12:53 12/05/17 12:53 Lab Results 12/05/17 12/05/17 12/05/17 Range/Units 11:40 12:53 12:53 WBC 10.0 (4.3-11.1) K/mcL RBC 4.69 (3.82-4.97) M/mcL Hgb 13.1 (11.5-15.4) g/dL Hct 41.8 (35.3-44.9) % MCV 89.1 (83.0-100.0) fL MCH 27.9 L (28.0-33.3) pg MCHC 31.3 L (31.6-35.5) g/dL RDW 14.6 H (11.5-14.5) % Plt Count 189 (140-400) K/mcL MPV 13.4 H (9.4-12.4) fL Immature Gran % 0.4 (0-4) % Seg Neutrophils % 79.6 % Lymphocytes % 8.7 % Monocytes % 6.9 % Eosinophils % 3.9 % Basophils % 0.5 % Neutrophils # 8.0 (1.6-8.9) K/mcL Lymphocytes # 0.9 (0.6-4.6) K/mcL Monocytes # 0.7 (0.0-1.3) K/mcL Eosinophils # 0.4 (0.0-0.6) K/mcL Basophils # 0.1 (0.0-0.2) K/mcL Sodium 141 (136-145) mEq/L Potassium 4.8 (3.5-5.1) mEq/L Chloride 98 (98-107) mEq/L Carbon Dioxide 36 H (23-29) mEq/L BUN 37 H (8-23) mg/dL Creatinine 1.18 (0.60-1.20) mg/dL Est GFR ( Amer) 54 L (> 60) Est GFR (Non-Af Amer) 45 L (> 60) BUN/Creatinine Ratio 31 H (6-26) Glucose 278 H (70-105) mg/dL Calculated Osmolality 311 H (280-300) Calcium 9.7 (8.6-10.3) mg/dL Magnesium 2.2 (1.6-2.6) mg/dL Total Bilirubin 0.7 (0.3-1.0) mg/dL AST 21 (13-39) Units/L ALT 18 (7-52) Units/L Alkaline Phosphatase 144 H (34-104) Units/L Troponin I 0.03 (< 0.04) ng/mL Serum Total Protein 6.5 (6.4-8.9) g/dL Albumin 3.4 L (3.5-5.7) g/dL Globulin 3.1 (2.4-3.5) g/dL Albumin/Globulin Ratio 1.1 (1.1-2.2) Urine Color Yellow (Yellow) Urine Clarity Cloudy A (Clear) Urine pH 6.5 (5.0-8.0) pH Units Ur Specific [place] 1.012 (1.010-1.025) Urine Protein Trace (Neg-Trace) mg/dL Urine Glucose (UA) Normal (Normal) mg/dL Urine Ketones Negative (Negative) mg/dL Urine Blood Negative (Negative) Urine Nitrite Negative (Negative) Urine Bilirubin Negative (Negative) Urine Urobilinogen Normal (Normal) mg/dL Ur Leukocyte Esterase Small H (Negative) Urine Microscopic RBC 5-15 H (0-3) per hpf Urine Microscopic WBC 5-15 H (0-3) per hpf Ur Squamous Epith Cells Many H (None-Few) per lpf Urine Bacteria Few (None-Few) per hpf Hyaline Casts Few (None-Few) per lpf Ur Culture Indicated? NO. A (NO) Attestation Statement - Attestation Attestation: For this encounter, I have reviewed the OVER SHORT AND DAMAGE CLERK or PA documentation, treatment plan, and medical decision making; and I have had face to face time with this patient. [id number] time provided Patient was just released from a rehabilitation facility where she was recovering from a stroke. She was released this morning and was unable to tolerate appropriate ambulation at home. [facility] plans to admit this patient
--- NOTE | 2017-12-05 15:29 | Internal Med History&Physical ---
Date of Encounter: 12/05/17 Time of Encounter: 15:29 Internal Medicine - H&P: HPI Chief complaint: difficulty to ambulate and Fall History of present illness: Ms. Baugh is a 77 year old with PMH of CVA and s/p of two weeks for rehabilitation who presented with difficulty to ambulate and Fall . She was started on Xarelto when she was discharged. She denies hitting her head, denies headache, dizziness, lightheadedness, vertigo, syncope. A CT of her head has been ordered and revealed no abnormalities. EKG, however, does show new T-wave inversions in the inferior and lateral leads. She is chest pain free and she was admitted for further evaluation. Past Med Surg Social Fam HX - Past Medical History Medical history: atrial fibrillation, CVA, diabetes, fibromyalgia, hypertension, kidney stones, renal disease Additional medical history: weakness and slowed speech (due to CVA) Psychiatric history: no psych history - Past Surgical History Surgical History: orthopedic, other, other Additional surgical history: Carpal tunnel - bilat. hands, laser eye surgery, knee surgery (right) - Social History Smoking Status: Never smoker Smokeless Tobacco Status: No Alcohol use: none Drug use: none - Family History Father Living Status: Hx Family Cardiac Disorders: Yes Hx Family Endocrine Disorder: Yes (Diabetes) Mother Living Status: Hx Family Cancer: Yes (Reproductive CA) Internal Medicine - H&P: Meds RX: Aspirin Enteric Coated [Aspirin EC] 81 mg PO DAILY 01/15/15 [History] RX: Losartan [Cozaar] 50 mg PO DAILY 02/26/16 [History] Atorvastatin [Lipitor] 80 mg PO HS 11/01/17 [History] Ergocalciferol (VITAMIN D2) [Vitamin D2] 50,000 unit PO QWEEK 11/01/17 [History] Furosemide [Lasix] 40 mg PO DAILY 11/01/17 [History] RX: Carvedilol [Coreg] 6.25 mg PO BID 11/01/17 [History] RX: Insulin NPH Hum/Reg Insulin Hm [Novolin 70-30 100 Unit/ml Vial] 0 units SQ TIDWM 11/01/17 [History] Allergy/AdvReac Type Severity Reaction Status Date / Time Sulfa (Sulfonamide Allergy Swelling Verified 01/15/15 16:22 Antibiotics) of Lip/Tongue/Throat All Systems PM: A 10-system review of systems was performed and is negative for pertinent findings except as documented above in the HPI. - Constitutional Constitutional: fatigue, no chills, no fever(s), no night sweats - Cardiovascular Cardiovascular ROS IM: no chest pain, no diaphoresis, no dyspnea, no lightheadedness, no palpitations, no syncope - Respiratory Respiratory: no cough, no dyspnea, no wheezing, no excessive phlegm production - Genitourinary Genitourinary: no change in urinary stream, no dysuria, no flank pain, no hematuria - Neurological Neurological ROS: no confusion, no convulsions, no focal weakness, no numbness, no tingling, no tremor(s) - Constitutional Vitals: Temp Pulse Resp BP Pulse Ox 97.8 F 76 16 143/96 100 12/05/17 11:21 12/05/17 13:52 12/05/17 14:44 12/05/17 14:44 12/05/17 13:52 General appearance: Present: A&O X 3 Exam: as below - Head Head exam: Present: atraumatic, normocephalic - Neck Neck exam general surgery: Present: supple, trachea midline. Absent: lymphadenopathy - Respiratory Respiratory exam: Present: CTAB. Absent: accessory muscle use, rales, rhonchi, wheezes - Cardiovascular Cardiovascular exam: Present: RRR, +S1, +S2. Absent: diastolic murmur, gallop, rubs, systolic murmur - GI/Abdominal GI/Abdominal exam: Present: normal bowel sounds, soft, no peritoneal signs. Absent: distended, tenderness - Extremities Exam Extremities exam: Present: warm, radial pulses palpable and symmetrical. Absent: calf tenderness, cyanotic, pedal edema - Neurological Exam Neurological exam: Present: CN II-XII intact, oriented X3, no focal deficits. Absent: pronater drift, facial droop, speech deficit Internal Med - H&P Results - Labs CBC & Chem 7: 12/07/17 04:56 12/07/17 04:56 Labs: Short CBC 12/05/17 Range/Units 12:53 WBC 10.0 (4.3-11.1) K/mcL Hgb 13.1 (11.5-15.4) g/dL Hct 41.8 (35.3-44.9) % Plt Count 189 (140-400) K/mcL Neutrophils # 8.0 (1.6-8.9) K/mcL BMP 12/05/17 12:53 Sodium 141 Potassium 4.8 Chloride 98 Carbon Dioxide 36 H BUN 37 H Creatinine 1.18 Glucose 278 H Calcium 9.7 Cardiac Enzymes 12/05/17 Range/Units 12:53 Troponin I 0.03 (< 0.04) ng/mL Liver Function 12/05/17 Range/Units 12:53 Total Bilirubin 0.7 (0.3-1.0) mg/dL AST 21 (13-39) Units/L ALT 18 (7-52) Units/L Alkaline Phosphatase 144 H (34-104) Units/L Albumin 3.4 L (3.5-5.7) g/dL Urine 12/05/17 Range/Units 11:40 Urine Color Yellow (Yellow) Urine Clarity Cloudy A (Clear) Urine pH 6.5 (5.0-8.0) pH Units Ur Specific [place] 1.012 (1.010-1.025) Urine Protein Trace (Neg-Trace) mg/dL Urine Glucose (UA) Normal (Normal) mg/dL - Impressions ITS Impressions Chest X-Ray 12/05/17 12:06 IMPRESSION: 1. Stable mild bilateral pleural effusions and basilar atelectasis. 2. Mild bilateral perihilar interstitial edema. D/ / 12/05/2017 13:57:18 Bud Crane MD / [facility] Interpreting Provider: Bud Crane MD Head CT 12/05/17 13:02 IMPRESSION: No significant interval change in size of a subacute to remote infarct in the left basal ganglia. There is a subtle curvilinear hyperdensity along the left lateral aspect which likely reflects a prominent vessel or gliosis as this appears to follow the cortex and is felt to be less related to acute hemorrhage given its appearance and location. However short-term follow-up can be performed in 7-10 days if clinically indicated. Otherwise no new acute intracranial abnormality. D/ / 12/05/2017 14:53:11 Marisol Adame MD / [facility] Interpreting Provider: Mairsol Adame MD - Assessment and plan (1) T wave inversion in EKG Current Visit: Yes Status: Acute Assessment and plan: The patient is chest pain free, normal cardiac enzymes, will trend cardiac enzymes and repeat ECG. (2) Diabetes mellitus Current Visit: No Status: Chronic Assessment and plan: We will start the patient with ISC with moderate coverage Qualifiers: Diabetes mellitus type: type 2 Diabetes mellitus shelter insulin use: with shelter use Diabetes mellitus complication status: with ophthalmic complications Diabetes mellitus complication detail: with diabetic retinopathy Diabetic retinopathy severity: with unspecified retinopathy severity Diabetes mellitus macular edema: macular edema presence unspecified Laterality: unspecified laterality Qualified Code(s): E11.319 - Type 2 diabetes mellitus with unspecified diabetic retinopathy without macular edema; Z79.4 - correction (current) use of insulin (3) Hypertension Current Visit: No Status: Chronic Assessment and plan: We will cont home meds Qualifiers: Hypertension type: essential hypertension Qualified Code(s): I10 - Essential (primary) hypertension (4) Atrial fibrillation Current Visit: No Status: Chronic Assessment and plan: We will continue chronic anticoagulantion. Qualifiers: Atrial fibrillation type: chronic Qualified Code(s): I48.2 - Chronic atrial fibrillation (5) Chronic kidney disease (CKD) Current Visit: No Status: Chronic Qualifiers: Chronic kidney disease stage: stage 2 (mild) Qualified Code(s): N18.2 - Chronic kidney disease, stage 2 (mild) (6) HLD (hyperlipidemia) Current Visit: No Status: Acute Assessment and plan: Cr at baseline, we will continue to monitor. Renal dosing of meds. Qualifiers: Qualified Code(s): E78.00 - Pure hypercholesterolemia, unspecified; E78.0 - Pure hypercholesterolemia (7) DVT (deep venous thrombosis) Current Visit: No Status: Acute Qualifiers: Qualified Code(s): I82.409 - Acute embolism and thrombosis of unspecified deep veins of unspecified lower extremity - Time Spent With Patient Total time spent is greater than 50% in coordination of care (as documented) at patient's floor/unit and/or counseling patient:
[2017-12-05] MEDS ORDERED: Naloxone 0.4 MG/ML INJ IVP PRN (15:48)
[2017-12-05] MEDS ORDERED: *HR* Dextrose 50 % in Water (Syg) 50 ML SYRINGE IVP PRN (17:33)
[2017-12-05] MEDS ORDERED: D5% in Water 1,000 ML IVC PRN (17:33)
[2017-12-05] MEDS ORDERED: Dextrose Gel 15 GM/37.5 ML TUBE PO PRN ×2 (17:33)
[2017-12-05] MEDS: Cholecalciferol (D-3) 1,000 UNIT TABLET PO SCH (21:12)
[2017-12-05] MEDS: Insulin LISPRO 300 UNITS/3 ML VIAL SQ SCH (21:12)
[2017-12-06 01:15] LABS: Hematocrit 37.9 % (35.3-44.9); Hemoglobin 11.8 g/dL (11.5-15.4); Mean Corpuscular HGB Conc 31.1 g/dL (31.6-35.5); Mean Corpuscular Hemoglobin 27.6 pg (28.0-33.3); Mean Corpuscular Volume 88.8 fL (83.0-100.0); Platelet Count 173 K/mcL (140-400); Red Blood Count 4.27 M/mcL (3.82-4.97); Red Cell Distribution Width 14.6 % (11.5-14.5)
[2017-12-06 01:26] LABS: Prothrombin Time 11.6 Seconds (9.4-12.1)
[2017-12-06 01:29] LABS: Activated Partial Thrombo Time 26.2 Seconds (26.0-36.0)
[2017-12-06 01:32] LABS: Albumin 2.8 g/dL (3.5-5.7); Bilirubin,Total 0.6 mg/dL (0.3-1.0); Calcium 8.9 mg/dL (8.6-10.3); Chol/HDL Ratio 2.5 (0-4.9); Globulin 2.9 g/dL (2.4-3.5); Phosphorous 3.5 mg/dL (2.7-4.5); Total Protein 5.7 g/dL (6.4-8.9)
[2017-12-06] MEDS: Aspirin Enteric Coated 81 MG Tablet PO SCH (07:52)
[2017-12-06] MEDS: Cholecalciferol (D-3) 1,000 UNIT TABLET PO SCH (07:52)
[2017-12-06] MEDS: Insulin LISPRO 300 UNITS/3 ML VIAL SQ SCH ×4 (07:53→21:26)
[2017-12-06] MEDS ORDERED: Furosemide 40 MG TABLET PO SCH (09:00)
--- NOTE | 2017-12-06 11:30 | Internal Med Progress Note ---
Hospitalist Progress Note - Encounter Date of Encounter: 12/06/17 Time of Encounter: 11:00 - Exam Vitals: Temp Pulse Resp BP Pulse Ox 97.6 F 79 16 145/68 2 12/06/17 07:01 12/06/17 07:01 12/06/17 07:01 12/06/17 07:01 12/06/17 08:03 Exam: Gen - Awake, alert, oriented x 3, no acute distress HEENT - NCAT, PERRLA, EOMI, hearing grossly intact, oropharynx benign CV - RRR, normal S1 and S2, no M/R/G, no BLE edema Resp - Normal WOB, CTAB, no W/R/R GI - Soft, NT/ND, no masses, normal bowel sounds, Skin - Warm, dry, no rashes/lesions/ulcers Psych - Normal mood and affect, no depression or anxiety - Assessment and Plan (1) T wave inversion in EKG Current Visit: Yes Status: Acute Assessment and Plan: Pt has risk factors for CAD,with new T wave inversions on EKG Repeat EKG today. Patient declines stress test. If repeat EKG shows persistent T wave inversions, will obtain cardiology consult (2) Gait instability Current Visit: Yes Status: Acute Assessment and Plan: s/p stroke. Reportedly signed out AMA from rehab and fell at home. WIll consult PT/OT and social media community manager (3) Atrial fibrillation Current Visit: No Status: Chronic Assessment and Plan: Continue coreg. It appears patient used to be on xarelto, but she has discontinued it on her own Will child guidance counselor regarding need for anticoagulation and attempt to reinitiate anticoagulation Patient continues to decline xarelto (4) Hypertension Current Visit: No Status: Chronic Assessment and Plan: Continue coreg and losartan (5) Diabetes mellitus Current Visit: No Status: Chronic Assessment and Plan: Continue insulin and monitor fingersticks (6) Chronic kidney disease (CKD) Current Visit: No Status: Chronic Assessment and Plan: MORIAH on CKD stage 2. Will hold lasix (7) Obesity Current Visit: No Status: Chronic Assessment and Plan: Diet and exercise (8) HLD (hyperlipidemia) Current Visit: No Status: Acute Assessment and Plan: Cr at baseline, we will continue to monitor. Renal dosing of meds. DVT Prophylaxis: heparin - Time Spent with Patient Total time spent is greater than 50% in coordination of care (as documented) at patient's floor/unit and/or counseling patient: Internal Medicine: Result - Labs CBC & Chem 7: 12/06/17 00:49 12/06/17 00:49 Labs: Short CBC 12/05/17 12/06/17 Range/Units 12:53 00:49 WBC 10.0 9.3 (4.3-11.1) K/mcL Hgb 13.1 11.8 (11.5-15.4) g/dL Hct 41.8 37.9 (35.3-44.9) % Plt Count 189 173 (140-400) K/mcL Neutrophils # 8.0 (1.6-8.9) K/mcL BMP 12/05/17 12/06/17 12:53 00:49 Sodium 141 141 Potassium 4.8 4.0 Chloride 98 101 Carbon Dioxide 36 H 35 H BUN 37 H 38 H Creatinine 1.18 1.23 H Glucose 278 H 216 H Calcium 9.7 8.9 Cardiac Enzymes 12/05/17 12/05/17 12/06/17 Range/Units 12:53 18:39 00:49 Troponin I 0.03 0.03 < 0.03 (< 0.04) ng/mL 12/06/17 Range/Units 06:06 Troponin I < 0.03 (< 0.04) ng/mL Liver Function 12/05/17 12/06/17 Range/Units 12:53 00:49 Total Bilirubin 0.7 0.6 (0.3-1.0) mg/dL AST 21 18 (13-39) Units/L ALT 18 16 (7-52) Units/L Alkaline Phosphatase 144 H 124 H (34-104) Units/L Albumin 3.4 L 2.8 L (3.5-5.7) g/dL Urine 12/05/17 Range/Units 11:40 Urine Color Yellow (Yellow) Urine Clarity Cloudy A (Clear) Urine pH 6.5 (5.0-8.0) pH Units Ur Specific [place] 1.012 (1.010-1.025) Urine Protein Trace (Neg-Trace) mg/dL Urine Glucose (UA) Normal (Normal) mg/dL - ABG Interpretation ABG results: PT/INR, D-dimer PT 11.6 Seconds (9.4-12.1) 12/06/17 00:49 - Impressions Impressions Chest X-Ray 12/05/17 12:06 IMPRESSION: 1. Stable mild bilateral pleural effusions and basilar atelectasis. 2. Mild bilateral perihilar interstitial edema. D/ / 12/05/2017 13:57:18 Bud Crane MD / [email or web address] Interpreting Provider: Bud Crane MD Head CT 12/05/17 13:02 IMPRESSION: No significant interval change in size of a subacute to remote infarct in the left basal ganglia. There is a subtle curvilinear hyperdensity along the left lateral aspect which likely reflects a prominent vessel or gliosis as this appears to follow the cortex and is felt to be less related to acute hemorrhage given its appearance and location. However short-term follow-up can be performed in 7-10 days if clinically indicated. Otherwise no new acute intracranial abnormality. D/ / 12/05/2017 14:53:11 Marisol Adame MD / [facility] Interpreting Provider: Marisol Adame MD Consult Discharge Plan - Plan Referrals: Fabio Mckenzie MD [Primary Care Provider] - (3) Atrial fibrillation Qualifiers: Atrial fibrillation type: chronic Qualified Code(s): I48.2 - Chronic atrial fibrillation (4) Hypertension Qualifiers: Hypertension type: essential hypertension Qualified Code(s): I10 - Essential (primary) hypertension (5) Diabetes mellitus Qualifiers: Diabetes mellitus type: type 2 Diabetes mellitus mcfp insulin use: with mcfp use Diabetes mellitus complication status: with ophthalmic complica tions Diabetes mellitus complication detail: with diabetic retinopathy Diabetic retinopathy severity: with unspecified retinopathy severity Diabetes mellitus macular edema: macular edema presence unspecified Laterality: unspecified laterality Qualified Code(s): E11.319 - Type 2 diabetes mellitus with unspecified diabetic retinopathy without macular edema; 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
[2017-12-06] MEDS: *HR* Heparin 5,000 UNIT/ML VIAL SQ SCH (16:48)
[2017-12-07 05:17] LABS: Basophils # 0.1 K/mcL (0.0-0.2); Basophils % 0.8 %; Eosinophils # 0.4 K/mcL (0.0-0.6); Eosinophils % 5.9 %; Hematocrit 36.3 % (35.3-44.9); Hemoglobin 11.5 g/dL (11.5-15.4); Immature Granulocytes % 0.3 % (0-4); Lymphocytes # 1.5 K/mcL (0.6-4.6); Lymphocytes % 22.4 %; Mean Corpuscular HGB Conc 31.7 g/dL (31.6-35.5); Mean Corpuscular Hemoglobin 28.3 pg (28.0-33.3); Mean Corpuscular Volume 89.2 fL (83.0-100.0); Mean Platelet Volume 13.1 fL (9.4-12.4); Monocytes # 0.8 K/mcL (0.0-1.3); Monocytes % 11.3 %; Neutrophils # 3.9 K/mcL (1.6-8.9); Platelet Count 157 K/mcL (140-400); Red Blood Count 4.07 M/mcL (3.82-4.97); Red Cell Distribution Width 14.6 % (11.5-14.5); Segmented Neutrophils % 59.3 %
[2017-12-07 05:34] LABS: Magnesium 1.9 mg/dL (1.6-2.6); Phosphorous 4.4 mg/dL (2.7-4.5)
[2017-12-07] MEDS: *HR* Heparin 5,000 UNIT/ML VIAL SQ SCH ×2 (05:54→17:22)
[2017-12-07] MEDS ORDERED: Regadenoson 0.4 MG/5 ML SYRINGE IVP ONE (06:18)
[2017-12-07] MEDS: Cholecalciferol (D-3) 1,000 UNIT TABLET PO SCH (09:31)
[2017-12-07] MEDS: Aspirin Enteric Coated 81 MG Tablet PO SCH (09:31)
[2017-12-07] MEDS: Insulin LISPRO 300 UNITS/3 ML VIAL SQ SCH ×4 (09:32→21:16)
--- NOTE | 2017-12-07 10:50 | Internal Med Progress Note ---
Hospitalist Progress Note - Encounter Date of Encounter: 12/07/17 Time of Encounter: 11:00 - Exam Vitals: Temp Pulse Resp BP Pulse Ox 97.8 F 84 14 121/73 99 12/07/17 07:22 12/07/17 07:22 12/07/17 07:22 12/07/17 07:22 12/07/17 07:22 Exam: Gen - Awake, alert, oriented x 3, no acute distress HEENT - NCAT, PERRLA, EOMI, hearing grossly intact, oropharynx benign CV - RRR, normal S1 and S2, no M/R/G, no BLE edema Resp - Normal WOB, CTAB, no W/R/R GI - Soft, NT/ND, no masses, normal bowel sounds, Skin - Warm, dry, no rashes/lesions/ulcers Psych - Normal mood and affect, no depression or anxiety - Assessment and Plan (1) Gait instability Current Visit: Yes Status: Acute Assessment and Plan: s/p stroke. Reportedly signed out AMA from rehab and fell at home. Will consult PT/OT and social work case manager PT recs for discharge planning (2) T wave inversion in EKG Current Visit: Yes Status: Acute Assessment and Plan: Pt has risk factors for CAD,with new T wave inversions on EKG As patient is asymptomatic, no further cardiac workup recommended per cardiology. Discussed with Dr Story (3) Diabetes mellitus Current Visit: No Status: Chronic Assessment and Plan: Continue insulin and monitor fingersticks (4) Chronic kidney disease (CKD) Current Visit: No Status: Chronic Assessment and Plan: MORIAH on CKD stage 2. Will hold lasix. Creatinine got slightly worse so will hydrate gently today. Pt has preserved EF on echo (5) Hypertension Current Visit: No Status: Chronic Assessment and Plan: Continue coreg and losartan (6) Atrial fibrillation Current Visit: No Status: Chronic Assessment and Plan: Continue coreg. It appears patient used to be on xarelto, but she has discontinued it Counseled regarding need for anticoagulation but patient continues to decline xarelto (7) HLD (hyperlipidemia) Current Visit: No Status: Acute Assessment and Plan: Continue statin DVT Prophylaxis: heparin sc - Time Spent with Patient Total time spent is greater than 50% in coordination of care (as documented) at patient's floor/unit and/or counseling patient: Internal Medicine: Result - Labs CBC & Chem 7: 12/07/17 04:56 12/07/17 04:56 Labs: Short CBC 12/07/17 Range/Units 04:56 WBC 6.6 (4.3-11.1) K/mcL Hgb 11.5 (11.5-15.4) g/dL Hct 36.3 (35.3-44.9) % Plt Count 157 (140-400) K/mcL Neutrophils # 3.9 (1.6-8.9) K/mcL BMP 12/07/17 04:56 Sodium 140 Potassium 4.0 Chloride 101 Carbon Dioxide 33 H BUN 43 H Creatinine 1.33 H Glucose 175 H Calcium 9.0 - ABG Interpretation ABG results: PT/INR, D-dimer PT 11.6 Seconds (9.4-12.1) 12/06/17 00:49 Consult Discharge Plan - Plan Referrals: Fabio Mckenzie MD [Primary Care Provider] - (3) Diabetes mellitus Qualifiers: Diabetes mellitus type: type 2 Diabetes mellitus [facility] insulin use: with tack cleaner use Diabetes mellitus complication status: with ophthalmic complications Diabetes mellitus complication detail: with diabetic retinopathy Diabetic retinopathy severity: with unspecified retinopathy severity Diabetes mellitus macular edema: macular edema presence unspecified Laterality: unspecified laterality Qualified Code(s): E11.319 - Type 2 diabetes mellitus with unspecified diabetic retinopathy without macular edema; 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
[2017-12-07] MEDS: 0.9 % Sodium Chloride 1,000 ML IVC SCH (12:38)
[2017-12-08 04:08] LABS: Basophils # 0.1 K/mcL (0.0-0.2); Basophils % 1.1 %; Eosinophils # 0.4 K/mcL (0.0-0.6); Eosinophils % 5.8 %; Hematocrit 35.3 % (35.3-44.9); Hemoglobin 10.8 g/dL (11.5-15.4); Immature Granulocytes % 0.3 % (0-4); Lymphocytes # 1.6 K/mcL (0.6-4.6); Lymphocytes % 21.3 %; Mean Corpuscular HGB Conc 30.6 g/dL (31.6-35.5); Mean Corpuscular Hemoglobin 27.9 pg (28.0-33.3); Mean Corpuscular Volume 91.2 fL (83.0-100.0); Mean Platelet Volume 12.5 fL (9.4-12.4); Monocytes # 0.9 K/mcL (0.0-1.3); Monocytes % 11.4 %; Neutrophils # 4.6 K/mcL (1.6-8.9); Platelet Count 140 K/mcL (140-400); Red Blood Count 3.87 M/mcL (3.82-4.97); Red Cell Distribution Width 14.6 % (11.5-14.5); Segmented Neutrophils % 60.1 %
[2017-12-08] MEDS: 0.9 % Sodium Chloride 1,000 ML IVC SCH ×2 (04:58→21:43)
[2017-12-08] MEDS: *HR* Heparin 5,000 UNIT/ML VIAL SQ SCH ×2 (04:59→17:32)
[2017-12-08 06:36] LABS: Calcium 8.8 mg/dL (8.6-10.3); Magnesium 1.9 mg/dL (1.6-2.6); Phosphorous 4.2 mg/dL (2.7-4.5); Potassium 4.1 mEq/L (3.5-5.1)
[2017-12-08] MEDS: Insulin LISPRO 300 UNITS/3 ML VIAL SQ SCH ×3 (08:11→17:33)
[2017-12-08] MEDS: Cholecalciferol (D-3) 1,000 UNIT TABLET PO SCH (09:22)
[2017-12-08] MEDS: Aspirin Enteric Coated 81 MG Tablet PO SCH (09:22)
--- NOTE | 2017-12-08 14:25 | Internal Med Progress Note ---
Hospitalist Progress Note - Encounter Date of Encounter: 12/08/17 Time of Encounter: 14:18 - Subjective Interval History: No acute changes overnight - Exam Vitals: Temp Pulse Resp BP Pulse Ox 97.6 F 87 18 159/86 98 12/08/17 11:08 12/08/17 11:08 12/08/17 11:08 12/08/17 11:08 12/08/17 11:08 Exam: Gen - Awake, alert, oriented x 3, no acute distress HEENT - NCAT, PERRLA, EOMI, hearing grossly intact, oropharynx benign CV - RRR, normal S1 and S2, no M/R/G, no BLE edema Resp - Normal WOB, CTAB, no W/R/R GI - Soft, NT/ND, no masses, normal bowel sounds, Skin - Warm, dry, no rashes/lesions/ulcers Neuro- CN II-XII intact, no new focal neuro deficits Psych - Normal mood and affect, no depression or anxiety - Assessment and Plan (1) Diabetes mellitus Current Visit: No Status: Chronic Assessment and Plan: blood glucose elevated this morning and this afternoon increase SSIC (2) Chronic kidney disease (CKD) Current Visit: No Status: Chronic Assessment and Plan: MORIAH on CKD stage II avoid nephrotoxins renal function improved overnight (3) Hypertension Current Visit: No Status: Chronic Assessment and Plan: controlled, Continue coreg and losartan (4) Atrial fibrillation Current Visit: No Status: Chronic Assessment and Plan: Continue coreg Noncompliant with Xarelto; has self discontinued Discussed need for anticoagulation in the setting of A. fib Continues to decline anticoagulation (5) HLD (hyperlipidemia) Current Visit: No Status: Acute Assessment and Plan: Cont statin (6) T wave inversion in EKG Current Visit: Yes Status: Acute Assessment and Plan: Pt has risk factors for CAD,with new T wave inversions on EKG Pains asymptomatic, no further cardiac workup recommended per cardiology. Discussed with Dr Story (7) Gait instability Current Visit: Yes Status: Acute Assessment and Plan: s/p stroke. Reportedly signed out AMA from rehab and fell at home Continuous PT/OT while inpatient Recommendations our SNF D/C Discuss with assess for DC planning - Time Spent with Patient Total time spent is greater than 50% in coordination of care (as documented) at patient's floor/unit and/or counseling patient: less than 15 minutes Plan of Care Discussed with: patient Internal Medicine: Result - Labs CBC & Chem 7: 12/08/17 03:55 12/08/17 05:48 Labs: Short CBC 12/08/17 Range/Units 03:55 WBC 7.6 (4.3-11.1) K/mcL Hgb 10.8 L (11.5-15.4) g/dL Hct 35.3 (35.3-44.9) % Plt Count 140 (140-400) K/mcL Neutrophils # 4.6 (1.6-8.9) K/mcL BMP 12/08/17 05:48 Sodium 142 Potassium 4.1 Chloride 106 Carbon Dioxide 31 H BUN 39 H Creatinine 1.13 Glucose 138 H Calcium 8.8 - ABG Interpretation ABG results: PT/INR, D-dimer PT 11.6 Seconds (9.4-12.1) 12/06/17 00:49 - Impressions Impressions Head CT 12/05/17 13:02 IMPRESSION: No significant interval change in size of a subacute to remote infarct in the left basal ganglia. There is a subtle curvilinear hyperdensity along the left lateral aspect which likely reflects a prominent vessel or gliosis as this appears to follow the cortex and is felt to be less related to acute hemorrhage given its appearance and location. However short-term follow-up can be performed in 7-10 days if clinically indicated. Otherwise no new acute intracranial abnormality. D/ / 12/05/2017 14:53:11 Marisol Adame MD / Melissa Carrasquillo Interpreting Provider: Marisol Adame MD Consult Discharge Plan - Plan Referrals: Fabio Mckenzie MD [Primary Care Provider] - (1) Diabetes mellitus Qualifiers: Diabetes mellitus type: type 2 Diabetes mellitus moth exterminator insulin use: with fpc use Diabetes mellitus complication status: with ophthalmic complications Diabetes mellitus complication detail: with diabetic retinopathy Diabetic retinopathy severity: with unspecified retinopathy severity Diabetes mellitus macular edema: macular edema presence unspecified Laterality: unspecified laterality Qualified Code(s): E11.319 - Type 2 diabetes mellitus with unspecified diabetic retinopathy without macular edema; Z79.4 - moth exterminator (current) use of insulin (2) Chronic kidney disease (CKD) Qualifiers: Chronic kidney disease stage: stage 2 (mild) Qualified Code(s): N18.2 - Chronic kidney disease, stage 2 (mild) (3) Hypertension Qualifiers: Hypertension type: essential hypertension Qualified Code(s): I10 - Essential (primary) hypertension (4) Atrial fibrillation Qualifiers: Atrial fibrillation type: chronic Qualified Code(s): I48.2 - Chronic atrial fibrillation (5) HLD (hyperlipidemia) Qualifiers: Qualified Code(s): E78.00 - Pure hypercholesterolemia, unspecified; E78.0 - Pure hypercholesterolemia
[2017-12-08] MEDS ORDERED: Insulin LISPRO 300 UNITS/3 ML VIAL SQ SCH (21:00)
[2017-12-09 04:46] LABS: Basophils # 0.1 K/mcL (0.0-0.2); Basophils % 0.7 %; Eosinophils # 0.4 K/mcL (0.0-0.6); Eosinophils % 5.9 %; Hematocrit 37.5 % (35.3-44.9); Hemoglobin 11.6 g/dL (11.5-15.4); Immature Granulocytes % 0.4 % (0-4); Lymphocytes # 1.5 K/mcL (0.6-4.6); Lymphocytes % 20.2 %; Mean Corpuscular HGB Conc 30.9 g/dL (31.6-35.5); Mean Corpuscular Hemoglobin 28.2 pg (28.0-33.3); Mean Platelet Volume 12.8 fL (9.4-12.4); Monocytes # 0.7 K/mcL (0.0-1.3); Monocytes % 9.9 %; Neutrophils # 4.7 K/mcL (1.6-8.9); Platelet Count 174 K/mcL (140-400); Red Blood Count 4.12 M/mcL (3.82-4.97); Red Cell Distribution Width 14.6 % (11.5-14.5); Segmented Neutrophils % 62.9 %
[2017-12-09 05:07] LABS: BUN/Creatinine Ratio 34 (6-26); Blood Urea Nitrogen 35 mg/dL (8-23); Carbon Dioxide 31 mEq/L (23-29); Chloride 105 mEq/L (98-107); Glucose 147 mg/dL (70-105); Magnesium 1.9 mg/dL (1.6-2.6); Osmolality,Calculated 303 (280-300); Phosphorous 3.8 mg/dL (2.7-4.5); Potassium 4.4 mEq/L (3.5-5.1); Sodium 141 mEq/L (136-145); eGFR For Non-African Americans 53 (> 60)
[2017-12-09] MEDS: *HR* Heparin 5,000 UNIT/ML VIAL SQ SCH (05:31)
[2017-12-09] MEDS: Cholecalciferol (D-3) 1,000 UNIT TABLET PO SCH (08:24)
[2017-12-09] MEDS: Aspirin Enteric Coated 81 MG Tablet PO SCH (08:24)
[2017-12-09] MEDS: Insulin LISPRO 300 UNITS/3 ML VIAL SQ SCH ×3 (08:26→17:11)
--- NOTE | 2017-12-09 10:17 | Internal Med Progress Note ---
Hospitalist Progress Note - Encounter Date of Encounter: 12/09/17 Time of Encounter: 10:15 - Subjective Interval History: No acute changes overnight, she is reporting left foot pain, worse with weightbearing, etiology unclear denies any trauma. - Exam Vitals: Temp Pulse Resp BP Pulse Ox 98.1 F 87 16 158/79 99 12/09/17 06:56 12/09/17 06:56 12/09/17 06:56 12/09/17 06:56 12/09/17 06:56 Exam: Gen - Awake, alert, oriented x 3, no acute distress HEENT - NCAT, PERRLA, EOMI, hearing grossly intact, oropharynx benign CV - RRR, normal S1 and S2, no M/R/G, no BLE edema Resp - clear to auscultation bilaterally AP and L GI - Soft, NT/ND, no masses, normal bowel sounds, Skin - Warm, dry, no rashes/lesions/ulcers Neuro- CN II-XII intact, no new focal neuro deficits Psych - agitated - Assessment and Plan (1) Diabetes mellitus Current Visit: No Status: Chronic Assessment and Plan: blood glucose elevated this morning and this afternoon increase [facility] 12/09--blood glucose improved overnight with increase his Lantus Insulin Coverage. Continue Sliding Scale Coverage and Monitor. (2) Chronic kidney disease (CKD) Current Visit: No Status: Chronic Assessment and Plan: MORIAH on CKD stage II avoid nephrotoxins renal function remains stable, continue to monitor (3) Hypertension Current Visit: No Status: Chronic Assessment and Plan: controlled, Continue coreg and losartan, monitor and adjust as needed (4) Atrial fibrillation Current Visit: No Status: Chronic Assessment and Plan: Continue coreg Noncompliant with Xarelto; has self discontinued Discussed need for anticoagulation in the setting of A. fib Continues to decline anticoagulation (5) HLD (hyperlipidemia) Current Visit: No Status: Acute Assessment and Plan: Cont statin (6) T wave inversion in EKG Current Visit: Yes Status: Acute Assessment and Plan: Pt has risk factors for CAD,with new T wave inversions on EKG Pains asymptomatic, no further cardiac workup recommended per cardiology. Discussed with Dr Story (7) Gait instability Current Visit: Yes Status: Acute Assessment and Plan: s/p stroke. Reportedly signed out AMA from rehab and fell at home Continuous PT/OT while inpatient Recommendations our SNF D/C; plans is to d/c today; d/w family, SS and N Deon this afternoon Discuss with assess for DC planning DVT Prophylaxis: continue heparin sc - Time Spent with Patient Total time spent is greater than 50% in coordination of care (as documented) at patient's floor/unit and/or counseling patient: less than 15 minutes Plan of Care Discussed with: patient Internal Medicine: Result - Labs CBC & Chem 7: 12/09/17 04:28 12/09/17 04:28 Labs: Short CBC 12/09/17 Range/Units 04:28 WBC 7.5 (4.3-11.1) K/mcL Hgb 11.6 (11.5-15.4) g/dL Hct 37.5 (35.3-44.9) % Plt Count 174 (140-400) K/mcL Neutrophils # 4.7 (1.6-8.9) K/mcL BMP 12/09/17 04:28 Sodium 141 Potassium 4.4 Chloride 105 Carbon Dioxide 31 H BUN 35 H Creatinine 1.02 Glucose 147 H Calcium 9.0 - ABG Interpretation ABG results: PT/INR, D-dimer PT 11.6 Seconds (9.4-12.1) 12/06/17 00:49 Consult Discharge Plan - Plan Referrals: Fabio Mckenzie MD [Primary Care Provider] - (1) Diabetes mellitus Qualifiers: Diabetes mellitus type: type 2 Diabetes 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 inspector insulin use: with fpc use Diabetes mellitus complication status: with ophthalmic complications Diabetes mellitus complication detail: with diabetic retinopathy Diabetic retinopathy severity: with unspecified retinopathy severity Diabetes mellitus macular edema: macular edema presence unspecified Laterality: unspecified laterality Qualified Code(s): E11.319 - Type 2 diabetes mellitus with unspecified diabetic retinopathy without macular edema; Z79.4 - termite treater (current) use of insulin (2) Chronic kidney disease (CKD) Qualifiers: Chronic kidney disease stage: stage 2 (mild) Qualified Code(s): N18.2 - Chronic kidney disease, stage 2 (mild) (3) Hypertension Qualifiers: Hypertension type: essential hypertension Qualified Code(s): I10 - Essential (primary) hypertension (4) Atrial fibrillation Qualifiers: Atrial fibrillation type: chronic Qualified Code(s): I48.2 - Chronic atrial fibrillation (5) HLD (hyperlipidemia) Qualifiers: Qualified Code(s): E78.00 - Pure hypercholesterolemia, unspecified; E78.0 - Pure hypercholesterolemia
[2017-12-09 15:43] VITALS: BP 158/89
--- NOTE | 2017-12-09 17:18 | Discharge Summary ---
Orders not resulted at time of discharge: Pending orders 12/10/17 04:00 Basic Metabolic Panel AM 0400 CBC [Complete Blood Count] [HEME] AM 0400 Magnesium AM 0400 Phosphorous AM 0400 12/11/17 04:00 Basic Metabolic Panel AM 0400 CBC [Complete Blood Count] [HEME] AM 0400 Magnesium AM 0400 Phosphorous AM 0400 12/12/17 04:00 Basic Metabolic Panel AM 0400 CBC [Complete Blood Count] [HEME] AM 0400 Magnesium AM 0400 Phosphorous AM 0400 Date of Encounter: 12/09/17 Time of Encounter: 16:52 - Discharge Diagnosis (1) Gait instability Priority: Primary Status: Acute Assessment and Plan: s/p stroke. Reportedly signed out AMA from rehab and fell at home Continuous PT/OT while inpatient Recommendations our SNF D/C; plans is to d/c today; d/w family, SS and N [place] this afternoon Discuss with assess for DC planning (2) Diabetes mellitus Priority: Secondary Status: Chronic Assessment and Plan: blood glucose elevated this morning and this afternoon increase [facility] 12/09--blood glucose improved overnight with increase his Lantus Insulin Coverage. Continue Sliding Scale Coverage and Monitor. 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 edema; Z79.4 - long term (current) use of insulin (3) Chronic kidney disease (CKD) Priority: Secondary Status: Chronic Assessment and Plan: MORIAH on CKD stage II avoid nephrotoxins renal function remains stable, continue to monitor Qualifiers: Chronic kidney disease stage: stage 2 (mild) Qualified Code(s): N18.2 - Chronic kidney disease, stage 2 (mild) (4) Hypertension Priority: Secondary Status: Chronic Assessment and Plan: controlled, Continue coreg and losartan, monitor and adjust as needed Qualifiers: Hypertension type: essential hypertension Qualified Code(s): I10 - Essential (primary) hypertension (5) Atrial fibrillation Priority: Secondary Status: Chronic Assessment and Plan: Continue coreg Noncompliant with Xarelto; has self discontinued Discussed need for anticoagulation in the setting of A. fib Continues to decline anticoagulation Qualifiers: Atrial fibrillation type: chronic Qualified Code(s): I48.2 - Chronic atrial fibrillation (6) HLD (hyperlipidemia) Priority: Secondary Status: Acute Assessment and Plan: Cont statin Qualifiers: Qualified Code(s): E78.00 - Pure hypercholesterolemia, unspecified; E78.0 - Pure hypercholesterolemia (7) T wave inversion in EKG Priority: Secondary Status: Acute Assessment and Plan: Pt has risk factors for CAD,with new T wave inversions on EKG Pains asymptomatic, no further cardiac workup recommended per cardiology. Discussed with Dr Story [facility] course: Ms. Baugh is a 77 year old female past medical history of nonvalvular A. fib, CVA, DM, fibromyalgia, HTN, any stones or renal disease. She is S/P CVA in October 2017. At that time it appears that the patient developed an infarct in the MCA territory secondary to severe left MCA stenosis/occlusion. She was discharged from [facility] to a rehabilitation facility however she discharged from the rehabilitation facility home AGAINST MEDICAL ADVICE. While at home the patient was having difficulty ambulating and fell. This prompted her readmission to [facility]. Throughout the stay she has received PT/OT. She is being discharged to [facility] [place] for further rehabilitation and extended stay. During her last stay at [facility] she was discharged with Xarelto for anticoagulation as per recommendations of neurology. However, the patient self discontinued this medication. Throughout the stay she has been educated multiple occasions regarding the need to resume oral anticoagulation however, the patient is continuing to decline its use. She is being discharged without oral anticoagulation as she is refusing. This was discussed with family who is aware. She was found to have no additional neurological deficits during the stay, head CT negative for acute intracranial abnormalities. Uneventful hospital course. She is being discharged in stable condition Discharge discussed with: patient, family, nurse - Time Spent with Patient Total time spent providing and/or coordinating discharge services: Less than 30 minutes - Discharge Medications Home Medications: Aspirin Enteric Coated [Aspirin EC] 81 mg PO DAILY 01/15/15 [History] Losartan [Cozaar] 50 mg PO DAILY 02/26/16 [History] Atorvastatin [Lipitor] 80 mg PO HS 11/01/17 [History] Carvedilol [Coreg] 6.25 mg PO BID 11/01/17 [History] Ergocalciferol (VITAMIN D2) [Vitamin D2] 50,000 unit PO QWEEK 11/01/17 [History] Furosemide [Lasix] 40 mg PO DAILY 11/01/17 [History] Insulin NPH Hum/Reg Insulin Hm [Novolin 70-30 100 Unit/ml Vial] 0 units SQ TIDWM 11/01/17 [History] Allergies/Adverse Reactions: Allergy/AdvReac Type Severity Reaction Status Date / Time Sulfa (Sulfonamide Allergy Swelling Verified 01/15/15 16:22 Antibiotics) of Lip/Tongue/Throat Date of admission: 12/05/17 14:34 Primary care physician: Fabio Mckenzie MD Consults: 12/06/17 11:19 Consult to Physical Therapy [CONS] Routine Comment: Evaluate, develop and implement POC Reason for Consult: difficulty walking/ gait instaility Does patient have active BEDREST order?: No Is patient medically & hemodynamically stable?: Yes Patient assessed for mobility or mobilized this visit?: No 12/06/17 11:20 Consult to Occupational Therapy [CONS] Routine Comment: Evaluate, develop and implement POC Reason for Consult: gait instability Does patient have active BEDREST order?: No Is patient medically & hemodynamically stable?: Yes Patient assessed for mobility or mobilized this visit?: No 12/07/17 12:24 Consult to Fuel Cell Designer [CONS] Routine Reason for SW Consult: SNF/ECF Discharging clinician: Donald Worthy Anticipated date of discharge: 12/09/17 - Constitutional Vitals: Temp Pulse Resp BP Pulse Ox 98.1 F 92 19 158/89 98 12/09/17 15:40 12/09/17 15:40 12/09/17 15:40 12/09/17 15:40 12/09/17 15:40 General appearance: Present: A&O X 3 Exam: Gen - Awake, alert, oriented x 3, no acute distress HEENT - NCAT, PERRLA, EOMI, hearing grossly intact, oropharynx benign CV - RRR, normal S1 and S2, no M/R/G, no BLE edema Resp - clear to auscultation bilaterally AP and L GI - Soft, NT/ND, no masses, normal bowel sounds, Skin - Warm, dry, no rashes/lesions/ulcers Neuro- CN II-XII intact, no new focal neuro deficits Psych - agitated - Patient Status Disposition: Transfer SNF Condition: Fair Functional capacity at discharge: uses cane/walker Overall status at discharge: patient is progressing back to baseline - Discharge Instructions Follow Up With: Fabio Mckenzie MD [Primary Care Provider] - - Diet and Activity Activity: as per physical therapy, increase activity as tolerated, resume usual activities as tolerated Diet: diabetic diet, low fat, low cholesterol, low salt diet
--- NOTE | 2017-12-09 17:35 | Physician Discharge Referral ---
ExtendedCare Referral Info Transfer To: [facility] Provider in Charge after Transfer: PCP Institutional Level of Care: Skilled - Diagnosis (1) Gait instability Priority: Primary Status: Acute (2) Diabetes mellitus Priority: Secondary Status: Chronic (3) Chronic kidney disease (CKD) Priority: Secondary Status: Chronic (4) Hypertension Priority: Secondary Status: Chronic (5) Atrial fibrillation Priority: Secondary Status: Chronic (6) HLD (hyperlipidemia) Priority: Secondary Status: Acute (7) T wave inversion in EKG Priority: Secondary Status: Acute Prognosis: Fair Aware of Diagnosis: Patient, Family Aware of Prognosis: Patient, Family - Transfer Medications Home Medications: Aspirin Enteric Coated [Aspirin EC] 81 mg PO DAILY 01/15/15 [History] Losartan [Cozaar] 50 mg PO DAILY 02/26/16 [History] Atorvastatin [Lipitor] 80 mg PO HS 11/01/17 [History] Carvedilol [Coreg] 6.25 mg PO BID 11/01/17 [History] Ergocalciferol (VITAMIN D2) [Vitamin D2] 50,000 unit PO QWEEK 11/01/17 [History] Furosemide [Lasix] 40 mg PO DAILY 11/01/17 [History] Insulin NPH Hum/Reg Insulin Hm [Novolin 70-30 100 Unit/ml Vial] 0 units SQ TIDWM 11/01/17 [History] Allergies/Adverse Reactions: Allergy/AdvReac Type Severity Reaction Status Date / Time Sulfa (Sulfonamide Allergy Swelling Verified 01/15/15 16:22 Antibiotics) of Lip/Tongue/Throat - Respiratory Orders Smoking Cessation: Smoking cessation has been advised. For more information, call the [place] Tobacco Quit Line at 1-597-TUUONOW. - Advance Directives Code Status: Full Code - Mobility Orders Ambulate - Rehabiliation Orders Rehab Potential: Fair Rehab Orders: ROM Exercises, Evaluation for Physical Therapy, Evaluation for Occupational Therapy - Diet Orders No Added Salt (LINNEA), No Concentrated Sweets, Cardiac CERTIFICATION: I certify that the transfer of the above named patient to an Extended Care Facility is necessary for the continuing treatment of the diagnosis listed. The above information is true and accurate reflection of patient's current condition. Confidential - Redisclosure prohibited without a patient's written consent.
--- NOTE | 2017-12-11 18:08 | Electrocardiograph Report ---
[address] [place], [place] [address] Test Date: 2017-12-05 Pat Name: Courtney Baugh Department: EXAM1 Room: 3B64 Gender: F Loading Manager: : 1940 Requested By: Analisa Rosales Order Number: [id number] Reading MD: Shiv Parikh Measurements Intervals [place] Rate: 74 P: [place]: QRS: 52 QRSD: 90 T: 178 QT: 397 QTc: 441 Interpretive Statements Atrial fibrillation Repol abnrm suggests ischemia, anterolateral Electronically Signed On 12-11-2017 18:07:10 EDT by Shiv Parikh
--- NOTE | 2017-12-11 18:56 | Electrocardiograph Report ---
[address] [place] [address] Test Date: 2017-12-06 Pat Name: Courtney Baugh Department: 113 Room: 3B64 Gender: F Instructor Psychiatric Aide: : 1940 Requested By: Isabella Tompkins Order Number: [id number] Reading MD: Shiv Parikh Measurements Intervals [place] Rate: 80 P: [place]: 0 QRS: 12 QRSD: 92 T: 162 QT: 387 QTc: 423 Interpretive Statements ATRIAL FIBRILLATION ST DEVIATION AND MODERATE T-WAVE ABNORMALITY, CONSIDER LATERAL ISCHEMIA Electronically Signed On 12-11-2017 18:54:05 EDT by Shiv Parikh
== END 2017-12-09 19:35 ==
LOC: EMEROOARM 11:15 → 3BNU 11:15
PROVIDERS: ADMIT Internal Medicine Nephrology; ATTEND Internal Medicine Nephrology